=== PATIENT | male | born 1955 | race Caucasian/White ===

== ENCOUNTER 2018-10-18 22:33 | Emergency (ER) | payer MEDICAID, SELFPAY ==
[2018-10-18 22:35] VITALS: BP 136/82; PULSE 86; RESP 18; TEMP 36.3; O2SAT 99; BMI 22.1
--- NOTE | 2018-10-18 23:07 | ED.VISSUMM ---
- ER Visit Summary Date of Service: 10/18/18 Chief Complaint: Dental pain and gum swelling History of Present Illness: The patient is a 63 M no severe past medical history. Chronic dental decay. States for last 3 days he has had worsening pain in his mouth primarily his lower teeth and gums. No fever. No trouble breathing or swallowing. He has a dental appointment but is not till the . He states using Tylenol but is not controlling his pain. Physical Examination: Older male no acute distress. Vital signs are stable afebrile. Significant other at bedside. HEENT exam patient has very very poor dentition. Multiple missing teeth. Multiple eroded teeth or gums. Multiple teeth with severe cavities. Is got multiple areas of gingivitis. I do not see any abscesses or any need to be drained. He has no trismus. He has no trouble swallowing or breathing. There is no Dimas's angina. Neck nontender no lymphadenopathy. Lungs clear to auscultation bilaterally. Heart regular rhythm no murmur. Abdomen soft nontender. Patient moving all 4 extremities. Neurologically is awake alert. Test Results: None Emergency Department Course and Treatment: P.o. Pen-Vee K and Ro[place]. Treatment Plan: Follow-up with his dentist as soon as possible. Warm salt water gargling. Pen-Vee K 4 times a day for 10 days. Rolette for pain and limited Motrin. Disposition: Discharge Impression: Acute on chronic dental decay, gingivitis, dental caries and pain This note was generated with Estimote dictation software. It may contain incorrect words, spelling, and punctuation that were not noted in review of the chart prior to signing ED Disposition - Plan for ED Patient: Referrals: [facility] Sabrina Kern [Primary Care Provider] -
--- NOTE | 2018-10-18 23:11 | ED.DCSUM_ITS ---
- ER Visit Summary Date of Service: 10/18/18 Chief Complaint: Dental pain and gum swelling History of Present Illness: The patient is a 63 M no severe past medical history. Chronic dental decay. States for last 3 days he has had worsening pain in his mouth primarily his lower teeth and gums. No fever. No trouble breathing or swallowing. He has a dental appointment but is not till the . He states using Tylenol but is not controlling his pain. Physical Examination: Older male no acute distress. Vital signs are stable afebrile. Significant other at bedside. HEENT exam patient has very very poor dentition. Multiple missing teeth. Multiple eroded teeth or gums. Multiple teeth with severe cavities. Is got multiple areas of gingivitis. I do not see any abscesses or any need to be drained. He has no trismus. He has no trouble swallowing or breathing. There is no Dimas's angina. Neck nontender no lymphadenopathy. Lungs clear to auscultation bilaterally. Heart regular rhythm no murmur. Abdomen soft nontender. Patient moving all 4 extremities. Neurologically is awake alert. Test Results: None Emergency Department Course and Treatment: P.o. Pen-Vee K and [place]. Treatment Plan: Follow-up with his dentist as soon as possible. Warm salt water gargling. Pen-Vee K 4 times a day for 10 days. Norton for pain and limited Motrin. Disposition: Discharge Impression: Acute on chronic dental decay, gingivitis, dental caries and pain This note was generated with ChickRx dictation software. It may contain incorrect words, spelling, and punctuation that were not noted in review of the chart prior to signing ED Disposition - Plan for ED Patient: Referrals: [facility] Sabrina Kern [Primary Care Provider] -
--- NOTE | 2018-10-18 23:11 | ED.DEP ---
ED Disposition - Plan for ED Patient: Disposition: Home or Assisted Living Instructions: ED [facility] Prescriptions: Hydrocodone Bitart/Apap 5-325 [[place] 5MG-325MG] 1 tab PO Q6H PRN PRN 3 Days #10 tab PRN Reason: Pain Penicillin Vk [Pen-Vee K , V-Cillin K] 500 mg PO 4X/DAY 10 Days tab Referrals: [facility],Sabrina Dalton [Primary Care Provider] - As soon as possible Additional Instructions: See your dentist as soon as possible. Warm salt water gargling. Penicillin 4 times a day. Limited [place] for pain
--- NOTE | 2018-10-18 23:14 | DCINST.ED_ITS ---
ED Disposition - Plan for ED Patient: Disposition: Home or Assisted Living Instructions: ED [facility] Prescriptions: Hydrocodone Bitart/Apap 5-325 [[place] 5MG-325MG] 1 tab PO Q6H PRN PRN 3 Days #10 tab PRN Reason: Pain Penicillin Vk [Pen-Vee K , V-Cillin K] 500 mg PO 4X/DAY 10 Days tab Referrals: [facility],Sabrina Dalton [Primary Care Provider] - As soon as possible Additional Instructions: See your dentist as soon as possible. Warm salt water gargling. Penicillin 4 times a day. Limited [place] for pain
[2018-10-18 23:17] VITALS: BP 137/87; PULSE 78; RESP 16; O2SAT 98
[2018-10-18] MEDS: HYDROcodone Bitartrate/Apap 5/325 Tablet PO (23:18)
== END 2018-10-18 23:28 | disposition home or self-care (01) ==
LOC: ED 23:22
PROVIDERS: Emergency Provider Emergency Medicine; Referring Provider Nurse Practitioner Family
DX: K02.9 Dental caries, unspecified (principal); K05.10 Chronic gingivitis, plaque induced; Z72.0 Tobacco use
CPT/HCPCS: 99283

== ENCOUNTER 2021-05-18 08:46 | Inpatient (IN) | payer MEDICARE, MEDICAID, SELFPAY ==
[2021-05-18] VITALS (14 sets, daily range): BP systolic 91–118; BP diastolic 66–79; PULSE 86–109; RESP 16–30; TEMP 36–36.9; O2SAT 84–98; BMI 22.1; BMI 21.9
--- NOTE | 2021-05-18 09:25 | EKG12_ITS ---
Test Reason : CP Blood Pressure : / mmHG Vent. Rate : 092 BPM Atrial Rate : 092 BPM P-R Int : 130 ms QRS Dur : 102 ms QT Int : 360 ms P-R-T Axes : -01 059 037 degrees QTc Int : 445 ms Normal sinus rhythm Low voltage QRS (Limb Leads) Borderline ECG Confirmed by MELANIE MCDOWELL, JORDAN ([id number]), acquisitions editor CHANTELL CHAVEZ ([id number]) on 05/20/2021 10:23:35 AM Referred By: RIVER Confirmed By:JORDAN NAVARRO MD
--- NOTE | 2021-05-18 09:25 | RAD_ITS ---
STUDY: X-RAY CHEST REASON FOR EXAM: Male, 65 years old. Chest pain/sob. TECHNIQUE: Single AP portable view of the chest. COMPARISON: None. FINDINGS: EKG electrodes are seen. Bilateral perihilar airspace disease. This most likely represents pulmonary edema. Bilateral pneumonias cannot be excluded. There is no demonstrated pleural abnormality. Normal size heart. Normal mediastinum and rajani. Normal visualized pulmonary arteries. There is atherosclerotic calcification of the aortic arch with tortuosity. There are diffuse degenerative changes of the visualized thoracic spine. Normal visualized ribs, clavicles, and shoulders. There is no demonstrated abnormality of the visualized soft tissue structures of the upper abdomen. RAD/Chest 1 View (Portable) IMPRESSION: Bilateral perihilar airspace disease suggestive of pulmonary edema. An infectious process should also be ruled out. Electronically Signed: Corey Peñaloza MD at 10:48 EST , Service support ,
--- NOTE | 2021-05-18 09:27 | ED.VIS.CHEST ---
HPI History of Present Illness Chief Complaint: Chest Pain Informant: patient Onset/Context/Timing Onset: Days (3) Activity at onset: gradual Timing: Intermittent Quality: Positive for - (throbbing) Location: Substernal Current Severity: Moderate Maximum Severity: Moderate Worsened By: - (unknown) Relieved By: Nothing Associated Symptoms: Positive for Dyspnea and Cough; Negative for Nausea, Vomiting, Diaphoresis, Fever and Palpitations Narrative Narrative: Patient is a poor historian stating he has had chest discomfort for 3 days off and on, when asked how he describes his discomfort at first, he states he cannot breathe. On further questioning he states he is having some type of throbbing sensation in his chest when it bothers him, and he points to the sternal area. Does not seem to radiate. He has been short of breath with this obviously, and also describes a cough that is occasionally productive of yellow sputum. Denies any fevers or chills or swelling in his legs or specific orthopnea. He does not have any known medical problems, takes no medications, however this is because he never goes to any physician and has no PCP. He denies any specific exposures to COVID-19, and he is adamant he will not be getting the vaccine and he has not before. PFSH PFSH Medical History no medical history no medical history Home Medications NK 05/18/21 [History Last Taken Unknown] Allergy/AdvReac Type Severity Reaction Status Date / Time No Known Allergies Allergy Verified 05/18/21 08:51 Social History Smoking Status: Current every day smoker tobacco type: cigarettes ROS ROS ED Constitutional Constitutional ED: Reports malaise; Denies chills or fever(s) Eyes Eyes: Denies change in vision or diplopia ENT ENT ED: Denies rhinorrhea or sore throat Cardiovascular Cardiovascular: Reports as per HPI and chest pain; Denies palpitations or pedal edema Respiratory/Chest Respiratory/Chest: Reports as per HPI, cough, dyspnea and productive cough; Denies portable oxygen @ home Gastrointestinal Gastrointestinal: Denies abdominal pain, diarrhea, nausea or vomiting Genitourinary Genitourinary ED: Denies dysuria or hematuria Musculoskeletal Musculoskeletal: Denies back pain or neck pain Integumentary Denies abscess or rash Neurologic Neurologic: Denies headache(s), paresthesias or weakness Psychiatric Psychiatric: Denies anxiety or suicidal thoughts EXAM Physical Exam Const Vital Signs: 05/18/21 08:47 05/18/21 10:23 05/18/21 10:24 Temperature 96.8 F L Temperature Source Temporal Pulse Rate 91 88 Respiratory Rate 28 H 20 H Respiratory Effort Blood Pressure 114/74 100/66 Blood Pressure Mean 87 77 Pulse Ox 84 98 98 Oxygen Delivery Method Room Air Nasal Cannula Nasal Cannula Oxygen Flow Rate (L/min) 2 2 05/18/21 12:17 05/18/21 12:30 05/18/21 12:35 Temperature Temperature Source Pulse Rate 86 Respiratory Rate 16 Respiratory Effort Short of Breath Labored Blood Pressure 97/66 Blood Pressure Mean 76 Pulse Ox 91 95 Oxygen Delivery Method Room Air Nasal Cannula Oxygen Flow Rate (L/min) 4 05/18/21 13:36 Temperature Temperature Source Pulse Rate 86 Respiratory Rate 20 H Respiratory Effort Blood Pressure 91/67 Blood Pressure Mean 75 Pulse Ox 94 Oxygen Delivery Method Nasal Cannula Oxygen Flow Rate (L/min) 3 Positive well nourished, well developed and unkempt General Appearance ED: unkempt, well developed and NAD HEENT Reports moist mucous membranes normocephalic and atraumatic Eyes PERRL and EOMs intact bilaterally Neck full ROM and supple Resp normal respiratory effort, normal air movement, no retractions and no use of accessory muscles Resp Narrative: Possibly few high-pitched rhonchi left base otherwise clear and equal bilaterally Cardio regular rate, regular rhythm, no murmurs and no JVD GI non-tender and non-distended Auscultation: normoactive bowel sounds Palpation: soft Back/Spine no CVA tenderness General Back: other FROM Extremity normal to inspection and no calf tenderness General Extremety ED: Negative for edema, pulses abnormal or tenderness General Extremity: Negative for edema or pulses abnormal Neuro oriented x3, CN's II-XII intact bilaterally and no sensory deficits noted Sensorium / Orientation: awake and alert Motor Exam: strength 5/5 throughout Psych Appearance: unkempt Skin no rashes or lesions noted and no wounds MDM MDM MDM Narrative Medical decision making narrative: Basically, work-up is consistent with Covid pneumonia, renal insufficiency, and lack of a pulmonary embolus. He was hypoxic, he continues to be hypoxic despite 3 L nasal cannula, down to 84% so he is on a higher dose nasal cannula at this time and stable clinically and hemodynamically. Patient is having trouble keeping the nasal cannula in his nose. I do not think he is a good candidate for sending home on oxygen at this time. Started on Decadron. Lab Data Attestation: I reviewed the patient's lab results. Labs: Laboratory Results - last 24 hr 05/18/21 05/18/21 05/18/21 08:53 08:53 08:53 WBC 9.7 RBC 5.50 Hgb 16.8 H Hct 49.1 MCV 89.3 MCH 30.5 MCHC 34.2 RDW Std Deviation 42.9 RDW Coeff of Jan 13.1 Plt Count 219 MPV 10.9 Immature Gran % (Auto) 2.700 H Neut % (Auto) 80.7 H Lymph % (Auto) 12.8 L [place] % (Auto) 3.0 Eos % (Auto) 0.2 Baso % (Auto) 0.6 Absolute Neuts (auto) 7.9 H Absolute Lymphs (auto) 1.25 Nucleated RBC % 0 D-Dimer Quant (PE/DVT) 4.25 H* Sodium 137 Potassium 4.3 Chloride 104 Carbon Dioxide 23.0 Anion Gap 10 BUN 34 H Creatinine 2.21 H Estim Creat Clear Calc 32.96 Est GFR (MDRD) Af Amer 38 L Est GFR (MDRD) Non-Af 32 L BUN/Creatinine Ratio 15.4 Glucose 119 H Lactic Acid Calcium 8.7 Troponin I High Sens 14 05/18/21 08:53 WBC RBC Hgb Hct MCV MCH MCHC RDW Std Deviation RDW Coeff of Jan Plt Count MPV Immature Gran % (Auto) Neut % (Auto) Lymph % (Auto) [place] % (Auto) Eos % (Auto) Baso % (Auto) Absolute Neuts (auto) Absolute Lymphs (auto) Nucleated RBC % D-Dimer Quant (PE/DVT) Sodium Potassium Chloride Carbon Dioxide Anion Gap BUN Creatinine Estim Creat Clear Calc Est GFR (MDRD) Af Amer Est GFR (MDRD) Non-Af BUN/Creatinine Ratio Glucose Lactic Acid 4.6 H* Calcium Troponin I High Sens Radiography Diagnostic Testing: Clinical Impression(s) from Imaging Studies Chest X-Ray 05/18/21 09:25 IMPRESSION: Bilateral perihilar airspace disease suggestive of pulmonary edema. An infectious process should also be ruled out. Electronically Signed: Corey Peñaloza MD at 10:48 EST , Service support , Chest CTA 05/18/21 10:08 IMPRESSION: 1. No CT evidence of pulmonary embolism. 2. Severe bilateral pneumonia, pulmonary edema, or ARDS. 3. Suspect reactive mediastinal lymphadenopathy. Electronically Signed: Xavier Ortiz MD at 11:27 EST Tel , Service support , EKG Initial EKG: Attestation: I personally reviewed and interpreted this EKG as follows: Interpretation: Sinus Rhythm and No Acute Injury Pattern Comments: Late transition. Low voltage limb leads without tachycardia or electrical alternans. Prior EKG tracings: not available for review Prior: No Prior Discharge Plan Dx/Rx/DC Orders Clinical Impression: Hypoxemia, Pneumonia due to COVID-19 virus Disposition Disposition: Acute Care Hospital [facility]
[2021-05-18 09:46] LABS: Absolute Lymphocyte Count 1.25 X10^3/uL (0.83-4.51); Absolute Neutrophil Count 7.9 X10^3/uL (2.0-7.7); Basophil# 0.06 X10^3/uL; Basophil% 0.6 % (0-1); Eosinophil# 0.02 X10^3/uL; Eosinophils% 0.2 % (0-5); Hematocrit 49.1 % (40-54); Hemoglobin 16.8 g/dL (13.0-16.5); Lymphocyte # 1.25 X10^3/ul (0.83-4.51); Lymphocyte % 12.8 % (19-41); Mean Corp Hgb Conc 34.2 g/dL (32-36); Mean Corpuscular Hgb 30.5 pg (27.0-32.0); Mean Corpuscular Volume 89.3 fL (80-94); Mean Platelet Vol. 10.9 fl (6.2-12.0); Monocyte# 0.29 X10^3/uL; NRBC Flagged by Analyzer 0 % (0-5); Neutrophil # 7.85 X10^3/uL (2.7-7.7); Neutrophil % 80.7 % (47-70); POSITIVE MORPHOLOGY YES; Platelet Count 219 K/mm3 (150-450); RBC Distribution Width CV 13.1 % (11.6-14.6); RBC Distribution Width SD 42.9 fl (35.1-43.9); White Blood Count 9.7 K/mm3 (4.4-11.0)
[2021-05-18 09:48] LABS: Differential Indicated SCAN CRITERIA MET
[2021-05-18 10:02] LABS: Anion Gap 10 (5-15); BUN 34 mg/dL (7-18); BUN/Creat Ratio 15.4 RATIO (10-20); Calcium,Total 8.7 mg/dL (8.5-10.1); Chloride 104 mmol/L (98-107); Creatinine, Serum 2.21 mg/dL (0.70-1.30); EST Glomerular Filtration Rate 32 mL/min (>60); Est Glom Filt Rate - Afr Amer 38 mL/min (>60); Estimated Creatinine Clearance 32.96 ml/min; Glucose 119 mg/dL (74-106); Potassium 4.3 mmol/L (3.5-5.1); Sodium Level 137 mmol/L (136-145); Troponin-I HS 14 pg/mL (3.0-78.0)
[2021-05-18 10:03] LABS: D-Dimer Quantitative (DVT/PE) 4.25 FEU/ug/m (0.27-0.49)
--- NOTE | 2021-05-18 10:08 | CT_ITS ---
STUDY: CTA CHEST REASON FOR EXAM: Male, 65 years old. cp, sob, elevated d-dimer RADIATION DOSAGE (If Supplied By Facility): CTDIvol = ( 11.54 ) mGy, DLP = ( 403.77 ) mGycm TECHNIQUE: The examination was performed with the intravenous administration of IV 100mL Isovue-370. Post-processing of the angiographic images was performed, with multiplanar reformation and 3D reconstruction. Individualized dose optimization techniques were used for this CT. COMPARISON: Chest x-ray earlier today FINDINGS: Normal enhancement of the main pulmonary artery and right and left pulmonary arteries. Normal enhancement of the bilateral peripheral pulmonary arteries. There is no demonstrated pulmonary embolism. Normal thoracic aorta and visualized great vessels. There is no demonstrated aortic dissection. Normal heart and pericardium. Several mildly enlarged mediastinal lymph nodes which are likely reactive. The largest discrete lymph node is a subcarinal lymph node measuring 1.5 x 2.0 cm. Normal hilar regions. Normal visualized trachea and bronchi. The lungs are well expanded. Bilateral diffuse groundglass and alveolar opacities consistent with pneumonia, pulmonary edema, or ARDS. Mild emphysematous changes. Normal pleura. Normal chest wall structures. Normal osseous structures. Normal visualized upper abdomen. CT/CTA Chest W/WO Contrast IMPRESSION: 1. No CT evidence of pulmonary embolism. 2. Severe bilateral pneumonia, pulmonary edema, or ARDS. 3. Suspect reactive mediastinal lymphadenopathy. Electronically Signed: Xavier Ortiz MD at 11:27 EST Tel , Service support ,
[2021-05-18 10:13] LABS: Lactic Acid 4.6 mmol/L (0.4-1.9)
[2021-05-18] MEDS: Aspirin 81 MG TAB.CHEW 324 MG PO (10:28)
[2021-05-18] MEDS: 0.9% Normal Saline 1,000 ML 999 ML IV (10:28)
[2021-05-18 13:42] LABS: Reflex Lactate? Y
[2021-05-18] MEDS: dexAMETHasone 10 MG/ML Vial 6 MG IV (14:30)
[2021-05-18 15:01] LABS: Lactic Acid 1.5 mmol/L (0.4-1.9)
--- NOTE | 2021-05-18 15:38 | HP.PCM.HOS_ITS ---
HPI - General HPI Narrative KAI MORALES, is a 65 M who presents to the hospital with shortness of breath and mild chest pain. Symptoms have been going on for about 3 days now. He did have an episode when this first started that showed some dark stools but he has not had any further episodes of dark stool since then. Hemoglobin on admission is 16.8. He is unvaccinated and was found to have Covid pneumonia here in the hospital. He has been hypoxic down into the 80s here as well. Hemoglobin is 16.8 as stated previously, his creatinine is 2.21 however he does not see a doctor therefore we do not know what his baseline renal function is. Because of his chest pain troponin was obtained which was unremarkable and EKG was nonischemic. [facility] Medical History no medical history Home Medications NK 05/18/21 [History Last Taken Unknown] Allergy/AdvReac Type Severity Reaction Status Date / Time No Known Allergies Allergy Verified 05/18/21 08:51 Family History (Updated 05/18/21 @ 15:[address] Tommy Sousa MD) Other Cancer Surgical History no surgical history no surgical history Social History Smoking Status: Current every day smoker tobacco type: cigarettes ROS Constitutional Constitutional: Denies chills, fatigue, fever(s) or malaise Eyes Eyes: Denies blurry vision ENT HEENT: Denies headache(s) or nasal discharge Cardiovascular Cardiovascular: Denies chest pain, dyspnea on exertion or syncope Respiratory/Chest Respiratory/Chest: Reports cough and shortness of breath at rest; Denies shortness of breath with exertion Gastrointestinal Gastrointestinal: Denies constipation, diarrhea, nausea or vomiting Genitourinary Genitourinary: Denies dysuria Neurologic Neurologic: Denies focal weakness, numbness or tremor(s) Psychiatric Psychiatric: Denies anxiety or depression Vital Signs Vital Signs Vital Signs: 05/18/21 08:47 05/18/21 10:23 05/18/21 10:24 Temperature 96.8 F L Temperature Source Temporal Pulse Rate 91 88 Respiratory Rate 28 H 20 H Respiratory Effort Blood Pressure 114/74 100/66 Blood Pressure Mean 87 77 Pulse Ox 84 98 98 Oxygen Delivery Method Room Air Nasal Cannula Nasal Cannula Oxygen Flow Rate (L/min) 2 2 05/18/21 12:17 05/18/21 12:30 05/18/21 12:35 Temperature Temperature Source Pulse Rate 86 Respiratory Rate 16 Respiratory Effort Short of Breath Labored Blood Pressure 97/66 Blood Pressure Mean 76 Pulse Ox 91 95 Oxygen Delivery Method Room Air Nasal Cannula Oxygen Flow Rate (L/min) 4 05/18/21 13:36 05/18/21 14:28 05/18/21 15:23 Temperature 97.8 F Temperature Source Temporal Pulse Rate 86 91 98 Respiratory Rate 20 H 18 20 H Respiratory Effort Blood Pressure 91/67 118/67 108/79 Blood Pressure Mean 75 84 88 Pulse Ox 94 93 90 Oxygen Delivery Method Nasal Cannula Nasal Cannula Nasal Cannula Oxygen Flow Rate (L/min) 3 4 4 Weight Weight: 158 lb 6.4 oz Body Mass Index (BMI) 22.1 Physical Exam Const alert, oriented x3 and no apparent distress General Appearance: cooperative HEENT normocephalic and moist oral mucous membranes Eyes PERRL, EOMs intact bilaterally and conjunctivae normal Neck supple and no JVD Resp normal respiratory effort, no retractions and no use of accessory muscles Auscultation: crackles; Negative for rales, rhonchi or wheezes Cardio regular rate, regular rhythm, S1 normal heart sound, S2 normal heart sound and no murmurs GI soft to palpation, non-tender and non-distended; Negative for hepatosplenomegaly Extremity no clubbing, cyanosis or edema Skin no rashes or lesions noted Neuro no focal motor deficits and no sensory deficits noted Psych affect normal Appearance: appropriate Results Lab / Micro Data Result Diagrams: 05/18/21 08:53 05/18/21 08:53 Labs: Laboratory Results - last 24 hr 05/18/21 08:53: WBC 9.7, RBC 5.50, Hgb 16.8 H, Hct 49.1, MCV 89.3, MCH 30.5, MCHC 34.2, RDW Std Deviation 42.9, RDW Coeff of Jan 13.1, Plt Count 219, MPV 10.9, Immature Gran % (Auto) 2.700 H, Neut % (Auto) 80.7 H, Lymph % (Auto) 12.8 L, [place] % (Auto) 3.0, Eos % (Auto) 0.2, Baso % (Auto) 0.6, Absolute Neuts (auto) 7.9 H, Absolute Lymphs (auto) 1.25, Nucleated RBC % 0 05/18/21 08:53: Sodium 137, Potassium 4.3, Chloride 104, Carbon Dioxide 23.0, Anion Gap 10, BUN 34 H, Creatinine 2.21 H, Estim Creat Clear Calc 32.96, Est GFR (MDRD) Af Amer 38 L, Est GFR (MDRD) Non-Af 32 L, BUN/Creatinine Ratio 15.4, Glucose 119 H, Calcium 8.7, Troponin I High Sens 14 05/18/21 08:53: D-Dimer Quant (PE/DVT) 4.25 H* 05/18/21 08:53: Lactic Acid 4.6 H* 05/18/21 14:13: Lactic Acid 1.5 Micro: Microbiology 05/18/21 08:53 Interface Orders SARS-CoV-2 Antigen (Rapid) - Final SARS-CoV-2 (COVID 19) Radiology Impression Chest X-Ray 05/18/21 09:25 IMPRESSION: Bilateral perihilar airspace disease suggestive of pulmonary edema. An infectious process should also be ruled out. Electronically Signed: Corey Peñaloza MD at 10:48 EST , Service support , Chest CTA 05/18/21 10:08 IMPRESSION: 1. No CT evidence of pulmonary embolism. 2. Severe bilateral pneumonia, pulmonary edema, or ARDS. 3. Suspect reactive mediastinal lymphadenopathy. Electronically Signed: Xavier Ortiz MD at 11:27 EST Tel , Service support , Assessment & Plan Assessment/Plan (1) Acute respiratory failure with hypoxia: (2) Pneumonia due to COVID-19 virus: PLAN: 1. Acute hypoxic respiratory failure secondary to COVID-19 pneumonia ?Kidney function is 2.21, this may be consistent with an LIBIA but we do not have any baseline therefore this precludes remdesivir use ?Continue with Decadron for 10 days ?Covid symptoms started about 3 days ago so he will come out of quarantine on 06/03/2021 ?She is unvaccinated ?Given his renal function will give him some IV fluids and if he does improve significantly than that would indicate that this renal function is an LIBIA ?Unlikely that he has active GI bleed, his hemoglobin is 16.8, will monitor and if drops would recommend further work-up ?CT of the chest was negative for PE but is D-dimer was elevated to 4.25, therefore we will continue with twice daily dosing of Lovenox DVT: Lovenox Charges/Coding Visit Charges Inpatient E&M: 07405 Init Hosp L2
[2021-05-18] MEDS: Albuterol Sulfate 8 gm Inhaler (60 puffs) 3 PUFF INHALATION (15:41)
[2021-05-18] MEDS: 0.9% Normal Saline 1,000 ML 100 ML IV (20:47)
[2021-05-18] MEDS: Enoxaparin 30 MG/0.3 ML Syringe SC (20:47)
[2021-05-19] VITALS (11 sets, daily range): BP systolic 112–143; BP diastolic 67–80; PULSE 86–125; RESP 16–20; TEMP 36.6–37.2; O2SAT 93–95
[2021-05-19 07:57] LABS: Absolute Lymphocyte Count 0.62 X10^3/uL (0.83-4.51); Absolute Neutrophil Count 7.7 X10^3/uL (2.0-7.7); Basophil# 0.01 X10^3/uL; Basophil% 0.1 % (0-1); Hematocrit 40.3 % (40-54); Hemoglobin 13.4 g/dL (13.0-16.5); Lymphocyte # 0.62 X10^3/ul (0.83-4.51); Mean Corp Hgb Conc 33.3 g/dL (32-36); Mean Corpuscular Hgb 29.5 pg (27.0-32.0); Mean Corpuscular Volume 88.8 fL (80-94); Mean Platelet Vol. 11.3 fl (6.2-12.0); Monocyte# 0.33 X10^3/uL; Monocyte% 3.7 % (0-10); NRBC Flagged by Analyzer 0 % (0-5); Neutrophil # 7.67 X10^3/uL (2.7-7.7); Neutrophil % 86.8 % (47-70); POSITIVE MORPHOLOGY YES; Platelet Count 231 K/mm3 (150-450); RBC Distribution Width CV 13.2 % (11.6-14.6); RBC Distribution Width SD 43.3 fl (35.1-43.9); Red Blood Count 4.54 M/mm3 (4.6-6.2); White Blood Count 8.8 K/mm3 (4.4-11.0)
[2021-05-19 08:12] LABS: Differential Indicated SCAN CRITERIA MET
[2021-05-19 08:52] LABS: Anion Gap 9 (5-15); BUN 28 mg/dL (7-18); BUN/Creat Ratio 22.2 RATIO (10-20); Calcium,Total 7.2 mg/dL (8.5-10.1); Chloride 110 mmol/L (98-107); Creatinine, Serum 1.26 mg/dL (0.70-1.30); EST Glomerular Filtration Rate 61 mL/min (>60); Est Glom Filt Rate - Afr Amer 73 mL/min (>60); Estimated Creatinine Clearance 56.65 ml/min; Glucose 115 mg/dL (74-106); Potassium 4.6 mmol/L (3.5-5.1); Sodium Level 139 mmol/L (136-145)
[2021-05-19] MEDS: Enoxaparin 30 MG/0.3 ML Syringe SC ×2 (09:12→21:14)
[2021-05-19] MEDS: dexAMETHasone 4 MG Tablet 6 MG PO (09:12)
[2021-05-19] MEDS: Acetaminophen 325 MG Tablet 650 MG PO (14:00)
--- NOTE | 2021-05-19 14:48 | CHAPLAIN ---
Type of Pastoral Visit ___ Initial Visit ___ Follow-up Visit ___ On-call Visit ___ General Patient Visit ___ Spiritual Assessment ___ Family Conference ___ Bereavement ___ Rapid Response ___ Code Blue _x__ Other (describe below) Pastoral Care Referral From _x__ Patient ___ Family ___ Nurse ___ Physician ___ Associate Professor Of Counseling ___ Magnetizer ___ Other (describe below) Sacrament/Intervention ___ Active listening ___ Anointing ___ Spiritism ___ Bereavement ___ Communion ___ Ina exploration ___ ___ Life review ___ Prayer ___ Reconciliation ___ Sacrament of Sick ___ Supportive presence ___ Wedding _x__ Other (describe below) Pastoral Comments phone call into isolation room; the patient is able to answer the phone and talk briefly; pt reports that he is doing well and has no needs at this time; pt states he has been talking to family members on the phone
--- NOTE | 2021-05-19 15:00 | CASEMGMT ---
NAIMA GUTIERREZ Assessment: Face to Face with pt for initial transition planning/care coordination assessment. NAIMA GUTIERREZ introduced self and role at [facility], pt voices understanding and consents to assessment. Pt is A/O x4 and answers all questions appropriately at this time. Pt sitting up in bed with O2 on in no distress. Care providers, pharmacy, and demographics verified/updated. Admitting Dx: COVID PCP:[facility] Specialists: Pt denies. Preferred Pharmacy: [facility] Insurance: [facility], [facility] Prescription Benefit: yes LW/HPOA: Pt denies having a LW/DPOA and denies need for info regarding AD. LNOK: Talita Desouza, Living Arrangements: Pt lives with and son in a two story house with no steps to enter. Pt reports he is I in ADL's and denies concerns at home. Transportation: Pt states his transports him to medical appts as he does not drive. DME/HHC/SNF: Pt denies having any DME in the home, hx of HHC or SNF stays. Pt states his and son do not have COVID. He states he was tested at [facility]. Pt states he is able to quarantine from them using separate bedrooms and bathrooms. Pt has family who can provide him with groceries and supplies. Discussed local in network DME companies should pt need to go home with O2, pt has no preference. Pt states no concerns with going home at time of dc. Pt states no further concerns/needs. CM to follow. Advised pt to ask CM if any further question/concerns/needs arise, voices understanding. Pt Goal: Home Plan: Home
--- NOTE | 2021-05-19 15:26 | PN.HOSP_ITS ---
Subjective Subjective Patient states his breathing feels better today. He has required up titration of his oxygen now on 11 L of high flow. Oxygenation has been stable on this thus far. He does have a history of tobacco abuse for a long period of time and was smoking up until approximately 5 days prior to admission. He admits to [facility] [place] close to a pack a day. Objective Data Objective Data Vital Signs: Vital Signs Temp Pulse Resp BP Pulse Ox 98.6 F 108 H 18 118/67 94 05/19/21 12:21 05/19/21 12:21 05/19/21 12:21 05/19/21 12:05/19/21 12: Oxygen Flow Rate (L/min) 11 Oxygen Delivery Method High Flow Weight: 70.4 kg Body Mass Index (BMI) 21.9 Intake & Output: Intake and Output for Last 24 Hours 05/17/21 05/18/21 05/19/21 23:59 23:59 23:59 Intake Total 1000 / 1000 2049 Balance 1000 / 1000 2049 Lab / Micro Data Result Diagrams: 05/19/21 07:00 05/19/21 07:00 Labs: Laboratory Results - last 24 hr 05/19/21 07:00: WBC 8.8, RBC 4.54 L, Hgb 13.4, Hct 40.3, MCV 88.8, MCH 29.5, MCHC 33.3, RDW Std Deviation 43.3, RDW Coeff of Jan 13.2, Plt Count 231, MPV 11.3, Immature Gran % (Auto) 2.400 H, Neut % (Auto) 86.8 H, Lymph % (Auto) 7.0 L , Desha % (Auto) 3.7, Eos % (Auto) 0.0, Baso % (Auto) 0.1, Absolute Neuts (auto) 7.7, Absolute Lymphs (auto) 0.62 L, Nucleated RBC % 0 05/19/21 07:00: Sodium 139, Potassium 4.6, Chloride 110 H, Carbon Dioxide 20.0 L , Anion Gap 9, BUN 28 H, Creatinine 1.26, Estim Creat Clear Calc 56.65, Est GFR (MDRD) Af Amer 73, Est GFR (MDRD) Non-Af 61, BUN/Creatinine Ratio 22.2 H, Glucose 115 H, Calcium 7.2 L Micro: Microbiology 05/18/21 08:53 Interface Orders SARS-CoV-2 Antigen (Rapid) - Final SARS-CoV-2 (COVID 19) Physical Exam Const alert, oriented x3, no apparent distress and average body habitus Constitutional Narrative: Older somewhat disheveled white male sitting up in bed, appears comfortable, nontoxic, mild tachypnea and dyspnea with conversation Exam Limitations: no limitations HEENT head/scalp atraumatic and moist oral mucous membranes HEENT Narrative: Poor dentition, Mallampati 2, no thrush Head and Scalp: normocephalic Resp no retractions and no use of accessory muscles Resp Narrative: Mild tachypnea and conversational dyspnea, diffusely diminished Auscultation: Negative for crackles, rales, rhonchi or wheezes Cardio regular rhythm, S1 normal heart sound, S2 normal heart sound, no murmurs, no rub, no gallops, no clicks and no JVD Cardio Narrative: Mild tachycardia GI normal to inspection, nondistended, normoactive bowel sounds, soft to palpation, non-tender and non-distended Extremity no clubbing, cyanosis or edema Peripheral Pulses: Yes pulses 2+ throughout Neuro oriented x3, moves all extremities and no focal motor deficits Sensorium / Orientation: awake and alert Speech: speech normal Assessment & Plan Assessment/Plan (1) Acute respiratory failure with hypoxia: (2) Pneumonia due to COVID-19 virus: (3) LIBIA (acute kidney injury): (4) Metabolic acidosis: (5) Hyperchloremia: PLAN: Acute hypoxic respiratory failure secondary to COVID-19 pneumonia -Symptoms started 05/15/2021 will need isolation until 06/04/2021 -Vaccination recommended although patient is adamant that he will not be receiving one -Continue Decadron day 2 of 10 -Start remdesivir with normalization of serum creatinine day 1 of 5 -Patient currently on heated high flow nasal cannula at 11 L with oxygen saturations 93 to 95% -Continue incentive spirometer and Acapella -Encourage mobility and prone lying as able -Check sputum culture if patient is able to produce -DuoNebs -We will consult for baricitinib if patient ends up on air Vo LIBIA -Resolved with IV hydration -Serum creatinine is now 1.26 from 2.21 on admission -Patient received 1 L IV hydration -Monitor -Avoid nephrotoxins as able Lactic acidosis -Suspect from hypoxia -Resolved Metabolic acidosis secondary to hyperchloremia -Patient has completed IV fluids -Repeat a.m. lab Tobacco abuse -Given tobacco abuse history I suspect patient may have COPD at baseline that is undiagnosed -Nicotine patch ordered -Recommend cessation -Would benefit from outpatient PFTs after discharge DVT prophylaxis Enoxaparin 30 mg twice daily CODE STATUS -Full code Charges/Coding Visit Charges Inpatient E&M: 40181 Subs Hosp L2
[2021-05-19] MEDS: Ipratropium/Albuterol Sulfate 3 ML AMPUL.NEB INHALATION (19:48)
[2021-05-19] MEDS: guaiFENesin 1,200 MG Tablet 1200 MG PO (21:15)
[2021-05-20] VITALS (16 sets, daily range): BP systolic 103–117; BP diastolic 59–81; PULSE 85–109; RESP 18–24; TEMP 36.6; O2SAT 88–96
[2021-05-20 06:50] LABS: Hematocrit 37.9 % (40-54); Hemoglobin 12.9 g/dL (13.0-16.5); Mean Corpuscular Hgb 30.2 pg (27.0-32.0); Mean Corpuscular Volume 88.8 fL (80-94); Mean Platelet Vol. 11.1 fl (6.2-12.0); Platelet Count 258 K/mm3 (150-450); RBC Distribution Width CV 13.7 % (11.6-14.6); RBC Distribution Width SD 44.6 fl (35.1-43.9); Red Blood Count 4.27 M/mm3 (4.6-6.2); White Blood Count 11.1 K/mm3 (4.4-11.0)
[2021-05-20] MEDS: Ipratropium/Albuterol Sulfate 3 ML AMPUL.NEB INHALATION ×4 (06:55→20:41)
[2021-05-20 07:12] LABS: ALB/GLOB Ratio 0.5 RATIO (0.9-2.4); AST(SGOT) 81 U/L (15-37); Alanine Aminotransfer ALT/SGPT 26 U/L (16-61); Albumin, Serum 2.1 g/dL (3.2-5.0); Alkaline Phosphatase 111 U/L (45-117); Anion Gap 7 (5-15); BUN 31 mg/dL (7-18); BUN/Creat Ratio 29.5 RATIO (10-20); Calcium,Total 8.2 mg/dL (8.5-10.1); Chloride 112 mmol/L (98-107); Creatinine, Serum 1.05 mg/dL (0.70-1.30); EST Glomerular Filtration Rate 75 mL/min (>60); Est Glom Filt Rate - Afr Amer 90 mL/min (>60); Estimated Creatinine Clearance 67.98 ml/min; Globulin 4.4 g/dL (2.2-4.2); Glucose 139 mg/dL (74-106); Potassium 4.5 mmol/L (3.5-5.1); Protein, Total 6.5 g/dL (6.4-8.2); Sodium Level 143 mmol/L (136-145)
--- NOTE | 2021-05-20 08:52 | PCS.PANDOC ---
PANDEMIC DOCUMENTATION INITIATED: Date: 01/26/2021 Time: 190
[2021-05-20] MEDS: guaiFENesin 1,200 MG Tablet 1200 MG PO ×2 (08:56→20:56)
[2021-05-20] MEDS: dexAMETHasone 4 MG Tablet 6 MG PO (08:56)
[2021-05-20] MEDS: Enoxaparin 30 MG/0.3 ML Syringe SC ×2 (08:56→20:56)
[2021-05-20] MEDS: 0.9% Saline Lock 10 ML Syringe IV (10:33)
--- NOTE | 2021-05-20 14:04 | PCM.PN.HOSP ---
Subjective Subjective Patient states his breathing is feeling better today. He has been able to be weaned from 11 to 7 L nasal cannula. He states that he is coughing up sputum and quite a bit of it. Sputum culture is pending. No other issues noted and patient has no other needs at this time. Objective Data Objective Data Vital Signs: Vital Signs Temp Pulse Resp BP Pulse Ox 97.9 F 95 20 H 106/70 92 05/20/21 08:49 05/20/21 12:27 05/20/21 10:58 05/20/21 08:49 05/20/21 12:27 Oxygen Flow Rate (L/min) 7 Oxygen Delivery Method High Flow Weight: 70.4 kg Body Mass Index (BMI) 21.9 Intake & Output: Intake and Output for Last 24 Hours 05/18/21 05/19/21 05/20/21 23:59 23:59 23:59 Intake Total 1000 / 1000 2750 / 2750 550 / 550 Output Total 500 / 500 Balance 1000 / 1000 2750 / 2750 50 / 50 Lab / Micro Data Result Diagrams: 05/20/21 06:30 05/20/21 06:30 Labs: Laboratory Results - last 24 hr 05/20/21 06:30: WBC 11.1 H, RBC 4.27 L, Hgb 12.9 L, Hct 37.9 L, MCV 88.8, MCH 30.2, MCHC 34.0, RDW Std Deviation 44.6 H, RDW Coeff of Jan 13.7, Plt Count 258, MPV 11.1 05/20/21 06:30: Sodium 143, Potassium 4.5, Chloride 112 H, Carbon Dioxide 24.0, Anion Gap 7, BUN 31 H, Creatinine 1.05, Estim Creat Clear Calc 67.98, Est GFR (MDRD) Af Amer 90, Est GFR (MDRD) Non-Af 75, BUN/Creatinine Ratio 29.5 H, Glucose 139 H, Calcium 8.2 L, Total Bilirubin 0.70, AST 81 H, ALT 26, Alkaline Phosphatase 111, Total Protein 6.5, Albumin 2.1 L, Globulin 4.4 H, Albumin/Globulin Ratio 0.5 L Micro: Microbiology 05/20/21 07:08 Sputum, Expectorated/Coughed Gram Stain - Final 05/18/21 09:42 Blood Culture (Wb) - Anticubital Left Blood Culture - Preliminary No growth in 48 hours. 05/18/21 08:53 Blood Culture (Wb) - Anticubital Right Blood Culture - Preliminary No growth in 48 hours. 05/18/21 08:53 Interface Orders SARS-CoV-2 Antigen (Rapid) - Final SARS-CoV-2 (COVID 19) Physical Exam Const alert, oriented x3, no apparent distress and average body habitus Constitutional Narrative: Older white male sitting up in a chair at the bedside watching television, appears comfortable, nontoxic, nursing at bedside General Appearance: cooperative Exam Limitations: no limitations HEENT normocephalic, head/scalp atraumatic and moist oral mucous membranes HEENT Narrative: Edentulous, Mallampati 2, no thrush Head and Scalp: normocephalic Resp normal respiratory effort, no retractions and no use of accessory muscles Resp Narrative: Tachypnea has resolved, no conversational dyspnea, mildly diminished diffusely Auscultation: Negative for crackles, rales, rhonchi or wheezes Cardio regular rate, regular rhythm, S1 normal heart sound, S2 normal heart sound, no murmurs, no rub, no gallops, no clicks and no JVD GI normal to inspection, nondistended, normoactive bowel sounds, soft to palpation, non-tender and non-distended; Negative for hepatosplenomegaly Extremity no clubbing, cyanosis or edema Peripheral Pulses: Yes pulses 2+ throughout Neuro oriented x3, moves all extremities and no focal motor deficits Sensorium / Orientation: awake and alert Speech: speech normal Psych Appearance: appropriate Assessment & Plan Assessment/Plan (1) Acute respiratory failure with hypoxia: (2) Pneumonia due to COVID-19 virus: (3) Bacterial pneumonia: PLAN: Acute hypoxic respiratory failure secondary to COVID-19 pneumonia -Symptoms started 05/15/2021 will need isolation until 06/04/2021 -Vaccination recommended although patient is adamant that he will not be receiving one -Continue Decadron day 3 of -Start remdesivir with normalization of serum creatinine day 2 of 5 -Patient currently on heated high flow nasal cannula at 7 L with oxygen saturations 92 to 95% -Continue incentive spirometer and Acapella -Encourage mobility and prone lying as able -Capri -We will consult for baricitinib if patient ends up on air Vo Bacterial pneumonia -Sputum culture shows Gram stain positive for gram-positive cocci in chains and clusters as well as gram-negative cocci bacillus -Start Vanco and Zosyn -Await culture results with identification and sensitivities LIBIA -Resolved Metabolic acidosis secondary to hyperchloremia -Resolved Tobacco abuse -Given tobacco abuse history I suspect patient may have COPD at baseline that is undiagnosed -Nicotine patch ordered -Recommend cessation -Would benefit from outpatient PFTs after discharge DVT prophylaxis Enoxaparin 30 mg twice daily CODE STATUS -Full code Charges/Coding Visit Charges Inpatient E&M: 51690 Subs Hosp L2
--- NOTE | 2021-05-20 15:34 | NURSING ---
spoke with shyanne in phamacy about 1400 vanc to be started and not here -she wayne she will check on that
[2021-05-20] MEDS: Vancomycin IV 1,000 MG/200 ML BAG 200 MG IV (15:55)
--- NOTE | 2021-05-20 15:59 | NURSING ---
vancomycin just arrived
--- NOTE | 2021-05-20 17:02 | PCM.RX.CS ---
Consult Pharmacy has been consulted to manage selected antiobiotic: Vancomycin Type of Consult: New start Suspected Infection: Pneumonia Labs: Sodium 143 mmol/L (136-145) 05/20/21 06:30 Potassium 4.5 mmol/L (3.5-5.1) 05/20/21 06:30 Chloride 112 mmol/L (98-107) H 05/20/21 06:30 Carbon Dioxide 24.0 mmol/L (21.0-32.0) 05/20/21 06:30 Anion Gap 7 (5-15) 05/20/21 06:30 BUN 31 mg/dL (7-18) H 05/20/21 06:30 Creatinine 1.05 mg/dL (0.70-1.30) 05/20/21 06:30 Est GFR (MDRD) Af Amer 90 mL/min (>60) 05/20/21 06:30 Est GFR (MDRD) Non-Af 75 mL/min (>60) 05/20/21 06:30 BUN/Creatinine Ratio 29.5 RATIO (10-20) H 05/20/21 06:30 Glucose 139 mg/dL (74-106) H 05/20/21 06:30 Microbiology: Microbiology 05/20/21 07:08 Sputum, Expectorated/Coughed Gram Stain - Final 05/18/21 09:42 Blood Culture (Wb) - Anticubital Left Blood Culture - Preliminary No growth in 48 hours. 05/18/21 08:53 Blood Culture (Wb) - Anticubital Right Blood Culture - Preliminary No growth in 48 hours. 05/18/21 08:53 Interface Orders SARS-CoV-2 Antigen (Rapid) - Final SARS-CoV-2 (COVID 19) Goal Trough: 15-20 mcg/mL Pharmacy Plan for Drug Dosing: NEW START IV VANCOMYCIN Consulting Physician: Dr. Correa Indication: Pneumonia Goal Trough: 15-20 SrCr: 1.05 CrCl: 68 mL/min Comments: Initial 1g IV x1 ordered and administered 05/20/21 @1555 Vancomcyin Dose: 750mg IV Q12h to start 05/21/21 @0400 Pending Level: 05/22/21 @0330, prior to 4th total dose of vancomycin per protocol Pharmacy Service will continue to monitor and adjust dosing as required.
[2021-05-21] VITALS (12 sets, daily range): BP systolic 103–123; BP diastolic 59–67; PULSE 66–88; RESP 18–22; TEMP 36.3–36.6; O2SAT 73–97
[2021-05-21] MEDS: Ipratropium/Albuterol Sulfate 3 ML AMPUL.NEB INHALATION ×4 (07:49→19:54)
[2021-05-21 07:56] LABS: Hematocrit 37.8 % (40-54); Hemoglobin 12.4 g/dL (13.0-16.5); Mean Corp Hgb Conc 32.8 g/dL (32-36); Mean Corpuscular Hgb 29.2 pg (27.0-32.0); Mean Corpuscular Volume 89.2 fL (80-94); Mean Platelet Vol. 11.3 fl (6.2-12.0); Platelet Count 309 K/mm3 (150-450); RBC Distribution Width CV 13.9 % (11.6-14.6); RBC Distribution Width SD 45.2 fl (35.1-43.9); Red Blood Count 4.24 M/mm3 (4.6-6.2); White Blood Count 11.5 K/mm3 (4.4-11.0)
[2021-05-21] MEDS: dexAMETHasone 4 MG Tablet 6 MG PO (08:31)
[2021-05-21] MEDS: guaiFENesin 1,200 MG Tablet 1200 MG PO ×2 (08:32→20:17)
[2021-05-21] MEDS: Furosemide 40 MG/4 ML Vial IV (08:32)
[2021-05-21] MEDS: 0.9% Saline Lock 10 ML Syringe IV (08:32)
[2021-05-21] MEDS: Enoxaparin 30 MG/0.3 ML Syringe SC ×2 (08:32→20:17)
--- NOTE | 2021-05-21 11:18 | PCM.PN.HOSP ---
Subjective Subjective Patient reports he is doing about the same. He is still coughing up sputum. We discussed the fact that it appears that he has aspiration pneumonia on top of his Covid viral pneumonia. He has no acute complaints. He remains on supplemental oxygen between 6 and 7 L with oxygen saturations 91 to 95%. Objective Data Objective Data Vital Signs: Vital Signs Temp Pulse Resp BP Pulse Ox 97.9 F 75 22 H 123/67 H 91 05/21/21 08:27 05/21/21 11:05 05/21/21 11:05 05/21/21 08:27 05/21/21 11:05 Oxygen Flow Rate (L/min) 7 Oxygen Delivery Method Nasal Cannula Weight: 69.3 kg Body Mass Index (BMI) 21.9 Intake & Output: Intake and Output for Last 24 Hours 05/19/21 05/20/21 05/21/21 23:59 23:59 23:59 Intake Total 2750 / 2750 1100 / 1100 865 / 865 Output Total 500 / 500 Balance 2750 / 2750 600 / 600 865 / 865 Lab / Micro Data Result Diagrams: 05/21/21 07:00 05/20/21 06:30 Labs: Laboratory Results - last 24 hr 05/21/21 07:00: WBC 11.5 H, RBC 4.24 L, Hgb 12.4 L, Hct 37.8 L, MCV 89.2, MCH 29.2, MCHC 32.8, RDW Std Deviation 45.2 H, RDW Coeff of Jan 13.9, Plt Count 309, MPV 11.3 Micro: Microbiology 05/20/21 07:08 Sputum, Expectorated/Coughed Gram Stain - Final 05/20/21 07:08 Sputum, Expectorated/Coughed Respiratory Culture - Preliminary Appears to be normal respiratory randall. Further studies to follow. 05/18/21 09:42 Blood Culture (Wb) - Anticubital Left Blood Culture - Preliminary No growth in 48 hours. 05/18/21 08:53 Blood Culture (Wb) - Anticubital Right Blood Culture - Preliminary No growth in 48 hours. 05/18/21 08:53 Interface Orders SARS-CoV-2 Antigen (Rapid) - Final SARS-CoV-2 (COVID 19) Physical Exam Const alert, oriented x3, no apparent distress and average body habitus Constitutional Narrative: Older white male sitting up in a chair at the bedside watching television, appears comfortable, nontoxic General Appearance: cooperative Exam Limitations: no limitations HEENT normocephalic, head/scalp atraumatic and moist oral mucous membranes HEENT Narrative: No thrush Head and Scalp: normocephalic Resp normal respiratory effort, no retractions and no use of accessory muscles Resp Narrative: Few scattered rhonchi Auscultation: Negative for crackles, rales, rhonchi or wheezes Cardio regular rate, regular rhythm, S1 normal heart sound, S2 normal heart sound, no murmurs, no rub, no gallops, no clicks and no JVD Cardio Narrative: Mild tachycardia but improving slowly GI normal to inspection, nondistended, normoactive bowel sounds, soft to palpation, non-tender and non-distended; Negative for hepatosplenomegaly Extremity no clubbing, cyanosis or edema Peripheral Pulses: Yes pulses 2+ throughout Neuro oriented x3, moves all extremities and no focal motor deficits Sensorium / Orientation: awake and alert Speech: speech normal Psych Appearance: appropriate Assessment & Plan Assessment/Plan (1) Acute respiratory failure with hypoxia: (2) Pneumonia due to COVID-19 virus: (3) Aspiration pneumonia: PLAN: Acute hypoxic respiratory failure secondary to COVID-19 pneumonia -Symptoms started 05/15/2021 will need isolation until 06/04/2021 -Vaccination recommended although patient is adamant that he will not be receiving one -Continue Decadron day 4 of 10 -Continue remdesivir day 3 of 5 -Was not initiated on admission secondary to marked LIBIA which has since resolved -Patient currently on heated high flow nasal cannula at 6-7 L with oxygen saturations 91 to 95% -Continue incentive spirometer and Acapella -Encourage mobility and prone lying as able -Capri -We will consult for baricitinib if patient ends up on air Vo Aspiration pneumonia -Likely result of increased work of breathing -We will narrow antibiotics to Unasyn and complete treatment for 6 more days -Day 2 of 7 for antibiotics -Sputum culture shows normal respiratory randall Tobacco abuse -Given tobacco abuse history I suspect patient may have COPD at baseline that is undiagnosed -Nicotine patch ordered -Recommend cessation -Would benefit from outpatient PFTs after discharge DVT prophylaxis Enoxaparin 30 mg twice daily CODE STATUS -Full code Charges/Coding Visit Charges Inpatient E&M: 84175 Subs Hosp L2
--- NOTE | 2021-05-21 12:16 | NURSING ---
hypoxic with activity going from chair back to bed. recovered back to 91% in less than 5 minutes.
--- NOTE | 2021-05-21 14:01 | CHAPLAIN ---
Type of Pastoral Visit ___ Initial Visit ___ Follow-up Visit ___ On-call Visit ___ General Patient Visit ___ Spiritual Assessment ___ Family Conference ___ Bereavement ___ Rapid Response ___ Code Blue _x__ Other (describe below) Pastoral Care Referral From _x__ Patient ___ Family ___ Nurse ___ Physician ___ Ball Worker ___ Media Senior Recruiter ___ Other (describe below) Sacrament/Intervention ___ Active listening ___ Anointing ___ Mandaeism ___ Bereavement ___ Communion ___ Ina exploration ___ ___ Life review ___ Prayer ___ Reconciliation ___ Sacrament of Sick ___ Supportive presence ___ Wedding _x__ Other (describe below) Pastoral Comments phone calls into this isolation room went unanswered; unable to make contact with patient
--- NOTE | 2021-05-21 14:08 | NURSING ---
Addendum entered by Evelin Silva 05/21/21 14:11: pt took his oxygen off once he was up to bsc- unsure why he did this. spo2 84% at that time within a few minutes of resting. oxygen reapplied 15L high flow to assist with recovery. pt 96% on 15L high flow for less than 5 minutes. oxygen turned back down to 7L while sitting on bsc and spo2 92%. Original Note: when up to bsc hypoxic, oxygen turned up to 15L to assist with recovery.
[2021-05-22] VITALS (11 sets, daily range): BP systolic 111–124; BP diastolic 64–75; PULSE 60–88; RESP 18–22; TEMP 36.2–36.6; O2SAT 93–98
[2021-05-22] MEDS: BENZOCAINE/MENTHOL 1 LOZENGE MUCOUS MEM ×2 (02:40→10:33)
[2021-05-22 04:03] LABS: Hemoglobin 11.6 g/dL (13.0-16.5); Mean Corp Hgb Conc 33.1 g/dL (32-36); Mean Corpuscular Hgb 29.4 pg (27.0-32.0); Mean Corpuscular Volume 88.8 fL (80-94); Mean Platelet Vol. 10.8 fl (6.2-12.0); Platelet Count 338 K/mm3 (150-450); RBC Distribution Width CV 13.8 % (11.6-14.6); Red Blood Count 3.94 M/mm3 (4.6-6.2); White Blood Count 12.6 K/mm3 (4.4-11.0)
[2021-05-22 04:26] LABS: ALB/GLOB Ratio 0.4 RATIO (0.9-2.4); AST(SGOT) 63 U/L (15-37); Alanine Aminotransfer ALT/SGPT 36 U/L (16-61); Albumin, Serum 1.8 g/dL (3.2-5.0); Alkaline Phosphatase 117 U/L (45-117); Anion Gap 6 (5-15); BUN 26 mg/dL (7-18); BUN/Creat Ratio 32.7 RATIO (10-20); Calcium,Total 7.7 mg/dL (8.5-10.1); Chloride 112 mmol/L (98-107); Creatinine, Serum 0.79 mg/dL (0.70-1.30); EST Glomerular Filtration Rate 103 mL/min (>60); Est Glom Filt Rate - Afr Amer 125 mL/min (>60); Estimated Creatinine Clearance 70.26 ml/min; Globulin 4.2 g/dL (2.2-4.2); Glucose 127 mg/dL (74-106); Potassium 3.9 mmol/L (3.5-5.1); Sodium Level 143 mmol/L (136-145)
[2021-05-22 04:35] LABS: Vancomycin, Trough Level 4.3 ug/mL (5.0-15.0)
[2021-05-22] MEDS: Ipratropium/Albuterol Sulfate 3 ML AMPUL.NEB INHALATION ×2 (07:30→11:05)
[2021-05-22] MEDS: dexAMETHasone 4 MG Tablet 6 MG PO (08:54)
[2021-05-22] MEDS: Furosemide 40 MG/4 ML Vial IV (08:54)
[2021-05-22] MEDS: 0.9% Saline Lock 10 ML Syringe IV (08:54)
[2021-05-22] MEDS: Enoxaparin 30 MG/0.3 ML Syringe SC ×2 (08:55→22:56)
[2021-05-22] MEDS: guaiFENesin 1,200 MG Tablet 1200 MG PO ×2 (08:55→22:56)
--- NOTE | 2021-05-22 14:02 | PN.HOSP_ITS ---
Subjective Subjective Patient reports his breathing is about the same but overall much better than it was on admission. He states he is still coughing up sputum. He is currently on 7 L nasal cannula with a sat of 94 to 97%. He was assessed yesterday afternoon for oxygen needs and was found to be 84% on room air. Upon ambulation was 7 L his oxygen saturation drops to 74%. Objective Data Objective Data Vital Signs: Vital Signs Temp Pulse Resp BP Pulse Ox 97.8 F 76 18 117/68 93 05/22/21 13:06 05/22/21 13:06 05/22/21 13:06 05/22/21 13:06 05/22/21 13:08 Oxygen Flow Rate (L/min) [At 15 REST with Oxygen] Oxygen Flow Rate (L/min) [ 7 AMBULATING with Oxygen #1] Oxygen Flow Rate (L/min) 6 Oxygen Delivery Method High Flow Weight: 71 kg Body Mass Index (BMI) 21.9 Intake & Output: Intake and Output for Last 24 Hours 05/20/21 05/21/21 05/22/21 23:59 23:59 23:59 Intake Total 1100 / 1100 1451.25 / 1451.25 1412 / 1412 Output Total 500 / 500 Balance 600 / 600 1451.25 / 1451.25 1412 / 1412 Lab / Micro Data Result Diagrams: 05/22/21 03:50 05/22/21 03:50 Labs: Laboratory Results - last 24 hr 05/22/21 03:50: WBC 12.6 H, RBC 3.94 L, Hgb 11.6 L, Hct 35.0 L, MCV 88.8, MCH 29.4, MCHC 33.1, RDW Std Deviation 45.0 H, RDW Coeff of Jan 13.8, Plt Count 338, MPV 10.8 05/22/21 03:50: Vancomycin Trough 4.3 L 05/22/21 03:50: Sodium 143, Potassium 3.9, Chloride 112 H, Carbon Dioxide 25.0, Anion Gap 6, BUN 26 H, Creatinine 0.79, Estim Creat Clear Calc 70.26, Est GFR (MDRD) Af Amer 125, Est GFR (MDRD) Non-Af 103, BUN/Creatinine Ratio 32.7 H, Glucose 127 H, Calcium 7.7 L, Total Bilirubin 1.00, AST 63 H, ALT 36, Alkaline Phosphatase 117, Total Protein 6.0 L, Albumin 1.8 L, Globulin 4.2, Albumin/Globulin Ratio 0.4 L Micro: Microbiology 05/20/21 07:08 Sputum, Expectorated/Coughed Gram Stain - Final 05/20/21 07:08 Sputum, Expectorated/Coughed Respiratory Culture - Final 05/18/21 09:42 Blood Culture (Wb) - Anticubital Left Blood Culture - Preliminary No growth in 48 hours. 05/18/21 08:53 Blood Culture (Wb) - Anticubital Right Blood Culture - Pr eliminary No growth in 48 hours. 05/18/21 08:53 Interface Orders SARS-CoV-2 Antigen (Rapid) - Final SARS-CoV-2 (COVID 19) Physical Exam Const alert, oriented x3, no apparent distress and average body habitus General Appearance: cooperative Exam Limitations: no limitations HEENT normocephalic, head/scalp atraumatic and moist oral mucous membranes HEENT Narrative: No thrush, dentition is fair, Mallampati is 2 Head and Scalp: normocephalic Resp normal respiratory effort, no retractions, no use of accessory muscles and clear to auscultation bilaterally Resp Narrative: Diminished but clear Auscultation: Negative for crackles, rales, rhonchi or wheezes Cardio regular rate, regular rhythm, S1 normal heart sound, S2 normal heart sound, no murmurs, no rub, no gallops, no clicks and no JVD GI normal to inspection, nondistended, normoactive bowel sounds, soft to palpation, non-tender and non-distended; Negative for hepatosplenomegaly Extremity no clubbing, cyanosis or edema Peripheral Pulses: Yes pulses 2+ throughout Neuro oriented x3, moves all extremities and no focal motor deficits Sensorium / Orientation: awake and alert Psych Appearance: appropriate Assessment & Plan Assessment/Plan (1) Acute respiratory failure with hypoxia: (2) Pneumonia due to COVID-19 virus: (3) Aspiration pneumonia: PLAN: Acute hypoxic respiratory failure secondary to COVID-19 pneumonia -Symptoms started 05/15/2021 will need isolation until 06/04/2021 -Vaccination recommended although patient is adamant that he will not be receiving one -Continue Decadron day 5 of 10 -Continue remdesivir day 4 of 5 -Was not initiated on admission secondary to marked LIBIA which has since resolved -Patient currently on heated high flow nasal cannula at 7 L with oxygen saturations 94 to 97% -Wean oxygen as able -Continue incentive spirometer and Acapella -Encourage mobility and prone lying as able -DuoNebs -Lasix 40 mg IV push again today -Consult for baricitinib if oxygen demands dramatically worsen Aspiration pneumonia -Likely result of increased work of breathing -Continue antibiotics but convert to Augmentin -Day 3 of 7 for antibiotics -Sputum culture shows normal respiratory randall Tobacco abuse -Given tobacco abuse history I suspect patient may have COPD at baseline that is undiagnosed -Nicotine patch ordered -Recommend cessation -Would benefit from outpatient PFTs after discharge DVT prophylaxis Enoxaparin 30 mg twice daily CODE STATUS -Full code Charges/Coding Visit Charges Inpatient E&M: 86077 Subs Hosp L2
[2021-05-22] MEDS: Amox/Clavulanate 875 MG Tablet PO (15:59)
[2021-05-23] VITALS (13 sets, daily range): BP systolic 109–115; BP diastolic 62–74; PULSE 66–90; RESP 18–28; TEMP 36.1–36.9; O2SAT 91–97
[2021-05-23] MEDS: BENZOCAINE/MENTHOL 1 LOZENGE MUCOUS MEM ×2 (04:40→16:52)
[2021-05-23 07:31] LABS: Hematocrit 34.6 % (40-54); Hemoglobin 11.4 g/dL (13.0-16.5); Mean Corp Hgb Conc 32.9 g/dL (32-36); Mean Corpuscular Hgb 29.8 pg (27.0-32.0); Mean Corpuscular Volume 90.6 fL (80-94); Mean Platelet Vol. 10.9 fl (6.2-12.0); Platelet Count 347 K/mm3 (150-450); RBC Distribution Width CV 13.8 % (11.6-14.6); RBC Distribution Width SD 45.3 fl (35.1-43.9); Red Blood Count 3.82 M/mm3 (4.6-6.2); White Blood Count 10.6 K/mm3 (4.4-11.0)
[2021-05-23] MEDS: Ipratropium/Albuterol Sulfate 3 ML AMPUL.NEB INHALATION ×4 (07:46→19:56)
[2021-05-23 08:02] LABS: ALB/GLOB Ratio 0.4 RATIO (0.9-2.4); AST(SGOT) 122 U/L (15-37); Alanine Aminotransfer ALT/SGPT 78 U/L (16-61); Albumin, Serum 1.7 g/dL (3.2-5.0); Alkaline Phosphatase 152 U/L (45-117); Anion Gap 4 (5-15); BUN 29 mg/dL (7-18); BUN/Creat Ratio 32.9 RATIO (10-20); Calcium,Total 7.8 mg/dL (8.5-10.1); Chloride 111 mmol/L (98-107); Creatinine, Serum 0.88 mg/dL (0.70-1.30); EST Glomerular Filtration Rate 91 mL/min (>60); Est Glom Filt Rate - Afr Amer 111 mL/min (>60); Estimated Creatinine Clearance 78.69 ml/min; Globulin 4.1 g/dL (2.2-4.2); Glucose 89 mg/dL (74-106); Potassium 4.3 mmol/L (3.5-5.1); Protein, Total 5.8 g/dL (6.4-8.2); Sodium Level 143 mmol/L (136-145)
[2021-05-23] MEDS: Amox/Clavulanate 875 MG Tablet PO ×2 (08:29→16:51)
[2021-05-23] MEDS: Enoxaparin 30 MG/0.3 ML Syringe SC ×2 (10:18→20:18)
[2021-05-23] MEDS: dexAMETHasone 4 MG Tablet 6 MG PO (10:18)
[2021-05-23] MEDS: guaiFENesin 1,200 MG Tablet 1200 MG PO ×2 (10:19→20:18)
[2021-05-23] MEDS: 0.9% Saline Lock 10 ML Syringe IV (16:51)
--- NOTE | 2021-05-23 17:27 | PCM.PN.HOSP ---
Subjective Subjective Patient was seen and examined today, he is currently on 3 L via nasal cannula, he appears comfortable. Patient completed remdesivir today. He remains on Augmentin for suspected aspiration pneumonia. Patient's white blood cell count today was normal at 10.6. Objective Data Objective Data Vital Signs: Vital Signs Temp Pulse Resp BP Pulse Ox 98.1 F 83 18 112/62 95 05/23/21 16:38 05/23/21 16:38 05/23/21 16:38 05/23/21 16:38 05/23/21 16:38 Oxygen Flow Rate (L/min) [At 15 REST with Oxygen] Oxygen Flow Rate (L/min) [ 7 AMBULATING with Oxygen #1] Oxygen Flow Rate (L/min) 3 Oxygen Delivery Method Nasal Cannula Weight: 68.3 kg Body Mass Index (BMI) 21.9 Intake & Output: Intake and Output for Last 24 Hours 05/21/21 05/22/21 05/23/21 23:59 23:59 23:59 Intake Total 1451.25 / 1451.25 2623.75 / 2923.75 1800 / 1800 Output Total 500 / 500 400 / 400 Balance 1451.25 / 1451.25 2123.75 / 2423.75 1400 / 1400 Lab / Micro Data Result Diagrams: 05/23/21 06:05 05/23/21 06:05 Labs: Laboratory Results - last 24 hr 05/23/21 06:05: WBC 10.6, RBC 3.82 L, Hgb 11.4 L, Hct 34.6 L, MCV 90.6, MCH 29.8, MCHC 32.9, RDW Std Deviation 45.3 H, RDW Coeff of Jan 13.8, Plt Count 347, MPV 10.9 05/23/21 06:05: Sodium 143, Potassium 4.3, Chloride 111 H, Carbon Dioxide 28.0, Anion Gap 4 L, BUN 29 H, Creatinine 0.88, Estim Creat Clear Calc 78.69, Est GFR (MDRD) Af Amer 111, Est GFR (MDRD) Non-Af 91, BUN/Creatinine Ratio 32.9 H, Glucose 89, Calcium 7.8 L, Total Bilirubin 0.80, AST 122 H, ALT 78 H, Alkaline Phosphatase 152 H, Total Protein 5.8 L, Albumin 1.7 L, Globulin 4.1, Albumin/Globulin Ratio 0.4 L Micro: Microbiology 05/18/21 09:42 Blood Culture (Wb) - Anticubital Left Blood Culture - Final No growth in 5 days. 05/18/21 08:53 Blood Culture (Wb) - Anticubital Right Blood Culture - Final No growth in 5 days. 05/20/21 07:08 Sputum, Expectorated/Coughed Gram Stain - Final 05/20/21 07:08 Sputum, Expectorated/Coughed Respiratory Culture - Final 05/18/21 08:53 Interface Orders SARS-CoV-2 Antigen (Rapid) - Final SARS-CoV-2 (COVID 19) Physical Exam Const alert, oriented x3, no apparent distress and average body habitus Constitutional Narrative: Patient appears older than his stated age General Appearance: cooperative, well kempt and well developed Orientation / Consciousness: awake, oriented to person, oriented to place and oriented to time HEENT normocephalic, head/scalp atraumatic and moist oral mucous membranes Head and Scalp: normocephalic Eyes PERRL, EOMs intact bilaterally and conjunctivae normal Neck nuchal rigidity, supple, no JVD, thyroid normal and no carotid bruits General: trachea midline Resp normal respiratory effort and clear to auscultation bilaterally Auscultation: Negative for rales, rhonchi or wheezes Cardio regular rate, regular rhythm, no murmurs, no rub and no gallops GI normal to inspection, nondistended, normoactive bowel sounds, soft to palpation, non-tender and non-distended Extremity no clubbing, cyanosis or edema Skin no rashes or lesions noted General Skin Exam: no breakdown Neuro oriented x3, CN's II-XII intact bilaterally, no focal motor deficits and no sensory deficits noted Sensorium / Orientation: awake and alert Speech: speech normal Psych thought process normal and affect normal Assessment & Plan Assessment/Plan (1) Pneumonia due to COVID-19 virus: PLAN: 1. COVID-19 pneumonia-patient will remain on dexamethasone, he finished remdesivir #2 acute hypoxic respiratory failure secondary to COVID-19 pneumonia and possible aspiration pneumonia-oxygen will be weaned if possible #3 possible bacterial pneumonia-patient's sputum culture showed mixed normal respiratory randall, no Haemophilus, and Streptococcus, or staph was isolated. I have elected to continue the patient's antibiotics for a total of 7 days-he currently is on Augmentin. #4 acute kidney injury-resolved at this time I do not believe the patient had aspiration pneumonia. Charges/Coding Visit Charges Inpatient E&M: 15606 Subs Hosp L2
[2021-05-24] VITALS (14 sets, daily range): BP systolic 94–132; BP diastolic 53–79; PULSE 71–89; RESP 18–20; TEMP 36.3–36.6; O2SAT 89–96
[2021-05-24] MEDS: BENZOCAINE/MENTHOL 1 LOZENGE MUCOUS MEM ×3 (02:02→23:33)
[2021-05-24] MEDS: Ipratropium/Albuterol Sulfate 3 ML AMPUL.NEB INHALATION (07:24)
[2021-05-24 07:36] LABS: Hematocrit 36.9 % (40-54); Hemoglobin 12.4 g/dL (13.0-16.5); Mean Corp Hgb Conc 33.6 g/dL (32-36); Mean Corpuscular Volume 89.1 fL (80-94); Mean Platelet Vol. 10.8 fl (6.2-12.0); Platelet Count 393 K/mm3 (150-450); RBC Distribution Width CV 13.5 % (11.6-14.6); RBC Distribution Width SD 44.2 fl (35.1-43.9); Red Blood Count 4.14 M/mm3 (4.6-6.2); White Blood Count 10.6 K/mm3 (4.4-11.0)
[2021-05-24 08:17] LABS: ALB/GLOB Ratio 0.5 RATIO (0.9-2.4); AST(SGOT) 66 U/L (15-37); Alanine Aminotransfer ALT/SGPT 72 U/L (16-61); Alkaline Phosphatase 115 U/L (45-117); Anion Gap 6 (5-15); BUN 22 mg/dL (7-18); BUN/Creat Ratio 27.8 RATIO (10-20); Calcium,Total 7.9 mg/dL (8.5-10.1); Chloride 110 mmol/L (98-107); Creatinine, Serum 0.79 mg/dL (0.70-1.30); EST Glomerular Filtration Rate 104 mL/min (>60); Est Glom Filt Rate - Afr Amer 126 mL/min (>60); Estimated Creatinine Clearance 68.74 ml/min; Globulin 4.4 g/dL (2.2-4.2); Glucose 74 mg/dL (74-106); Potassium 4.4 mmol/L (3.5-5.1); Protein, Total 6.4 g/dL (6.4-8.2); Sodium Level 141 mmol/L (136-145)
[2021-05-24] MEDS: dexAMETHasone 4 MG Tablet 6 MG PO (08:46)
[2021-05-24] MEDS: Amox/Clavulanate 875 MG Tablet PO ×2 (08:46→17:07)
[2021-05-24] MEDS: guaiFENesin 1,200 MG Tablet 1200 MG PO ×2 (08:46→21:24)
[2021-05-24] MEDS: Enoxaparin 30 MG/0.3 ML Syringe SC ×2 (08:46→21:24)
--- NOTE | 2021-05-24 17:46 | PCM.PN.HOSP ---
Subjective Subjective Patient was seen and examined today, he is not short of breath at rest, patient complains of no fevers or chills. Objective Data Objective Data Vital Signs: Vital Signs Temp Pulse Resp BP Pulse Ox 97.5 F L 78 18 94/53 L 93 05/24/21 15:24 05/24/21 15:24 05/24/21 15:24 05/24/21 15:24 05/24/21 15:27 Oxygen Flow Rate (L/min) [At 15 REST with Oxygen] Oxygen Flow Rate (L/min) [ 7 AMBULATING with Oxygen #1] Oxygen Flow Rate (L/min) 5 Oxygen Delivery Method Nasal Cannula Weight: 67.8 kg Body Mass Index (BMI) 21.9 Intake & Output: Intake and Output for Last 24 Hours 05/22/21 05/23/21 05/24/21 23:59 23:59 23:59 Intake Total 2623.75 / 2923.75 2300 / 2800 1650 / 1650 Output Total 500 / 500 400 / 400 Balance 2123.75 / 2423.75 1900 / 2400 1650 / 1650 Lab / Micro Data Result Diagrams: 05/24/21 06:45 05/24/21 06:45 Labs: Laboratory Results - last 24 hr 05/24/21 06:45: WBC 10.6, RBC 4.14 L, Hgb 12.4 L, Hct 36.9 L, MCV 89.1, MCH 30.0, MCHC 33.6, RDW Std Deviation 44.2 H, RDW Coeff of Jan 13.5, Plt Count 393, MPV 10.8 05/24/21 06:45: Sodium 141, Potassium 4.4, Chloride 110 H, Carbon Dioxide 25.0, Anion Gap 6, BUN 22 H, Creatinine 0.79, Estim Creat Clear Calc 68.74, Est GFR (MDRD) Af Amer 126, Est GFR (MDRD) Non-Af 104, BUN/Creatinine Ratio 27.8 H, Glucose 74, Calcium 7.9 L, Total Bilirubin 0.90, AST 66 H, ALT 72 H, Alkaline Phosphatase 115, Total Protein 6.4, Albumin 2.0 L, Globulin 4.4 H, Albumin/Globulin Ratio 0.5 L Micro: Microbiology 05/18/21 09:42 Blood Culture (Wb) - Anticubital Left Blood Culture - Final No growth in 5 days. 05/18/21 08:53 Blood Culture (Wb) - Anticubital Right Blood Culture - Final No growth in 5 days. 05/20/21 07:08 Sputum, Expectorated/Coughed Gram Stain - Final 05/20/21 07:08 Sputum, Expectorated/Coughed Respiratory Culture - Final 05/18/21 08:53 Interface Orders SARS-CoV-2 Antigen (Rapid) - Final SARS-CoV-2 (COVID 19) Physical Exam Narrative alert, oriented x3, no apparent distress and average body habitus Constitutional Narrative: Patient appears older than his stated age General Appearance: cooperative, well kempt and well developed Orientation / Consciousness: awake, oriented to person, oriented to place and oriented to time HEENT normocephalic, head/scalp atraumatic and moist oral mucous membranes Head and Scalp: normocephalic Eyes PERRL, EOMs intact bilaterally and conjunctivae normal Neck nuchal rigidity, supple, no JVD, thyroid normal and no carotid bruits General: trachea midline Resp normal respiratory effort and clear to auscultation bilaterally Auscultation: Negative for rales, rhonchi or wheezes Cardio regular rate, regular rhythm, no murmurs, no rub and no gallops GI normal to inspection, nondistended, normoactive bowel sounds, soft to palpation, non-tender and non-distended Extremity no clubbing, cyanosis or edema Skin no rashes or lesions noted General Skin Exam: no breakdown Neuro oriented x3, CN's II-XII intact bilaterally, no focal motor deficits and no sensory deficits noted Sensorium / Orientation: awake and alert Speech: speech normal Psych thought process normal and affect normal Assessment & Plan Assessment/Plan (1) Pneumonia due to COVID-19 virus: PLAN: 1. COVID-19 pneumonia-patient will remain on dexamethasone, he finished remdesivir #2 acute hypoxic respiratory failure secondary to COVID-19 pneumonia and possible pneumonia-oxygen will be weaned if possible #3 possible bacterial pneumonia-patient's sputum culture showed mixed normal respiratory randall, no Haemophilus, and Streptococcus, or staph was isolated. I have recommended the patient receive a total of 7 days of antibiotics, patient is currently on Augmentin, this will need to continue through 05/26/2021. #4 acute kidney injury-resolved at this time I do not believe the patient had aspiration pneumonia. Charges/Coding Visit Charges Inpatient E&M: 57801 Subs Hosp L2
[2021-05-25] VITALS (8 sets, daily range): BP systolic 98–115; BP diastolic 55–68; PULSE 73–91; RESP 18–20; TEMP 35.9–36.2; O2SAT 91–96
[2021-05-25] MEDS: Amox/Clavulanate 875 MG Tablet PO ×2 (08:32→16:39)
[2021-05-25] MEDS: Enoxaparin 30 MG/0.3 ML Syringe SC ×2 (08:33→21:19)
[2021-05-25] MEDS: dexAMETHasone 4 MG Tablet 6 MG PO (08:33)
[2021-05-25] MEDS: guaiFENesin 1,200 MG Tablet 1200 MG PO ×2 (08:33→21:19)
--- NOTE | 2021-05-25 13:51 | PN.HOSP_ITS ---
Subjective Subjective Patient seen and examined. He is on 6 L of oxygen and has no complaints. He feels his breathing is the same and review of systems otherwise negative. Patient insisted on being discharged home. I explained to him that he was in too much oxygen to be discharged home as he does not even wear oxygen at home and so he is not yet ready to be discharged. Patient insisted on being discharged and I explained to him that the only option would be for him to sign out AGAINST MEDICAL ADVICE because I could not discharge him he was not clinically ready. Objective Data Objective Data Vital Signs: Vital Signs Temp Pulse Resp BP Pulse Ox 97.2 F L 84 18 105/55 L 94 05/25/21 11:51 05/25/21 11:51 05/25/21 11:51 05/25/21 11:51 05/25/21 11:52 Oxygen Flow Rate (L/min) [At 15 REST with Oxygen] Oxygen Flow Rate (L/min) [ 7 AMBULATING with Oxygen #1] Oxygen Flow Rate (L/min) 5 Oxygen Delivery Method High Flow Weight: 146 lb 9.718 oz Body Mass Index (BMI) 21.9 Intake & Output: Intake and Output for Last 24 Hours 05/23/21 05/24/21 05/25/21 23:59 23:59 23:59 Intake Total 2300 / 2800 1890 / 1890 Output Total 400 / 400 300 / 300 Balance 1900 / 2400 1590 / 1590 Medical Nutrition Assessment Dietitian: Malnutrition Criteria Met Start: 05/25/21 10:17 Freq: Status: Active Protocol: Document 05/25/21 10:17 (Rec: 05/25/21 10:17 [id number]) Nutrition Malnutrition Evidence of Malnutrition Exists Yes Malnutrition (severe): Acute Illness/Injury Evidenced By Suboptimal Energy Intake ( Severe),Weight Loss (Severe) Intake Problem Inadequate Oral Intake Etiology related to fluctuating appetite w/ acute illness Signs/Symptoms as evidenced by estimated PO intake meeting <50% of estimated energy needs Status Active Problem Clinical Problem Acute Disease or Injury Related Malnutrition Etiology severe, acute malnutrition r/t inadequate energy intake w/ acute illness Signs/Symptoms as evidenced by unintentional wt loss of 3.9kg/5.5% x6 days, estimated PO intake meeting < 50% of estimated energy needs x 1 week Status Active Problem Recommendation Dietitian Recommendations/Changes Continue regular diet as ordered. Will add 120mL ensure compact w/ meals for additional calories/protein if consumed. Lab / Micro Data Result Diagrams: 05/24/21 06:45 05/24/21 06:45 Micro: Microbiology 05/18/21 09:42 Blood Culture (Wb) - Anticubital Left Blood Culture - Final No growth in 5 days. 05/18/21 08:53 Blood Culture (Wb) - Anticubital Right Blood Culture - Final No growth in 5 days. 05/20/21 07:08 Sputum, Expectorated/Coughed Gram Stain - Final 05/20/21 07:08 Sputum, Expectorated/Coughed Respiratory Culture - Final 05/18/21 08:53 Interface Orders SARS-CoV-2 Antigen (Rapid) - Final SARS-CoV-2 (COVID 19) Physical Exam Const alert, oriented x3 and no apparent distress Exam Limitations: no limitations HEENT head/scalp atraumatic, moist oral mucous membranes and oropharynx normal Head and Scalp: normocephalic Eyes PERRL, EOMs intact bilaterally and conjunctivae normal Neck no lymphadenopathy Resp Resp Narrative: diminished breath sounds bibasally, no wheezes, no crackles. on 6L of oxygen at time of review. Cardio regular rate, S1 normal heart sound, S2 normal heart sound and no murmurs GI normal to inspection, nondistended, normoactive bowel sounds, soft to palpation, non-tender and non-distended Extremity normal to inspection, full ROM and no clubbing, cyanosis or edema Peripheral Pulses: Yes pulses 2+ throughout Skin no rashes or lesions noted Neuro oriented x3, CN's II-XII intact bilaterally and moves all extremities Sensorium / Orientation: awake Psych Mood & Affect: anxious Assessment & Plan Assessment/Plan (1) Acute respiratory failure with hypoxia: (2) Pneumonia due to COVID-19 virus: PLAN: #Acute hypoxic respiratory failure due to covid 19 pneumona * on dexamethasone. Has finished a course of remdesivir * titrate oxygen to maintain sats >90% * now on 6L of oxygen * currently on augmentin due to concerns for pneumonia. to stop oral antibiotic tomorrow * diurese as needed to maintain euvolemic status * #Momo: resolved. DVT prophylaxis: lovenox Charges/Coding Visit Charges Inpatient E&M: 10941 Subs Hosp L2
[2021-05-26] VITALS (10 sets, daily range): BP systolic 92–121; BP diastolic 58–72; PULSE 60–98; RESP 16–20; TEMP 36.2–36.4; O2SAT 93–96
[2021-05-26 07:15] LABS: Absolute Neutrophil Count 10.9 X10^3/uL (2.0-7.7); Basophil# 0.03 X10^3/uL; Basophil% 0.2 % (0-1); Eosinophil# 0.13 X10^3/uL; Hematocrit 38.8 % (40-54); Lymphocyte % 11.8 % (19-41); Mean Corp Hgb Conc 33.5 g/dL (32-36); Mean Corpuscular Hgb 30.2 pg (27.0-32.0); Mean Corpuscular Volume 90.2 fL (80-94); Mean Platelet Vol. 10.8 fl (6.2-12.0); Monocyte# 0.64 X10^3/uL; Monocyte% 4.7 % (0-10); NRBC Flagged by Analyzer 0 % (0-5); Neutrophil # 10.92 X10^3/uL (2.7-7.7); Neutrophil % 80.3 % (47-70); Platelet Count 393 K/mm3 (150-450); RBC Distribution Width CV 13.2 % (11.6-14.6); RBC Distribution Width SD 43.7 fl (35.1-43.9); White Blood Count 13.6 K/mm3 (4.4-11.0)
[2021-05-26 07:51] LABS: ALB/GLOB Ratio 0.5 RATIO (0.9-2.4); AST(SGOT) 41 U/L (15-37); Alanine Aminotransfer ALT/SGPT 64 U/L (16-61); Alkaline Phosphatase 92 U/L (45-117); Anion Gap 5 (5-15); BUN 25 mg/dL (7-18); Calcium,Total 8.6 mg/dL (8.5-10.1); Chloride 112 mmol/L (98-107); Creatinine, Serum 0.72 mg/dL (0.70-1.30); EST Glomerular Filtration Rate 116 mL/min (>60); Est Glom Filt Rate - Afr Amer 141 mL/min (>60); Estimated Creatinine Clearance 66.51 ml/min; Globulin 4.3 g/dL (2.2-4.2); Glucose 86 mg/dL (74-106); Potassium 4.1 mmol/L (3.5-5.1); Protein, Total 6.3 g/dL (6.4-8.2); Sodium Level 140 mmol/L (136-145)
[2021-05-26] MEDS: dexAMETHasone 4 MG Tablet 6 MG PO (08:47)
[2021-05-26] MEDS: Enoxaparin 30 MG/0.3 ML Syringe SC ×2 (08:48→22:43)
[2021-05-26] MEDS: guaiFENesin 1,200 MG Tablet 1200 MG PO ×2 (08:48→22:43)
[2021-05-26] MEDS: Amox/Clavulanate 875 MG Tablet PO ×2 (08:48→16:16)
--- NOTE | 2021-05-26 11:20 | PN.HOSP_ITS ---
Subjective Subjective Patient seen and examined. He had no active complaints today. He was on 5 L of oxygen. He was saturating between 88 and 89% on the 5 L of oxygen. Review systems otherwise negative. Objective Data Objective Data Vital Signs: Vital Signs Temp Pulse Resp BP Pulse Ox 97.5 F L 90 16 104/63 93 05/26/21 08:49 05/26/21 08:49 05/26/21 08:49 05/26/21 08:49 05/26/21 08:49 Oxygen Flow Rate (L/min) [At 15 REST with Oxygen] Oxygen Flow Rate (L/min) [ 7 AMBULATING with Oxygen #1] Oxygen Flow Rate (L/min) 5 Oxygen Delivery Method High Flow Weight: 144 lb 9.972 oz Body Mass Index (BMI) 21.9 Intake & Output: Intake and Output for Last 24 Hours 05/24/21 05/25/21 05/26/21 23:59 23:59 23:59 Intake Total 1890 / 1890 150 / 550 650 / 650 Output Total 300 / 300 Balance 1590 / 1590 150 / 550 650 / 650 Medical Nutrition Assessment Dietitian: Malnutrition Criteria Met Start: 05/25/21 10:17 Freq: Status: Active Protocol: Document 05/25/21 10:17 (Rec: 05/25/21 10:17 [id number]) Nutrition Malnutrition Evidence of Malnutrition Exists Yes Malnutrition (severe): Acute Illness/Injury Evidenced By Suboptimal Energy Intake ( Severe),Weight Loss (Severe) Intake Problem Inadequate Oral Intake Etiology related to fluctuating appetite w/ acute illness Signs/Symptoms as evidenced by estimated PO intake meeting <50% of estimated energy needs Status Active Problem Clinical Problem Acute Disease or Injury Related Malnutrition Etiology severe, acute malnutrition r/t inadequate energy intake w/ acute illness Signs/Symptoms as evidenced by unintentional wt loss of 3.9kg/5.5% x6 days, estimated PO intake meeting < 50% of estimated energy needs x 1 week Status Active Problem Recommendation Dietitian Recommendations/Changes Continue regular diet as ordered. Will add 120mL ensure compact w/ meals for additional calories/protein if consumed. Lab / Micro Data Result Diagrams: 05/26/21 06:34 05/26/21 06:34 Labs: Laboratory Results - last 24 hr 05/26/21 06:34: WBC 13.6 H, RBC 4.30 L, Hgb 13.0, Hct 38.8 L, MCV 90.2, MCH 30.2, MCHC 33.5, RDW Std Deviation 43.7, RDW Coeff of Jan 13.2, Plt Count 393, MPV 10.8, Immature Gran % (Auto) 2.000 H, Neut % (Auto) 80.3 H, Lymph % (Auto) 11.8 L, [place] % (Auto) 4.7, Eos % (Auto) 1.0, Baso % (Auto) 0.2, Absolute Neuts (auto) 10.9 H, Absolute Lymphs (auto) 1.60, Nucleated RBC % 0 05/26/21 06:34: Sodium 140, Potassium 4.1, Chloride 112 H, Carbon Dioxide 23.0, Anion Gap 5, BUN 25 H, Creatinine 0.72, Estim Creat Clear Calc 66.51, Est GFR (MDRD) Af Amer 141, Est GFR (MDRD) Non-Af 116, BUN/Creatinine Ratio 35.0 H, Glucose 86, Calcium 8.6, Total Bilirubin 0.90, AST 41 H, ALT 64 H, Alkaline Phosphatase 92, Total Protein 6.3 L, Albumin 2.0 L, Globulin 4.3 H, Albumin/Globulin Ratio 0.5 L Micro: Microbiology 05/18/21 09:42 Blood Culture (Wb) - Anticubital Left Blood Culture - Final No growth in 5 days. 05/18/21 08:53 Blood Culture (Wb) - Anticubital Right Blood Culture - Final No growth in 5 days. 05/20/21 07:08 Sputum, Expectorated/Coughed Gram Stain - Final 05/20/21 07:08 Sputum, Expectorated/Coughed Respiratory Culture - Final 05/18/21 08:53 Interface Orders SARS-CoV-2 Antigen (Rapid) - Final SARS-CoV-2 (COVID 19) Physical Exam Const alert, oriented x3 and no apparent distress General Appearance: cooperative and well developed Orientation / Consciousness: awake, oriented to person, oriented to place and oriented to time Exam Limitations: no limitations HEENT normocephalic, head/scalp atraumatic, moist oral mucous membranes and oropharynx normal Head and Scalp: normocephalic Eyes PERRL, EOMs intact bilaterally and conjunctivae normal Neck no lymphadenopathy and no JVD Resp normal respiratory effort and no retractions Resp Narrative: diminished breath sounds bibasally, no wheezes, no crackles. on 5L of oxygen at time of review. Cardio regular rate, regular rhythm, S1 normal heart sound, S2 normal heart sound and no murmurs GI normal to inspection, nondistended, normoactive bowel sounds, soft to palpation, non-tender and non-distended; Negative for hepatosplenomegaly Extremity normal to inspection, full ROM and no clubbing, cyanosis or edema Peripheral Pulses: Yes pulses 2+ throughout Skin no rashes or lesions noted General Skin Exam: no breakdown Neuro oriented x3, CN's II-XII intact bilaterally, moves all extremities and no focal motor deficits Sensorium / Orientation: awake and alert Speech: speech normal Psych thought process normal and affect normal Appearance: appropriate Assessment & Plan Assessment/Plan (1) Acute respiratory failure with hypoxia: (2) Pneumonia due to COVID-19 virus: PLAN: #Acute hypoxic respiratory failure due to covid 19 pneumona * on dexamethasone. Has finished a course of remdesivir * titrate oxygen to maintain sats >90% * now on 5L of oxygen * finish course of augmentin today. * diurese as needed to maintain euvolemic status DVT prophylaxis: lovenox Charges/Coding Visit Charges Inpatient E&M: 46354 Subs Hosp L2
[2021-05-26] MEDS: 0.9% Saline Lock 10 ML Syringe IV (22:45)
[2021-05-27] VITALS (17 sets, daily range): BP systolic 102–120; BP diastolic 64–71; PULSE 61–98; RESP 16–20; TEMP 35.6–36.6; O2SAT 84–99
[2021-05-27 07:20] LABS: Absolute Lymphocyte Count 1.77 X10^3/uL (0.83-4.51); Absolute Neutrophil Count 10.4 X10^3/uL (2.0-7.7); Basophil# 0.03 X10^3/uL; Basophil% 0.2 % (0-1); Eosinophil# 0.14 X10^3/uL; Eosinophils% 1.1 % (0-5); Hematocrit 38.7 % (40-54); Lymphocyte # 1.77 X10^3/ul (0.83-4.51); Lymphocyte % 13.3 % (19-41); Mean Corp Hgb Conc 33.6 g/dL (32-36); Mean Corpuscular Hgb 30.2 pg (27.0-32.0); Mean Platelet Vol. 10.7 fl (6.2-12.0); Monocyte# 0.61 X10^3/uL; Monocyte% 4.6 % (0-10); NRBC Flagged by Analyzer 0 % (0-5); Neutrophil # 10.42 X10^3/uL (2.7-7.7); Neutrophil % 78.5 % (47-70); Platelet Count 384 K/mm3 (150-450); RBC Distribution Width CV 13.1 % (11.6-14.6); RBC Distribution Width SD 42.7 fl (35.1-43.9); White Blood Count 13.3 K/mm3 (4.4-11.0)
[2021-05-27 07:50] LABS: ALB/GLOB Ratio 0.5 RATIO (0.9-2.4); AST(SGOT) 31 U/L (15-37); Alanine Aminotransfer ALT/SGPT 61 U/L (16-61); Alkaline Phosphatase 82 U/L (45-117); Anion Gap 7 (5-15); BUN 25 mg/dL (7-18); BUN/Creat Ratio 35.4 RATIO (10-20); Calcium,Total 8.5 mg/dL (8.5-10.1); Chloride 109 mmol/L (98-107); Creatinine, Serum 0.71 mg/dL (0.70-1.30); EST Glomerular Filtration Rate 118 mL/min (>60); Est Glom Filt Rate - Afr Amer 143 mL/min (>60); Estimated Creatinine Clearance 66.71 ml/min; Globulin 4.4 g/dL (2.2-4.2); Glucose 78 mg/dL (74-106); Potassium 3.9 mmol/L (3.5-5.1); Protein, Total 6.4 g/dL (6.4-8.2); Sodium Level 139 mmol/L (136-145)
[2021-05-27] MEDS: dexAMETHasone 4 MG Tablet 6 MG PO (09:18)
[2021-05-27] MEDS: guaiFENesin 1,200 MG Tablet 1200 MG PO ×2 (09:19→23:03)
[2021-05-27] MEDS: Enoxaparin 30 MG/0.3 ML Syringe SC ×2 (09:19→23:03)
--- NOTE | 2021-05-27 15:00 | PN.HOSP_ITS ---
Subjective Subjective Patient seen and examined. He has no complaints and says he is feeling better. Review of systems otherwise negative. I was hopeful about discharging patient today but with his walking pulse ox, he required up to 6 L of oxygen. I therefore think it is prudent to keep patient 1 more day to optimize him a bit more. He has otherwise remained hemodynamically stable. Objective Data Objective Data Vital Signs: Vital Signs Temp Pulse Resp BP Pulse Ox 97.1 F L 96 20 H 102/65 92 05/27/21 12:22 05/27/21 12:22 05/27/21 12:22 05/27/21 12:05/27/21 12:22 Oxygen Flow Rate (L/min) [ 6 AMBULATING with Oxygen #3] Oxygen Flow Rate (L/min) [ 5 AMBULATING with Oxygen #2] Oxygen Flow Rate (L/min) [At 4 REST with Oxygen] Oxygen Flow Rate (L/min) [ 4 AMBULATING with Oxygen #1] Oxygen Flow Rate (L/min) 5 Oxygen Delivery Method Nasal Cannula Weight: 145 lb 1.027 oz Body Mass Index (BMI) 21.9 Intake & Output: Intake and Output for Last 24 Hours 05/25/21 05/26/21 05/27/21 23:59 23:59 23:59 Intake Total 150 / 550 1200 / 1200 120 / 120 Output Total 200 / 200 Balance 150 / 550 1200 / 1000 -80 / -80 Medical Nutrition Assessment Dietitian: Malnutrition Criteria Met Start: 05/25/21 10:17 Freq: Status: Active Protocol: Document 05/25/21 10:17 (Rec: 05/25/21 10:17 [id number]) Nutrition Malnutrition Evidence of Malnutrition Exists Yes Malnutrition (severe): Acute Illness/Injury Evidenced By Suboptimal Energy Intake ( Severe),Weight Loss (Severe) Intake Problem Inadequate Oral Intake Etiology related to fluctuating appetite w/ acute illness Signs/Symptoms as evidenced by estimated PO intake meeting <50% of estimated energy needs Status Active Problem Clinical Problem Acute Disease or Injury Related Malnutrition Etiology severe, acute malnutrition r/t inadequate energy intake w/ acute illness Signs/Symptoms as evidenced by unintentional wt loss of 3.9kg/5.5% x6 days, estimated PO intake meeting < 50% of estimated energy needs x 1 week Status Active Problem Recommendation Dietitian Recommendations/Changes Continue regular diet as ordered. Will add 120mL ensure compact w/ meals for additional calories/protein if consumed. Lab / Micro Data Result Diagrams: 05/27/21 06:35 05/27/21 06:35 Labs: Laboratory Results - last 24 hr 05/27/21 06:35: WBC 13.3 H, RBC 4.30 L, Hgb 13.0, Hct 38.7 L, MCV 90.0, MCH 30.2, MCHC 33.6, RDW Std Deviation 42.7, RDW Coeff of Jan 13.1, Plt Count 384, MPV 10.7, Immature Gran % (Auto) 2.300 H, Neut % (Auto) 78.5 H, Lymph % (Auto) 13.3 L, [place] % (Auto) 4.6, Eos % (Auto) 1.1, Baso % (Auto) 0.2, Absolute Neuts (auto) 10.4 H, Absolute Lymphs (auto) 1.77, Nucleated RBC % 0 05/27/21 06:35: Sodium 139, Potassium 3.9, Chloride 109 H, Carbon Dioxide 23.0, Anion Gap 7, BUN 25 H, Creatinine 0.71, Estim Creat Clear Calc 66.71, Est GFR (MDRD) Af Amer 143, Est GFR (MDRD) Non-Af 118, BUN/Creatinine Ratio 35.4 H, Glucose 78, Calcium 8.5, Total Bilirubin 0.90, AST 31, ALT 61, Alkaline Phosphatase 82, Total Protein 6.4, Albumin 2.0 L, Globulin 4.4 H, Albumin/Globulin Ratio 0.5 L Micro: Microbiology 05/18/21 09:42 Blood Culture (Wb) - Anticubital Left Blood Culture - Final No growth in 5 days. 05/18/21 08:53 Blood Culture (Wb) - Anticubital Right Blood Culture - Final No growth in 5 days. 05/20/21 07:08 Sputum, Expectorated/Coughed Gram Stain - Final 05/20/21 07:08 Sputum, Expectorated/Coughed Respiratory Culture - Final 05/18/21 08:53 Interface Orders SARS-CoV-2 Antigen (Rapid) - Final SARS-CoV-2 (COVID 19) Physical Exam Const alert, oriented x3, no apparent distress and average body habitus General Appearance: cooperative, well kempt and well developed Orientation / Consciousness: awake, oriented to person, oriented to place and oriented to time Exam Limitations: no limitations HEENT normocephalic, head/scalp atraumatic, moist oral mucous membranes and oropharynx normal Head and Scalp: normocephalic Eyes PERRL, EOMs intact bilaterally and conjunctivae normal Neck nuchal rigidity, no lymphadenopathy, supple, no JVD, thyroid normal and no carotid bruits General: trachea midline Resp Resp Narrative: diminished breath sounds bibasally, no wheezes, no crackles. on 5L of oxygen at time of review. Cardio regular rate, regular rhythm, S1 normal heart sound, S2 normal heart sound, no murmurs, no rub, no gallops, no clicks and no JVD GI normal to inspection, nondistended, normoactive bowel sounds, soft to palpation, non-tender and non-distended; Negative for hepatosplenomegaly Extremity normal to inspection, full ROM and no clubbing, cyanosis or edema Peripheral Pulses: Yes pulses 2+ throughout Skin no rashes or lesions noted General Skin Exam: no breakdown Neuro oriented x3, CN's II-XII intact bilaterally, moves all extremities, no focal motor deficits and no sensory deficits noted Sensorium / Orientation: awake and alert Speech: speech normal Psych thought process normal and affect normal Appearance: appropriate Assessment & Plan Assessment/Plan (1) Acute respiratory failure with hypoxia: (2) Pneumonia due to COVID-19 virus: PLAN: #Acute hypoxic respiratory failure due to covid 19 pneumonia * on dexamethasone. Has finished a course of remdesivir * titrate oxygen to maintain sats >90% * still on 5L of oxygen * diurese as needed to maintain euvolemic status DVT prophylaxis: lovenox Disposition: anticipate discharge home tomorrow. Charges/Coding Visit Charges Inpatient E&M: 29718 Subs Hosp L2
[2021-05-27] MEDS: BENZOCAINE/MENTHOL 1 LOZENGE MUCOUS MEM (15:34)
[2021-05-28] VITALS (10 sets, daily range): BP systolic 108–113; BP diastolic 66–68; PULSE 63–85; RESP 20; TEMP 35.7–36.7; O2SAT 85–98
[2021-05-28 06:10] LABS: Absolute Neutrophil Count 10.1 X10^3/uL (2.0-7.7); Basophil# 0.02 X10^3/uL; Basophil% 0.2 % (0-1); Eosinophils% 0.8 % (0-5); Hematocrit 38.6 % (40-54); Hemoglobin 12.8 g/dL (13.0-16.5); Lymphocyte % 12.5 % (19-41); Mean Corp Hgb Conc 33.2 g/dL (32-36); Mean Corpuscular Volume 90.6 fL (80-94); Mean Platelet Vol. 10.6 fl (6.2-12.0); Monocyte# 0.78 X10^3/uL; Monocyte% 6.1 % (0-10); NRBC Flagged by Analyzer 0 % (0-5); Neutrophil # 10.07 X10^3/uL (2.7-7.7); Neutrophil % 78.6 % (47-70); Platelet Count 371 K/mm3 (150-450); RBC Distribution Width CV 13.1 % (11.6-14.6); RBC Distribution Width SD 42.5 fl (35.1-43.9); Red Blood Count 4.26 M/mm3 (4.6-6.2); White Blood Count 12.8 K/mm3 (4.4-11.0)
[2021-05-28 06:40] LABS: ALB/GLOB Ratio 0.5 RATIO (0.9-2.4); AST(SGOT) 28 U/L (15-37); Alanine Aminotransfer ALT/SGPT 67 U/L (16-61); Albumin, Serum 2.1 g/dL (3.2-5.0); Alkaline Phosphatase 95 U/L (45-117); Anion Gap 3 (5-15); BUN 22 mg/dL (7-18); BUN/Creat Ratio 30.5 RATIO (10-20); Calcium,Total 8.2 mg/dL (8.5-10.1); Chloride 108 mmol/L (98-107); Creatinine, Serum 0.72 mg/dL (0.70-1.30); EST Glomerular Filtration Rate 115 mL/min (>60); Est Glom Filt Rate - Afr Amer 139 mL/min (>60); Estimated Creatinine Clearance 67.22 ml/min; Globulin 4.3 g/dL (2.2-4.2); Glucose 79 mg/dL (74-106); Potassium 4.1 mmol/L (3.5-5.1); Protein, Total 6.4 g/dL (6.4-8.2); Sodium Level 139 mmol/L (136-145)
[2021-05-28] MEDS: Enoxaparin 30 MG/0.3 ML Syringe SC ×2 (10:17→20:49)
[2021-05-28] MEDS: dexAMETHasone 4 MG Tablet 6 MG PO (10:17)
[2021-05-28] MEDS: guaiFENesin 1,200 MG Tablet 1200 MG PO ×2 (10:18→20:50)
--- NOTE | 2021-05-28 12:17 | PN.HOSP_ITS ---
Subjective Subjective Seen and examined. He felt better today and had no complaints. Review of systems otherwise negative. He was down to 2 L of oxygen at time I reviewed him. Plan was to discharge patient home today but he had walking pulse ox which showed he required 9 L of oxygen. Discharge therefore put on hold for today. Objective Data Objective Data Vital Signs: Vital Signs Temp Pulse Resp BP Pulse Ox 96.9 F L 85 20 H 110/67 88 05/28/21 10:30 05/28/21 10:30 05/28/21 10:30 05/28/21 10:30 05/28/21 11:44 Oxygen Flow Rate (L/min) [ 9 AMBULATING with Oxygen #3] Oxygen Flow Rate (L/min) [ 4 AMBULATING with Oxygen #2] Oxygen Flow Rate (L/min) [At 2 REST with Oxygen] Oxygen Flow Rate (L/min) [ 2 AMBULATING with Oxygen #1] Oxygen Flow Rate (L/min) 5 Oxygen Delivery Method Nasal Cannula Weight: 146 lb 2.664 oz Body Mass Index (BMI) 21.9 Intake & Output: Intake and Output for Last 24 Hours 05/26/21 05/27/21 05/28/21 23:59 23:59 23:59 Intake Total 1200 / 1200 1160 / 1160 0 / 0 Output Total 200 / 200 0 / 0 Balance 1200 / 1000 960 / 960 0 / 0 Medical Nutrition Assessment Dietitian: Malnutrition Criteria Met Start: 05/25/21 10:17 Freq: Status: Active Protocol: Document 05/25/21 10:17 (Rec: 05/25/21 10:17 [id number]) Nutrition Malnutrition Evidence of Malnutrition Exists Yes Malnutrition (severe): Acute Illness/Injury Evidenced By Suboptimal Energy Intake ( Severe),Weight Loss (Severe) Intake Problem Inadequate Oral Intake Etiology related to fluctuating appetite w/ acute illness Signs/Symptoms as evidenced by estimated PO intake meeting <50% of estimated energy needs Status Active Problem Clinical Problem Acute Disease or Injury Related Malnutrition Etiology severe, acute malnutrition r/t inadequate energy intake w/ acute illness Signs/Symptoms as evidenced by unintentional wt loss of 3.9kg/5.5% x6 days, estimated PO intake meeting < 50% of estimated energy needs x 1 week Status Active Problem Recommendation Dietitian Recommendations/Changes Continue regular diet as ordered. Will add 120mL ensure compact w/ meals for additional calories/protein if consumed. Lab / Micro Data Result Diagrams: 05/28/21 05:44 05/28/21 05:44 Labs: Laboratory Results - last 24 hr 05/28/21 05:44: WBC 12.8 H, RBC 4.26 L, Hgb 12.8 L, Hct 38.6 L, MCV 90.6, MCH 30.0, MCHC 33.2, RDW Std Deviation 42.5, RDW Coeff of Jan 13.1, Plt Count 371, MPV 10.6, Immature Gran % (Auto) 1.800 H, Neut % (Auto) 78.6 H, Lymph % (Auto) 12.5 L, [place] % (Auto) 6.1, Eos % (Auto) 0.8, Baso % (Auto) 0.2, Absolute Neuts (auto) 10.1 H, Absolute Lymphs (auto) 1.60, Nucleated RBC % 0 05/28/21 05:44: Sodium 139, Potassium 4.1, Chloride 108 H, Carbon Dioxide 28.0, Anion Gap 3 L, BUN 22 H, Creatinine 0.72, Estim Creat Clear Calc 67.22, Est GFR (MDRD) Af Amer 139, Est GFR (MDRD) Non-Af 115, BUN/Creatinine Ratio 30.5 H, Glucose 79, Calcium 8.2 L, Total Bilirubin 0.70, AST 28, ALT 67 H, Alkaline Phos phatase 95, Total Protein 6.4, Albumin 2.1 L, Globulin 4.3 H, Albumin/Globulin Ratio 0.5 L Micro: Microbiology 05/18/21 09:42 Blood Culture (Wb) - Anticubital Left Blood Culture - Final No growth in 5 days. 05/18/21 08:53 Blood Culture (Wb) - Anticubital Right Blood Culture - Final No growth in 5 days. 05/20/21 07:08 Sputum, Expectorated/Coughed Gram Stain - Final 05/20/21 07:08 Sputum, Expectorated/Coughed Respiratory Culture - Final 05/18/21 08:53 Interface Orders SARS-CoV-2 Antigen (Rapid) - Final SARS-CoV-2 (COVID 19) Physical Exam Const alert, oriented x3, no apparent distress and average body habitus General Appearance: cooperative, well kempt and well developed Orientation / Consciousness: awake, oriented to person, oriented to place and oriented to time Exam Limitations: no limitations HEENT normocephalic, head/scalp atraumatic, moist oral mucous membranes and oropharynx normal Head and Scalp: normocephalic Eyes PERRL, EOMs intact bilaterally and conjunctivae normal Neck nuchal rigidity, no lymphadenopathy, supple, no JVD, thyroid normal and no carotid bruits General: trachea midline Resp normal respiratory effort, no retractions, no use of accessory muscles and clear to auscultation bilaterally Resp Narrative: diminished breath sounds bibasally, no wheezes, no crackles. on 3L of oxygen at time of review. Auscultation: Negative for crackles, rales, rhonchi or wheezes Cardio regular rate, regular rhythm, S1 normal heart sound, S2 normal heart sound, no murmurs, no rub, no gallops, no clicks and no JVD GI normal to inspection, nondistended, normoactive bowel sounds, soft to palpation, non-tender and non-distended; Negative for hepatosplenomegaly Extremity normal to inspection, full ROM and no clubbing, cyanosis or edema Skin no rashes or lesions noted General Skin Exam: no breakdown Neuro oriented x3, CN's II-XII intact bilaterally, moves all extremities, no focal motor deficits and no sensory deficits noted Sensorium / Orientation: awake and alert Speech: speech normal Psych thought process normal and affect normal Appearance: appropriate Assessment & Plan Assessment/Plan (1) Acute respiratory failure with hypoxia: (2) Pneumonia due to COVID-19 virus: PLAN: #Acute hypoxic respiratory failure due to covid 19 pneumonia * on dexamethasone. Has finished a course of remdesivir * titrate oxygen to maintain sats >90% * On 3L of oxygen today; * diurese as needed to maintain euvolemic status * Had a walking pulse ox today which showed that he required up to 9 L of oxygen. We will therefore keep patient to optimize him further. DVT prophylaxis: lovenox Disposition: anticipate discharge home tomorrow. Charges/Coding Visit Charges Inpatient E&M: 13127 Subs Hosp L2
[2021-05-29] VITALS (11 sets, daily range): BP systolic 104–118; BP diastolic 67–72; PULSE 72–106; RESP 18–20; TEMP 36.4–36.6; O2SAT 76–99
[2021-05-29 07:08] LABS: Absolute Lymphocyte Count 2.79 X10^3/uL (0.83-4.51); Absolute Neutrophil Count 11.4 X10^3/uL (2.0-7.7); Basophil# 0.02 X10^3/uL; Basophil% 0.1 % (0-1); Eosinophil# 0.15 X10^3/uL; Hemoglobin 14.6 g/dL (13.0-16.5); Lymphocyte # 2.79 X10^3/ul (0.83-4.51); Mean Corp Hgb Conc 33.2 g/dL (32-36); Mean Corpuscular Hgb 30.3 pg (27.0-32.0); Mean Corpuscular Volume 91.3 fL (80-94); Mean Platelet Vol. 10.7 fl (6.2-12.0); Monocyte# 0.96 X10^3/uL; Monocyte% 6.2 % (0-10); NRBC Flagged by Analyzer 0 % (0-5); Neutrophil # 11.38 X10^3/uL (2.7-7.7); Neutrophil % 73.2 % (47-70); Platelet Count 403 K/mm3 (150-450); RBC Distribution Width CV 13.2 % (11.6-14.6); RBC Distribution Width SD 43.5 fl (35.1-43.9); Red Blood Count 4.82 M/mm3 (4.6-6.2); White Blood Count 15.5 K/mm3 (4.4-11.0)
[2021-05-29 07:36] LABS: ALB/GLOB Ratio 0.5 RATIO (0.9-2.4); AST(SGOT) 38 U/L (15-37); Alanine Aminotransfer ALT/SGPT 83 U/L (16-61); Albumin, Serum 2.3 g/dL (3.2-5.0); Alkaline Phosphatase 91 U/L (45-117); Anion Gap 6 (5-15); BUN 26 mg/dL (7-18); BUN/Creat Ratio 26.2 RATIO (10-20); Calcium,Total 8.7 mg/dL (8.5-10.1); Chloride 108 mmol/L (98-107); Creatinine, Serum 0.99 mg/dL (0.70-1.30); EST Glomerular Filtration Rate 80 mL/min (>60); Est Glom Filt Rate - Afr Amer 97 mL/min (>60); Estimated Creatinine Clearance 67.39 ml/min; Globulin 4.8 g/dL (2.2-4.2); Glucose 94 mg/dL (74-106); Potassium 3.9 mmol/L (3.5-5.1); Protein, Total 7.1 g/dL (6.4-8.2); Sodium Level 140 mmol/L (136-145)
[2021-05-29] MEDS: guaiFENesin 1,200 MG Tablet 1200 MG PO ×2 (10:13→22:53)
[2021-05-29] MEDS: dexAMETHasone 4 MG Tablet 6 MG PO (10:13)
[2021-05-29] MEDS: Enoxaparin 30 MG/0.3 ML Syringe SC ×2 (10:14→22:54)
--- NOTE | 2021-05-29 16:06 | PN.HOSP_ITS ---
Subjective Subjective Patient seen and examined. He has no active complaints and feels his shortness of breath is getting better. Review of systems is otherwise negative. Objective Data Objective Data Vital Signs: Vital Signs Temp Pulse Resp BP Pulse Ox 97.8 F 106 H 18 117/67 99 05/29/21 15:15 05/29/21 15:15 05/29/21 15:15 05/29/21 15:15 05/29/21 15:15 Oxygen Flow Rate (L/min) [ 13 AMBULATING with Oxygen #3] Oxygen Flow Rate (L/min) [ 6 AMBULATING with Oxygen #2] Oxygen Flow Rate (L/min) [At 3 REST with Oxygen] Oxygen Flow Rate (L/min) [ 3 AMBULATING with Oxygen #1] Oxygen Flow Rate (L/min) 3 Oxygen Delivery Method Nasal Cannula Weight: 145 lb 1.027 oz Body Mass Index (BMI) 21.9 Intake & Output: Intake and Output for Last 24 Hours 05/27/21 05/28/21 05/29/21 23:59 23:59 23:59 Intake Total 1160 / 1160 0 / 250 250 / 250 Output Total 200 / 200 0 / 0 400 / 400 Balance 960 / 960 0 / 250 -150 / -150 Medical Nutrition Assessment Dietitian: Malnutrition Criteria Met Start: 05/25/21 10:17 Freq: Status: Active Protocol: Document 05/25/21 10:17 (Rec: 05/25/21 10:17 [id number]) Nutrition Malnutrition Evidence of Malnutrition Exists Yes Malnutrition (severe): Acute Illness/Injury Evidenced By Suboptimal Energy Intake ( Severe),Weight Loss (Severe) Intake Problem Inadequate Oral Intake Etiology related to fluctuating appetite w/ acute illness Signs/Symptoms as evidenced by estimated PO intake meeting <50% of estimated energy needs Status Active Problem Clinical Problem Acute Disease or Injury Related Malnutrition Etiology severe, acute malnutrition r/t inadequate energy intake w/ acute illness Signs/Symptoms as evidenced by unintentional wt loss of 3.9kg/5.5% x6 days, estimated PO intake meeting < 50% of estimated energy needs x 1 week Status Active Problem Recommendation Dietitian Recommendations/Changes Continue regular diet as ordered. Will add 120mL ensure compact w/ meals for additional calories/protein if consumed. Lab / Micro Data Result Diagrams: 05/29/21 06:49 05/29/21 06:49 Labs: Laboratory Results - last 24 hr 05/29/21 06:49: WBC 15.5 H, RBC 4.82, Hgb 14.6, Hct 44.0, MCV 91.3, MCH 30.3, MCHC 33.2, RDW Std Deviation 43.5, RDW Coeff of Jan 13.2, Plt Count 403, MPV 10.7, Immature Gran % (Auto) 1.500 H, Neut % (Auto) 73.2 H, Lymph % (Auto) 18.0 L, [place] % (Auto) 6.2, Eos % (Auto) 1.0, Baso % (Auto) 0.1, Absolute Neuts (auto) 11.4 H, Absolute Lymphs (auto) 2.79, Nucleated RBC % 0 05/29/21 06:49: Sodium 140, Potassium 3.9, Chloride 108 H, Carbon Dioxide 26.0, Anion Gap 6, BUN 26 H, Creatinine 0.99, Estim Creat Clear Calc 67.39, Est GFR (MDRD) Af Amer 97, Est GFR (MDRD) Non-Af 80, BUN/Creatinine Ratio 26.2 H, Glucose 94, Calcium 8.7, Total Bilirubin 0.70, AST 38 H, ALT 83 H, Alkaline Phosphatase 91, Total Protein 7.1, Albumin 2.3 L, Globulin 4.8 H, Albumin/Globulin Ratio 0.5 L Micro: Microbiology 05/18/21 09:42 Blood Culture (Wb) - Anticubital Left Blood Culture - Final No growth in 5 days. 05/18/21 08:53 Blood Culture (Wb) - Anticubital Right Blood Culture - Final No growth in 5 days. 05/20/21 07:08 Sputum, Expectorated/Coughed Gram Stain - Final 05/20/21 07:08 Sputum, Expectorated/Coughed Respiratory Culture - Final 05/18/21 08:53 Interface Orders SARS-CoV-2 Antigen (Rapid) - Final SARS-CoV-2 (COVID 19) Physical Exam Const alert, oriented x3, no apparent distress and average body habitus General Appearance: cooperative, well kempt and well developed Orientation / Consciousness: awake, oriented to person, oriented to place and oriented to time Exam Limitations: no limitations HEENT normocephalic, head/scalp atraumatic, moist oral mucous membranes and oropharynx normal Head and Scalp: normocephalic Eyes PERRL, EOMs intact bilaterally and conjunctivae normal Neck nuchal rigidity, no lymphadenopathy, supple, no JVD, thyroid normal and no abrams tid bruits General: trachea midline Resp normal respiratory effort, no retractions, no use of accessory muscles and clear to auscultation bilaterally Resp Narrative: diminished breath sounds bibasally, no wheezes, no crackles. on 3L of oxygen at time of review. Auscultation: Negative for crackles, rales, rhonchi or wheezes Cardio regular rate, regular rhythm, S1 normal heart sound, S2 normal heart sound, no murmurs, no rub, no gallops, no clicks and no JVD GI normal to inspection, nondistended, normoactive bowel sounds, soft to palpation, non-tender and non-distended; Negative for hepatosplenomegaly Extremity normal to inspection, full ROM and no clubbing, cyanosis or edema Skin no rashes or lesions noted General Skin Exam: no breakdown Neuro oriented x3, CN's II-XII intact bilaterally, moves all extremities, no focal motor deficits and no sensory deficits noted Sensorium / Orientation: awake and alert Speech: speech normal Psych thought process normal and affect normal Appearance: appropriate Assessment & Plan Assessment/Plan (1) Acute respiratory failure with hypoxia: (2) Pneumonia due to COVID-19 virus: PLAN: #Acute hypoxic respiratory failure due to covid 19 pneumonia * on dexamethasone. Has finished a course of remdesivir. To complete a 10 day course of dexamethasone. * titrate oxygen to maintain sats >90% * On 3L of oxygen today; however, with walking pulse ox, he required 13L of oxygen. * diurese as needed to maintain euvolemic status * will therefore hold off on discharge to DVT prophylaxis: lovenox Disposition: anticipate discharge over the next 48-72 hours. Charges/Coding Visit Charges Inpatient E&M: 88366 Subs Hosp L2
[2021-05-29] MEDS: 0.9% Saline Lock 10 ML Syringe IV (22:54)
[2021-05-30] VITALS (13 sets, daily range): BP systolic 97–118; BP diastolic 57–89; PULSE 86–140; RESP 16–20; TEMP 36.2–37.1; O2SAT 83–97
[2021-05-30 06:14] LABS: Absolute Lymphocyte Count 1.86 X10^3/uL (0.83-4.51); Absolute Neutrophil Count 10.3 X10^3/uL (2.0-7.7); Basophil# 0.02 X10^3/uL; Basophil% 0.1 % (0-1); Eosinophil# 0.08 X10^3/uL; Eosinophils% 0.6 % (0-5); Hematocrit 34.9 % (40-54); Hemoglobin 11.9 g/dL (13.0-16.5); Lymphocyte # 1.86 X10^3/ul (0.83-4.51); Lymphocyte % 13.7 % (19-41); Mean Corp Hgb Conc 34.1 g/dL (32-36); Mean Corpuscular Hgb 30.4 pg (27.0-32.0); Mean Platelet Vol. 10.5 fl (6.2-12.0); Monocyte# 1.17 X10^3/uL; Monocyte% 8.6 % (0-10); NRBC Flagged by Analyzer 0 % (0-5); Neutrophil # 10.27 X10^3/uL (2.7-7.7); Neutrophil % 75.9 % (47-70); Platelet Count 308 K/mm3 (150-450); RBC Distribution Width CV 13.2 % (11.6-14.6); RBC Distribution Width SD 42.5 fl (35.1-43.9); Red Blood Count 3.92 M/mm3 (4.6-6.2); White Blood Count 13.6 K/mm3 (4.4-11.0)
[2021-05-30 06:48] LABS: ALB/GLOB Ratio 0.5 RATIO (0.9-2.4); AST(SGOT) 35 U/L (15-37); Alanine Aminotransfer ALT/SGPT 79 U/L (16-61); Albumin, Serum 1.9 g/dL (3.2-5.0); Alkaline Phosphatase 71 U/L (45-117); Anion Gap 6 (5-15); BUN 25 mg/dL (7-18); BUN/Creat Ratio 35.9 RATIO (10-20); Chloride 108 mmol/L (98-107); EST Glomerular Filtration Rate 120 mL/min (>60); Est Glom Filt Rate - Afr Amer 145 mL/min (>60); Estimated Creatinine Clearance 66.41 ml/min; Glucose 84 mg/dL (74-106); Protein, Total 5.9 g/dL (6.4-8.2); Sodium Level 140 mmol/L (136-145)
[2021-05-30] MEDS: dexAMETHasone 4 MG Tablet 6 MG PO (09:35)
[2021-05-30] MEDS: Enoxaparin 30 MG/0.3 ML Syringe SC ×2 (09:35→22:20)
[2021-05-30] MEDS: guaiFENesin 1,200 MG Tablet 1200 MG PO ×2 (09:35→22:21)
--- NOTE | 2021-05-30 09:38 | NURSING ---
pt at rest
--- NOTE | 2021-05-30 09:48 | NURSING ---
PT BECAME VERY DYSPNEIC & TACHY WITH AMBULATION, WAS UNABLE TO CONTINUE OXYGEN QUALIFICATION ANY FURTHUR
[2021-05-30] MEDS: BENZOCAINE/MENTHOL 1 LOZENGE MUCOUS MEM (09:57)
--- NOTE | 2021-05-30 15:21 | NURSING ---
SPOKE TO PTS , ROSA M WITH UPDATE
--- NOTE | 2021-05-30 15:54 | PN.HOSP_ITS ---
Subjective Subjective Patient seen and examined. He felt much better today and had no complaints. He felt he was ready to go home. However, patient again failed his walking pulse ox again today, precluding discharge. Objective Data Objective Data Vital Signs: Vital Signs Temp Pulse Resp BP Pulse Ox 97.9 F 106 H 18 118/68 97 05/30/21 09:29 05/30/21 09:49 05/30/21 09:29 05/30/21 09:29 05/30/21 14:55 Oxygen Flow Rate (L/min) [ 9 AMBULATING with Oxygen #3] Oxygen Flow Rate (L/min) [ 5 AMBULATING with Oxygen #2] Oxygen Flow Rate (L/min) [At 3 REST with Oxygen] Oxygen Flow Rate (L/min) [ 2 AMBULATING with Oxygen #1] Oxygen Flow Rate (L/min) 2 Oxygen Delivery Method Nasal Cannula Weight: 144 lb 6.444 oz Body Mass Index (BMI) 21.9 Intake & Output: Intake and Output for Last 24 Hours 05/28/21 05/29/21 05/30/21 23:59 23:59 23:59 Intake Total 0 / 250 250 / 650 880 / 880 Output Total 0 / 0 800 / 900 350 / 350 Balance 0 / 250 -550 / -250 530 / 530 Medical Nutrition Assessment Dietitian: Malnutrition Criteria Met Start: 05/25/21 10:17 Freq: Status: Active Protocol: Document 05/25/21 10:17 (Rec: 05/25/21 10:17 [id number]) Nutrition Malnutrition Evidence of Malnutrition Exists Yes Malnutrition (severe): Acute Illness/Injury Evidenced By Suboptimal Energy Intake ( Severe),Weight Loss (Severe) Intake Problem Inadequate Oral Intake Etiology related to fluctuating appetite w/ acute illness Signs/Symptoms as evidenced by estimated PO intake meeting <50% of estimated energy needs Status Active Problem Clinical Problem Acute Disease or Injury Related Malnutrition Etiology severe, acute malnutrition r/t inadequate energy intake w/ acute illness Signs/Symptoms as evidenced by unintentional wt loss of 3.9kg/5.5% x6 days, estimated PO intake meeting < 50% of estimated energy needs x 1 week Status Active Problem Recommendation Dietitian Recommendations/Changes Continue regular diet as ordered. Will add 120mL ensure compact w/ meals for additional calories/protein if consumed. Lab / Micro Data Result Diagrams: 05/30/21 06:00 05/30/21 06:00 Labs: Laboratory Results - last 24 hr 05/30/21 06:00: WBC 13.6 H, RBC 3.92 L, Hgb 11.9 L, Hct 34.9 L, MCV 89.0, MCH 30.4, MCHC 34.1, RDW Std Deviation 42.5, RDW Coeff of Jan 13.2, Plt Count 308, MPV 10.5, Immature Gran % (Auto) 1.100 H, Neut % (Auto) 75.9 H, Lymph % (Auto) 13.7 L, [place] % (Auto) 8.6, Eos % (Auto) 0.6, Baso % (Auto) 0.1, Absolute Neuts (auto) 10.3 H, Absolute Lymphs (auto) 1.86, Nucleated RBC % 0 05/30/21 06:00: Sodium 140, Potassium 4.0, Chloride 108 H, Carbon Dioxide 26.0, Anion Gap 6, BUN 25 H, Creatinine 0.70, Estim Creat Clear Calc 66.41, Est GFR (MDRD) Af Amer 145, Est GFR (MDRD) Non-Af 120, BUN/Creatinine Ratio 35.9 H, Glucose 84, Calcium 8.0 L, Total Bilirubin 0.70, AST 35, ALT 79 H, Alkaline Phosphatase 71, Total Protein 5.9 L, Albumin 1.9 L, Globulin 4.0, Albumi n/Globulin Ratio 0.5 L Micro: Microbiology 05/18/21 09:42 Blood Culture (Wb) - Anticubital Left Blood Culture - Final No growth in 5 days. 05/18/21 08:53 Blood Culture (Wb) - Anticubital Right Blood Culture - Final No growth in 5 days. 05/20/21 07:08 Sputum, Expectorated/Coughed Gram Stain - Final 05/20/21 07:08 Sputum, Expectorated/Coughed Respiratory Culture - Final 05/18/21 08:53 Interface Orders SARS-CoV-2 Antigen (Rapid) - Final SARS-CoV-2 (COVID 19) Physical Exam Const alert, oriented x3, no apparent distress and average body habitus General Appearance: cooperative, well kempt and well developed Orientation / Consciousness: awake, oriented to person, oriented to place and oriented to time Exam Limitations: no limitations HEENT normocephalic, head/scalp atraumatic, moist oral mucous membranes and oropharynx normal Head and Scalp: normocephalic Eyes PERRL, EOMs intact bilaterally and conjunctivae normal Neck nuchal rigidity, no lymphadenopathy, supple, no JVD, thyroid normal and no carotid bruits General: trachea midline Resp Resp Narrative: diminished breath sounds bibasally, no wheezes, no crackles. on 2L of oxygen at time of review. Auscultation: Negative for crackles, rales, rhonchi or wheezes Cardio regular rate, regular rhythm, S1 normal heart sound, S2 normal heart sound, no murmurs, no rub, no gallops, no clicks and no JVD GI normal to inspection, nondistended, normoactive bowel sounds, soft to palpation, non-tender and non-distended; Negative for hepatosplenomegaly Extremity normal to inspection, full ROM and no clubbing, cyanosis or edema Peripheral Pulses: Yes pulses 2+ throughout Skin no rashes or lesions noted General Skin Exam: no breakdown Neuro oriented x3, CN's II-XII intact bilaterally, moves all extremities, no focal motor deficits and no sensory deficits noted Sensorium / Orientation: awake and alert Speech: speech normal Psych thought process normal and affect normal Appearance: appropriate Assessment & Plan Assessment/Plan (1) Acute respiratory failure with hypoxia: (2) Pneumonia due to COVID-19 virus: PLAN: #Acute hypoxic respiratory failure due to covid 19 pneumonia * on dexamethasone. Has finished a course of remdesivir. To complete a 10 day course of dexamethasone. * titrate oxygen to maintain sats >90% * On 2L of oxygen today; however, with walking pulse ox,he got very tachycardic and hypoxic. * diurese as needed to maintain euvolemic status * will therefore hold off on discharge to DVT prophylaxis: lovenox Disposition: awaiting discharge. may need to consider placement for rehab due to persistent marked hypoxia with ambulation. Charges/Coding Visit Charges Inpatient E&M: 71229 Subs Hosp L2
[2021-05-31] VITALS (7 sets, daily range): BP systolic 94–122; BP diastolic 60–71; PULSE 89–113; RESP 16–24; TEMP 35.7–36.6; O2SAT 91–96
[2021-05-31] MEDS: Enoxaparin 30 MG/0.3 ML Syringe SC ×2 (08:39→21:40)
[2021-05-31] MEDS: dexAMETHasone 4 MG Tablet 6 MG PO (08:39)
[2021-05-31] MEDS: guaiFENesin 1,200 MG Tablet 1200 MG PO ×2 (08:40→21:40)
--- NOTE | 2021-05-31 08:53 | NURSING ---
DR BLAKE MAKING ROUNDS, MADE HER AWARE OF PT'S RED/DRY AREAS ABD/CHEST/BACK. PT DENIES PAIN/ITCHING @ SITES. STATES PT WILL NEED TO F/U WITH DERMATOLOGY OUTPT. NO FURTHER NEW ORDERS @ THIS TIME.
--- NOTE | 2021-05-31 15:40 | PN.HOSP_ITS ---
Subjective Subjective Patient seen and examined. He has no complaints today. Patient at rest is on 2 L of oxygen but with ambulation still drops to the the 80s and 70s even on 6 L of oxygen. Patient is now agreeable to go to a rehab facility for further optimization. He has otherwise remained hemodynamically stable. Objective Data Objective Data Vital Signs: Vital Signs Temp Pulse Resp BP Pulse Ox 97.2 F L 89 20 H 94/60 95 05/31/21 11:30 05/31/21 11:30 05/31/21 11:30 05/31/21 11:30 05/31/21 11:30 Oxygen Flow Rate (L/min) [ 9 AMBULATING with Oxygen #3] Oxygen Flow Rate (L/min) [ 5 AMBULATING with Oxygen #2] Oxygen Flow Rate (L/min) [At 3 REST with Oxygen] Oxygen Flow Rate (L/min) [ 2 AMBULATING with Oxygen #1] Oxygen Flow Rate (L/min) 2 Oxygen Delivery Method Nasal Cannula Weight: 146 lb 4 oz Body Mass Index (BMI) 21.9 Intake & Output: Intake and Output for Last 24 Hours 05/29/21 05/30/21 05/31/21 23:59 23:59 23:59 Intake Total 250 / 650 1280 / 1280 460 / 460 Output Total 800 / 900 350 / 350 250 / 250 Balance -550 / -250 930 / 930 210 / 210 Medical Nutrition Assessment Dietitian: Malnutrition Criteria Met Start: 05/25/21 10:17 Freq: Status: Active Protocol: Document 05/25/21 10:17 (Rec: 05/25/21 10:17 [id number]) Nutrition Malnutrition Evidence of Malnutrition Exists Yes Malnutrition (severe): Acute Illness/Injury Evidenced By Suboptimal Energy Intake ( Severe),Weight Loss (Severe) Intake Problem Inadequate Oral Intake Etiology related to fluctuating appetite w/ acute illness Signs/Symptoms as evidenced by estimated PO intake meeting <50% of estimated energy needs Status Active Problem Clinical Problem Acute Disease or Injury Related Malnutrition Etiology severe, acute malnutrition r/t inadequate energy intake w/ acute illness Signs/Symptoms as evidenced by unintentional wt loss of 3.9kg/5.5% x6 days, estimated PO intake meeting < 50% of estimated energy needs x 1 week Status Active Problem Recommendation Dietitian Recommendations/Changes Continue regular diet as ordered. Will add 120mL ensure compact w/ meals for additional calories/protein if consumed. Lab / Micro Data Result Diagrams: 05/30/21 06:00 05/30/21 06:00 Micro: Microbiology 05/18/21 09:42 Blood Culture (Wb) - Anticubital Left Blood Culture - Final No growth in 5 days. 05/18/21 08:53 Blood Culture (Wb) - Anticubital Right Blood Culture - Final No growth in 5 days. 05/20/21 07:08 Sputum, Expectorated/Coughed Gram Stain - Final 05/20/21 07:08 Sputum, Expectorated/Coughed Respiratory Culture - Final 05/18/21 08:53 Interface Orders SARS-CoV-2 Antigen (Rapid) - Final SARS-CoV-2 (COVID 19) Physical Exam Const alert, oriented x3, no apparent distress and average body habitus Constitutional Narrative: Patient appears older than his stated age General Appearance: cooperative, well kempt and well developed Orientation / Consciousness: awake, oriented to person, oriented to place and oriented to time Exam Limitations: no limitations HEENT normocephalic, head/scalp atraumatic, moist oral mucous membranes and oropharynx normal Head and Scalp: normocephalic Eyes PERRL, EOMs intact bilaterally and conjunctivae normal Neck nuchal rigidity, no lymphadenopathy, supple, no JVD, thyroid normal and no carotid bruits General: trachea midline Resp normal respiratory effort, no retractions, no use of accessory muscles and clear to auscultation bilaterally Resp Narrative: diminished breath sounds bibasally, no wheezes, no crackles. on 2L of oxygen at time of review. Auscultation: Negative for crackles, rales, rhonchi or wheezes Cardio regular rate, regular rhythm, S1 normal heart sound, S2 normal heart sound, no murmurs, no rub, no gallops, no clicks and no JVD GI normal to inspection, nondistended, normoactive bowel sounds, soft to palpation, non-tender and non-distended; Negative for hepatosplenomegaly Extremity normal to inspection, full ROM and no clubbing, cyanosis or edema Skin no rashes or lesions noted General Skin Exam: no breakdown Neuro oriented x3, CN's II-XII intact bilaterally, moves all extremities, no focal motor deficits and no sensory deficits noted Sensorium / Orientation: awake and alert Speech: speech normal Psych thought process normal and affect normal Appearance: appropriate Assessment & Plan Assessment/Plan (1) Acute respiratory failure with hypoxia: (2) Pneumonia due to COVID-19 virus: PLAN: #Acute hypoxic respiratory failure due to covid 19 pneumonia * on dexamethasone. Has finished a course of remdesivir. To complete a 10 day course of dexamethasone. * titrate oxygen to maintain sats >90% * On 2L of oxygen today; however, with walking pulse ox,he still gets very tachypneic and tachycardic and desaturates down to the 80s, even on 6L of oxygen, and has required up to 9L. Patient now agreeable to placement. * diurese as needed to maintain euvolemic status * DVT prophylaxis: lovenox Disposition: awaiting placement. Unable to discharge home due to profound hypoxia with ambulation Charges/Coding Visit Charges Inpatient E&M: 58167 Subs Hosp L2
[2021-06-01] VITALS (9 sets, daily range): BP systolic 107–135; BP diastolic 1–77; PULSE 86–106; RESP 16–20; TEMP 36.2–36.9; O2SAT 78–98
--- NOTE | 2021-06-01 10:11 | NURSING ---
attempted home 02 oxygen trial. patient was resting in bed and 02 was at 2L and his saturations were 88-89% while talking. 02 was increased to 4L and sats got up to 90-91% at rest. Patient was assisted oob and saturations dropped almost instantly to 85%. 02 increased to 6L and patient's saturations continued to drop into the 70's. patient was assisted to chair to rest. 02 remains at 6L and sats are 90%.
[2021-06-01] MEDS: dexAMETHasone 4 MG Tablet 6 MG PO (10:14)
[2021-06-01] MEDS: guaiFENesin 1,200 MG Tablet 1200 MG PO ×2 (10:15→21:18)
[2021-06-01] MEDS: Enoxaparin 30 MG/0.3 ML Syringe SC ×2 (10:15→21:18)
--- NOTE | 2021-06-01 11:59 | CASEMGMT ---
Social Work Note SW in to speak with pt. Pt's son present in room. Pt gave this worker permission to speak to him in front of his guest. SW introduced self and role at [facility]. SW spoke with pt about recommendation of SNF placement. Pt states that his [facility] is working on placement for him. SW informed pt that this worker will call his [facility] then to discuss SNF placement and pt agreeable to this worker calling his [employer]. SW placed a call to pt's [employer] and left message requesting call back regarding discharge plans. SW to continue to follow. Plan: SN[facility] [employer], [employer]
[2021-06-01 13:37] LABS: D-Dimer Quantitative (DVT/PE) 0.58 FEU/ug/m (0.27-0.49)
--- NOTE | 2021-06-01 15:18 | CASEMGMT ---
Addendum entered by Yin Villa 06/01/21 16:04: SW received call from pt's Talita stating first choice for SNF is [facility] and second choice is [facility]. SW explained referral process to Talita. Talita states understanding. SW placed a call to Blas at [facility] and left message regarding referral. SW faxed referral to [facility]. Plan: [facility] pending acceptance Original Note: Social Work Note SW placed another call to pt's Talita and left message regarding SNF placement. SW waiting for call back. Yin Villa MEETING PLANNER, CLOUD OPERATIONS ENGINEER
--- NOTE | 2021-06-01 16:24 | PN.HOSP_ITS ---
Subjective Subjective Follow-up on acute hypoxic respiratory failure/acute COVID-19 pneumonia: Patient was seen and examined. He remains on Objective Data Objective Data Vital Signs: Vital Signs Temp Pulse Resp BP Pulse Ox 98.2 F 106 H 20 H 120/73 93 06/01/21 14:35 06/01/21 14:35 06/01/21 14:35 06/01/21 14:35 06/01/21 14:47 Oxygen Flow Rate (L/min) [ 6 AMBULATING with Oxygen #3] Oxygen Flow Rate (L/min) [ 4 AMBULATING with Oxygen #2] Oxygen Flow Rate (L/min) [At 4 REST with Oxygen] Oxygen Flow Rate (L/min) [ 2 AMBULATING with Oxygen #1] Oxygen Flow Rate (L/min) 6 Oxygen Delivery Method High Flow Weight: 66.338 kg Body Mass Index (BMI) 21.9 Intake & Output: Intake and Output for Last 24 Hours 05/30/21 05/31/21 06/01/21 23:59 23:59 23:59 Intake Total 1280 / 1280 860 / 860 450 / 450 Output Total 350 / 350 250 / 250 150 / 150 Balance 930 / 930 610 / 610 300 / 300 Medical Nutrition Assessment Dietitian: Malnutrition Criteria Met Start: 05/25/21 10:17 Freq: Status: Active Protocol: Document 05/25/21 10:17 (Rec: 05/25/21 10:17 [id number]) Nutrition Malnutrition Evidence of Malnutrition Exists Yes Malnutrition (severe): Acute Illness/Injury Evidenced By Suboptimal Energy Intake ( Severe),Weight Loss (Severe) Intake Problem Inadequate Oral Intake Etiology related to fluctuating appetite w/ acute illness Signs/Symptoms as evidenced by estimated PO intake meeting <50% of estimated energy needs Status Active Problem Clinical Problem Acute Disease or Injury Related Malnutrition Etiology severe, acute malnutrition r/t inadequate energy intake w/ acute illness Signs/Symptoms as evidenced by unintentional wt loss of 3.9kg/5.5% x6 days, estimated PO intake meeting < 50% of estimated energy needs x 1 week Status Active Problem Recommendation Dietitian Recommendations/Changes Continue regular diet as ordered. Will add 120mL ensure compact w/ meals for additional calories/protein if consumed. Lab / Micro Data Result Diagrams: 05/30/21 06:00 05/30/21 06:00 Labs: Laboratory Results - last 24 hr 06/01/21 13:03: D-Dimer Quant (PE/DVT) 0.58 H* Micro: Microbiology 05/18/21 09:42 Blood Culture (Wb) - Anticubital Left Blood Culture - Final No growth in 5 days. 05/18/21 08:53 Blood Culture (Wb) - Anticubital Right Blood Culture - Final No growth in 5 days. 05/20/21 07:08 Sputum, Expectorated/Coughed Gram Stain - Final 05/20/21 07:08 Sputum, Expectorated/Coughed Respiratory Culture - Final 05/18/21 08:53 Interface Orders SARS-CoV-2 Antigen (Rapid) - Final SARS-CoV-2 (COVID 19) Assessment & Plan Assessment/Plan (1) Acute respiratory failure with hypoxia: (2) Pneumonia due to COVID-19 virus: (3) Severe malnutrition: PLAN: 1. Acute hypoxic respiratory failure secondary to acute COVID-19 pneumonia, slightly worsening Patient is on 6 L of oxygen D-dimer is 0.58 Admitting chest x-ray showed bilateral perihilar airspace disease CT of the chest was negative for acute PE, showed severe bilateral pneumonia Obtain chest x-ray, trial of Lasix 40 mg IV x1 2. Acute kidney injury, likely prerenal from #1, resolved 3. Severe protein calorie malnutrition secondary to #1, assembler wire mesh gate consulted, continue supplements 4. DVT PPx- Lovenox BID Charges/Coding Visit Charges Inpatient E&M: 65550 Subs Hosp L2
--- NOTE | 2021-06-01 16:30 | RAD_ITS ---
STUDY: X-RAY CHEST REASON FOR EXAM: Male, 65 years old. Hypoxia TECHNIQUE: AP portable COMPARISON: 05/18/2021 FINDINGS: There is interstitial thickening in both lower lobes and right upper lobe with patchy areas of increased density most pronounced in the right upper and left lower lobes which may be consistent with atypical viral pneumonia. There is no demonstrated pleural abnormality. Heart is enlarged. Normal mediastinum and rajani. Normal visualized pulmonary arteries. Normal visualized aortic arch and descending thoracic aorta. Dorsal spine demonstrates degenerative change. Normal visualized ribs, clavicles, and shoulders. There is no demonstrated abnormality of the visualized soft tissue structures of the upper abdomen. There is improved aeration in the left upper lobe since prior exam. There is slight progression of airspace disease in the right lower lobe. RAD/Chest 1 View (Portable) IMPRESSION: Findings suspicious for Covid 19 pneumonia more severe in the right lung with improved aeration of the left upper lobe but slightly increased airspace disease in the right lower lobe since previous exam Electronically Signed: Eder Baker MD at 18:07 EST , Service support ,
[2021-06-01] MEDS: 0.9% Saline Lock 10 ML Syringe IV (17:34)
[2021-06-01] MEDS: Furosemide 40 MG/4 ML Vial IV (17:34)
[2021-06-02 02:55] VITALS: BP 118/62; PULSE 114; RESP 18; TEMP 36.2; O2SAT 96
[2021-06-02 03:02] VITALS: PULSE 114
[2021-06-02 06:49] LABS: Absolute Lymphocyte Count 2.27 X10^3/uL (0.83-4.51); Absolute Neutrophil Count 8.7 X10^3/uL (2.0-7.7); Basophil# 0.04 X10^3/uL; Basophil% 0.3 % (0-1); Eosinophil# 0.11 X10^3/uL; Eosinophils% 0.9 % (0-5); Hematocrit 35.3 % (40-54); Hemoglobin 11.7 g/dL (13.0-16.5); Lymphocyte # 2.27 X10^3/ul (0.83-4.51); Lymphocyte % 17.9 % (19-41); Mean Corp Hgb Conc 33.1 g/dL (32-36); Mean Corpuscular Hgb 29.9 pg (27.0-32.0); Mean Corpuscular Volume 90.3 fL (80-94); Mean Platelet Vol. 10.6 fl (6.2-12.0); Monocyte# 1.33 X10^3/uL; Monocyte% 10.5 % (0-10); NRBC Flagged by Analyzer 0 % (0-5); Neutrophil # 8.71 X10^3/uL (2.7-7.7); Neutrophil % 68.6 % (47-70); Platelet Count 350 K/mm3 (150-450); RBC Distribution Width CV 13.6 % (11.6-14.6); Red Blood Count 3.91 M/mm3 (4.6-6.2); White Blood Count 12.7 K/mm3 (4.4-11.0)
[2021-06-02 07:19] LABS: ALB/GLOB Ratio 0.5 RATIO (0.9-2.4); AST(SGOT) 30 U/L (15-37); Alanine Aminotransfer ALT/SGPT 99 U/L (16-61); Albumin, Serum 2.3 g/dL (3.2-5.0); Alkaline Phosphatase 77 U/L (45-117); Anion Gap 6 (5-15); BUN 30 mg/dL (7-18); BUN/Creat Ratio 35.2 RATIO (10-20); Calcium,Total 8.8 mg/dL (8.5-10.1); Chloride 107 mmol/L (98-107); Creatinine, Serum 0.85 mg/dL (0.70-1.30); EST Glomerular Filtration Rate 95 mL/min (>60); Est Glom Filt Rate - Afr Amer 115 mL/min (>60); Estimated Creatinine Clearance 78.37 ml/min; Globulin 4.2 g/dL (2.2-4.2); Glucose 85 mg/dL (74-106); Potassium 3.7 mmol/L (3.5-5.1); Protein, Total 6.5 g/dL (6.4-8.2); Sodium Level 142 mmol/L (136-145)
--- NOTE | 2021-06-02 08:44 | NURSING ---
Left message with patient's requesting call back on what the dc plan is for patient. This RN was under the impression that she wanted the patient to go to [facility] but the patient states he is going home with his .
[2021-06-02 09:36] VITALS: BP 128/82; PULSE 94; RESP 18; TEMP 36.3; O2SAT 98
[2021-06-02] MEDS: Enoxaparin 30 MG/0.3 ML Syringe SC ×2 (09:37→21:27)
[2021-06-02] MEDS: dexAMETHasone 4 MG Tablet 6 MG PO (09:37)
[2021-06-02] MEDS: guaiFENesin 1,200 MG Tablet 1200 MG PO ×2 (09:37→21:27)
--- NOTE | 2021-06-02 09:41 | CASEMGMT ---
Addendum entered by Yin Villa 06/02/21 09:56: SENA received call from Blas at [facility] stating they can accept pt with pt's current oxygen needs. Blas states they can accept pt tomorrow as pt will be out of isolation tomorrow. SENA placed a call to pt's Talita and updated her that [facility] can accept pt tomorrow if pt is medically cleared. Talita states understanding. Plan: [facility] tomorrow skilled Addendum entered by Yin Villa 06/02/21 09:52: SENA updated by RN that pt walked 6-7ft and was around 90% on 10 Liters of oxygen. SENA received call from Blas at [facility] stating they can accept pt. SENA asked Blas about pt's current oxygen requirements and if [facility] can accept still with pt's current oxygen needs. Blas states she will need to check and then call this worker back. Original Note: Social Work Note SENA placed a call to Blas at [facility] and left message regarding referral. Plan: [facility] pending acceptance Yin Villa INTERMODAL OWNER OPERATOR TRUCK DRIVER, BAND TIER
--- NOTE | 2021-06-02 11:18 | CASEMGMT ---
Social Work Note SW received call from Blas at [facility] stating they can accept pt today if pt is medically cleared. SENA spoke with physician. Pt is not medically ready for discharge today. SENA placed a call to Blas at [facility] and left message that pt is not ready for discharge today. Plan: [facility] under convalescent stay when pt is medically cleared Yin Villa POST ACUTE CARE NURSE, SPOT CLEANER
--- NOTE | 2021-06-02 13:13 | PCM.PN.HOSP ---
Subjective Subjective Follow-up on acute hypoxic respiratory failure/acute COVID-19 pneumonia: Patient was seen and examined. He remains on high flow oxygen, 10 L. Patient states that he has been compliant confused. He has been calling his . is concerned about confusion. He is currently on 10 L of oxygen Objective Data Objective Data Vital Signs: Vital Signs Temp Pulse Resp BP Pulse Ox 97.4 F L 94 18 128/82 H 98 06/02/21 09:36 06/02/21 09:36 06/02/21 09:36 06/02/21 09:36 06/02/21 09:36 Oxygen Flow Rate (L/min) [ 6 AMBULATING with Oxygen #3] Oxygen Flow Rate (L/min) [ 4 AMBULATING with Oxygen #2] Oxygen Flow Rate (L/min) [At 4 REST with Oxygen] Oxygen Flow Rate (L/min) [ 2 AMBULATING with Oxygen #1] Oxygen Flow Rate (L/min) 6 Oxygen Delivery Method Nasal Cannula Weight: 65.7 kg Body Mass Index (BMI) 21.9 Intake & Output: Intake and Output for Last 24 Hours 05/31/21 06/01/21 06/02/21 23:59 23:59 23:59 Intake Total 860 / 860 750 / 750 300 / 300 Output Total 250 / 250 150 / 150 Balance 610 / 610 600 / 600 300 / 300 Medical Nutrition Assessment Dietitian: Malnutrition Criteria Met Start: 05/25/21 10:17 Freq: Status: Active Protocol: Document 05/25/21 10:17 AG (Rec: 05/25/21 10:17 [id number]) Nutrition Malnutrition Evidence of Malnutrition Exists Yes Malnutrition (severe): Acute Illness/Injury Evidenced By Suboptimal Energy Intake ( Severe),Weight Loss (Severe) Intake Problem Inadequate Oral Intake Etiology related to fluctuating appetite w/ acute illness Signs/Symptoms as evidenced by estimated PO intake meeting <50% of estimated energy needs Status Active Problem Clinical Problem Acute Disease or Injury Related Malnutrition Etiology severe, acute malnutrition r/t inadequate energy intake w/ acute illness Signs/Symptoms as evidenced by unintentional wt loss of 3.9kg/5.5% x6 days, estimated PO intake meeting < 50% of estimated energy needs x 1 week Status Active Problem Recommendation Dietitian Recommendations/Changes Continue regular diet as ordered. Will add 120mL ensure compact w/ meals for additional calories/protein if consumed. Lab / Micro Data Result Diagrams: 06/02/21 05:59 06/02/21 05:59 Labs: Laboratory Results - last 24 hr 06/01/21 13:03: D-Dimer Quant (PE/DVT) 0.58 H* 06/02/21 05:59: WBC 12.7 H, RBC 3.91 L, Hgb 11.7 L, Hct 35.3 L, MCV 90.3, MCH 29.9, MCHC 33.1, RDW Std Deviation 44.0 H, RDW Coeff of Jan 13.6, Plt Count 350, MPV 10.6, Immature Gran % (Auto) 1.800 H, Neut % (Auto) 68.6, Lymph % (Auto) 17.9 L, [place] % (Auto) 10.5 H, Eos % (Auto) 0.9, Baso % (Auto) 0.3, Absolute Neuts (auto) 8.7 H, Absolute Lymphs (auto) 2.27, Nucleated RBC % 0 06/02/21 05:59: Sodium 142, Potassium 3.7, Chloride 107, Carbon Dioxide 29.0, Anion Gap 6, BUN 30 H, Creatinine 0.85, Estim Creat Clear Calc 78.37, Est GFR (MDRD) Af Amer 115, Est GFR (MDRD) Non-Af 95, BUN/Creatinine Ratio 35.2 H, Glucose 85, Calcium 8.8, Total Bilirubin 0.50, AST 30, ALT 99 H, Alkaline Phosphatase 77, Total Protein 6.5, Albumin 2.3 L, Globulin 4.2, Albumin/Globulin Ratio 0.5 L Micro: Microbiology 05/18/21 09:42 Blood Culture (Wb) - Anticubital Left Blood Culture - Final No growth in 5 days. 05/18/21 08:53 Blood Culture (Wb) - Anticubital Right Blood Culture - Final No growth in 5 days. 05/20/21 07:08 Sputum, Expectorated/Coughed Gram Stain - Final 05/20/21 07:08 Sputum, Expectorated/Coughed Respiratory Culture - Final 05/18/21 08:53 Interface Orders SARS-CoV-2 Antigen (Rapid) - Final SARS-CoV-2 (COVID 19) Radiography Diagnostic Testing: Radiology Impression Chest X-Ray 06/01/21 16:30 IMPRESSION: Findings suspicious for Covid 19 pneumonia more severe in the right lung with improved aeration of the left upper lobe but slightly increased airspace disease in the right lower lobe since previous exam Electronically Signed: Eder Baker MD at 18:07 EST , Service support , Physical Exam Narrative Physical exam: General: Alert, Oriented x3, Cooperative, in mild respiratory distress, on 10 L of oxygen HEENT: Atraumatic Oral: Moist Mucosa Neck: Supple Lungs: Diminished to auscultation Cardiovascular: HS I+II, regular, no murmurs Abdomen: Bowel Sounds Present, Soft, Non Tender Extremities: No edema Assessment & Plan Assessment/Plan (1) Acute respiratory failure with hypoxia: (2) Pneumonia due to COVID-19 virus: (3) Severe malnutrition: PLAN: 1. Acute hypoxic respiratory failure secondary to acute COVID-19 pneumonia, slightly worsening Patient is now on 10 L of oxygen D-dimer is 0.58. Admitting chest x-ray showed bilateral perihilar airspace disease CTA of the chest was negative for acute PE, showed severe bilateral pneumonia Chest x-ray shows progressive COVID Completed Decadron 2. Acute metabolic encephalopathy secondary to #1, will continue to monitor 3. Acute kidney injury, likely prerenal from #1, resolved 4. Severe protein calorie malnutrition secondary to #1, criminal justice instructor consulted, continue supplements 5. DVT PPx- Lovenox BID Charges/Coding Visit Charges Inpatient E&M: 85276 Subs Hosp L2
[2021-06-02 15:02] VITALS: BP 102/66; PULSE 92; RESP 18; TEMP 36.9; O2SAT 95
[2021-06-02 21:18] VITALS: BP 113/65; PULSE 93; RESP 20; TEMP 36.4; O2SAT 94
[2021-06-03 03:15] VITALS: BP 119/70; PULSE 81; RESP 18; TEMP 36.1; O2SAT 98
[2021-06-03 07:03] LABS: Absolute Lymphocyte Count 2.75 X10^3/uL (0.83-4.51); Absolute Neutrophil Count 6.8 X10^3/uL (2.0-7.7); Basophil# 0.03 X10^3/uL; Basophil% 0.3 % (0-1); Eosinophil# 0.26 X10^3/uL; Eosinophils% 2.4 % (0-5); Hematocrit 32.6 % (40-54); Hemoglobin 10.9 g/dL (13.0-16.5); Lymphocyte # 2.75 X10^3/ul (0.83-4.51); Lymphocyte % 25.1 % (19-41); Mean Corp Hgb Conc 33.4 g/dL (32-36); Mean Corpuscular Hgb 30.1 pg (27.0-32.0); Mean Corpuscular Volume 90.1 fL (80-94); Mean Platelet Vol. 10.2 fl (6.2-12.0); Monocyte# 0.93 X10^3/uL; Monocyte% 8.5 % (0-10); NRBC Flagged by Analyzer 0 % (0-5); Neutrophil # 6.77 X10^3/uL (2.7-7.7); Neutrophil % 61.9 % (47-70); Platelet Count 299 K/mm3 (150-450); RBC Distribution Width CV 13.7 % (11.6-14.6); RBC Distribution Width SD 44.2 fl (35.1-43.9); Red Blood Count 3.62 M/mm3 (4.6-6.2); White Blood Count 10.9 K/mm3 (4.4-11.0)
[2021-06-03 07:22] VITALS: O2SAT 97
[2021-06-03 07:33] LABS: ALB/GLOB Ratio 0.7 RATIO (0.9-2.4); AST(SGOT) 30 U/L (15-37); Alanine Aminotransfer ALT/SGPT 107 U/L (16-61); Albumin, Serum 2.3 g/dL (3.2-5.0); Alkaline Phosphatase 71 U/L (45-117); Anion Gap 7 (5-15); BUN 27 mg/dL (7-18); BUN/Creat Ratio 35.4 RATIO (10-20); Calcium,Total 8.5 mg/dL (8.5-10.1); Chloride 106 mmol/L (98-107); Creatinine, Serum 0.76 mg/dL (0.70-1.30); EST Glomerular Filtration Rate 108 mL/min (>60); Est Glom Filt Rate - Afr Amer 131 mL/min (>60); Estimated Creatinine Clearance 66.51 ml/min; Globulin 3.5 g/dL (2.2-4.2); Glucose 83 mg/dL (74-106); Potassium 3.9 mmol/L (3.5-5.1); Protein, Total 5.8 g/dL (6.4-8.2); Sodium Level 138 mmol/L (136-145)
[2021-06-03 09:15] VITALS: BP 102/63; PULSE 100; RESP 18; TEMP 36.4; O2SAT 93
[2021-06-03] MEDS: Enoxaparin 30 MG/0.3 ML Syringe SC ×2 (10:25→20:30)
[2021-06-03] MEDS: guaiFENesin 1,200 MG Tablet 1200 MG PO ×2 (10:25→20:30)
--- NOTE | 2021-06-03 11:20 | CASEMGMT ---
Addendum entered by Yin Villa 06/03/21 12:07: SENA received call from pt's Talita stating she was told pt would go to [facility] today, wanted an update. SENA informed Talita that pt needs tested again for oxygen while walking and that will determine if pt can discharge to [facility] today or not. SENA informed Talita that this worker will keep Talita updated on when pt is discharged. Talita states understanding. Original Note: Social Work Note SENA received call from Blas at [facility] asking for update on pt. SENA informed pt that currently pt is on 5-6 liters of Oxygen, pt will need another walking pulse ox test to determine pt's oxygen needs ambulating. SENA informed Blas that this worker will update her when pt's walking pulse ox test is completed. Blas states understanding. Plan: [facility] skilled when medically cleared Yin Villa ATTENDANT CHILDREN'S INSTITUTION, GRAVEDIGGER
--- NOTE | 2021-06-03 13:08 | PN.HOSP_ITS ---
Subjective Subjective Follow-up on acute hypoxic respiratory failure/acute COVID-19 pneumonia: Patient was seen and examined. Patient is on 6L oxygen. He states he is not confused today. He feels improved. Objective Data Objective Data Vital Signs: Vital Signs Temp Pulse Resp BP Pulse Ox 97.5 F L 100 18 102/63 93 06/03/21 09:15 06/03/21 09:15 06/03/21 09:15 06/03/21 09:15 06/03/21 09:15 Oxygen Flow Rate (L/min) [ 6 AMBULATING with Oxygen #3] Oxygen Flow Rate (L/min) [ 4 AMBULATING with Oxygen #2] Oxygen Flow Rate (L/min) [At 4 REST with Oxygen] Oxygen Flow Rate (L/min) [ 2 AMBULATING with Oxygen #1] Oxygen Flow Rate (L/min) 6 Oxygen Delivery Method Nasal Cannula Weight: 65.6 kg Body Mass Index (BMI) 21.9 Intake & Output: Intake and Output for Last 24 Hours 06/01/21 06/02/21 06/03/21 23:59 23:59 23:59 Intake Total 750 / 750 700 / 700 600 / 600 Output Total 150 / 150 Balance 600 / 600 700 / 700 600 / 600 Medical Nutrition Assessment Dietitian: Malnutrition Criteria Met Start: 05/25/21 10:17 Freq: Status: Active Protocol: Document 05/25/21 10:17 (Rec: 05/25/21 10:17 [id number]) Nutrition Malnutrition Evidence of Malnutrition Exists Yes Malnutrition (severe): Acute Illness/Injury Evidenced By Suboptimal Energy Intake ( Severe),Weight Loss (Severe) Intake Problem Inadequate Oral Intake Etiology related to fluctuating appetite w/ acute illness Signs/Symptoms as evidenced by estimated PO intake meeting <50% of estimated energy needs Status Active Problem Clinical Problem Acute Disease or Injury Related Malnutrition Etiology severe, acute malnutrition r/t inadequate energy intake w/ acute illness Signs/Symptoms as evidenced by unintentional wt loss of 3.9kg/5.5% x6 days, estimated PO intake meeting < 50% of estimated energy needs x 1 week Status Active Problem Recommendation Dietitian Recommendations/Changes Continue regular diet as ordered. Will add 120mL ensure compact w/ meals for additional calories/protein if consumed. Lab / Micro Data Result Diagrams: 06/03/21 06:30 06/03/21 06:30 Labs: Laboratory Results - last 24 hr 06/03/21 06:30: WBC 10.9, RBC 3.62 L, Hgb 10.9 L, Hct 32.6 L, MCV 90.1, MCH 30.1, MCHC 33.4, RDW Std Deviation 44.2 H, RDW Coeff of Jan 13.7, Plt Count 299, MPV 10.2, Immature Gran % (Auto) 1.800 H, Neut % (Auto) 61.9, Lymph % (Auto) 25.1, [place] % (Auto) 8.5, Eos % (Auto) 2.4, Baso % (Auto) 0.3, Absolute Neuts (auto) 6.8, Absolute Lymphs (auto) 2.75, Nucleated RBC % 0 06/03/21 06:30: Sodium 138, Potassium 3.9, Chloride 106, Carbon Dioxide 25.0, Anion Gap 7, BUN 27 H, Creatinine 0.76, Estim Creat Clear Calc 66.51, Est GFR (MDRD) Af Amer 131, Est GFR (MDRD) Non-Af 108, BUN/Creatinine Ratio 35.4 H, Glucose 83, Calcium 8.5, Total Bilirubin 0.40, AST 30, ALT 107 H, Alkaline Phosphatase 71, Total Protein 5.8 L, Albumin 2.3 L, Globulin 3.5, Albumin/Globulin Ratio 0.7 L Micro: Microbiology 05/18/21 09:42 Blood Culture (Wb) - Anticubital Left Blood Culture - Final No growth in 5 days. 05/18/21 08:53 Blood Culture (Wb) - Anticubital Right Blood Culture - Final No growth in 5 days. 05/20/21 07:08 Sputum, Expectorated/Coughed Gram Stain - Final 05/20/21 07:08 Sputum, Expectorated/Coughed Respiratory Culture - Final 05/18/21 08:53 Interface Orders SARS-CoV-2 Antigen (Rapid) - Final SARS-CoV-2 (COVID 19) Physical Exam Narrative Physical exam: General: Alert, Oriented x3, Cooperative, in mild respiratory distress, on 6 L of oxygen HEENT: Atraumatic Oral: Moist Mucosa Neck: Supple Lungs: Diminished to auscultation Cardiovascular: HS I+II, regular, no murmurs Abdomen: Bowel Sounds Present, Soft, Non Tender Extremities: No edema Assessment & Plan Assessment/Plan (1) Acute respiratory failure with hypoxia: (2) Pneumonia due to COVID-19 virus: (3) Severe malnutrition: PLAN: 1. Acute hypoxic respiratory failure secondary to acute COVID-19 pneumonia, slightly worsening Patient is on 6 L of oxygen D-dimer is 0.58. Admitting chest x-ray showed bilateral perihilar airspace disease CTA of the chest was negative for acute PE, showed severe bilateral pneumonia Chest x-ray shows progressive COVID Completed Decadron 2. Acute metabolic encephalopathy secondary to #1, will continue to monitor 3. Acute kidney injury, likely prerenal from #1, resolved 4. Severe protein calorie malnutrition secondary to #1, customer service driver consulted, continue supplements 5. DVT PPx- Lovenox BID Charges/Coding Visit Charges Inpatient E&M: 15641 Subs Hosp L2
[2021-06-03 13:37] VITALS: O2SAT 87; O2SAT 88; O2SAT 89; O2SAT 92
[2021-06-03 13:57] VITALS: BP 111/73; PULSE 118; RESP 20; TEMP 36.4; O2SAT 93
--- NOTE | 2021-06-03 15:13 | CHAPLAIN ---
Type of Pastoral Visit ___ Initial Visit ___ Follow-up Visit ___ On-call Visit ___ General Patient Visit ___ Spiritual Assessment ___ Family Conference ___ Bereavement ___ Rapid Response ___ Code Blue ___ Other (describe below) Pastoral Care Referral From ___ Patient ___ Family ___ Nurse ___ Physician ___ Physician'S Aide ___ Director Of Scientific Research ___ Other (describe below) Sacrament/Intervention ___ Active listening ___ Anointing ___ Temple ___ Bereavement ___ Communion ___ Ina exploration ___ ___ Life review ___ Prayer ___ Reconciliation ___ Sacrament of Sick ___ Supportive presence ___ Wedding ___ Other (describe below) Pastoral Comments phone call made into isolation room and there was no answer and no ability to leave a message
--- NOTE | 2021-06-03 15:32 | CASEMGMT ---
Addendum entered by Yin Villa 06/03/21 16:49: SW placed a call to pt's Talita and updated her that pt will not discharge to [facility] today, hopefully tomorrow. Talita states understanding. Original Note: Social Work Note Pt is not medically ready for discharge today, likely ready tomorrow. SENA placed a call to Blas at [facility] and updated her. Plan: [facility] skilled when medically cleared Yin Villa SKEIN MERCERIZING MACHINE OPERATOR, DRUG COORDINATOR
[2021-06-03 20:28] VITALS: BP 102/73; PULSE 96; RESP 18; TEMP 36.9; O2SAT 98
[2021-06-04] VITALS (10 sets, daily range): BP systolic 107–126; BP diastolic 70–80; PULSE 70–110; RESP 18–20; TEMP 36.3–36.9; O2SAT 83–98
[2021-06-04 06:42] LABS: Absolute Lymphocyte Count 1.48 X10^3/uL (0.83-4.51); Absolute Neutrophil Count 4.6 X10^3/uL (2.0-7.7); Basophil# 0.04 X10^3/uL; Basophil% 0.5 % (0-1); Eosinophil# 0.22 X10^3/uL; Hematocrit 32.6 % (40-54); Hemoglobin 10.5 g/dL (13.0-16.5); Lymphocyte # 1.48 X10^3/ul (0.83-4.51); Lymphocyte % 20.3 % (19-41); Mean Corp Hgb Conc 32.2 g/dL (32-36); Mean Corpuscular Hgb 29.8 pg (27.0-32.0); Mean Corpuscular Volume 92.6 fL (80-94); Mean Platelet Vol. 10.3 fl (6.2-12.0); Monocyte# 0.78 X10^3/uL; Monocyte% 10.7 % (0-10); NRBC Flagged by Analyzer 0 % (0-5); Neutrophil # 4.64 X10^3/uL (2.7-7.7); Neutrophil % 63.9 % (47-70); Platelet Count 267 K/mm3 (150-450); RBC Distribution Width CV 13.9 % (11.6-14.6); RBC Distribution Width SD 46.1 fl (35.1-43.9); Red Blood Count 3.52 M/mm3 (4.6-6.2); White Blood Count 7.3 K/mm3 (4.4-11.0)
[2021-06-04 07:11] LABS: BUN 25 mg/dL (7-18); BUN/Creat Ratio 32.7 RATIO (10-20); Creatinine, Serum 0.76 mg/dL (0.70-1.30); EST Glomerular Filtration Rate 108 mL/min (>60); Est Glom Filt Rate - Afr Amer 131 mL/min (>60); Estimated Creatinine Clearance 68.44 ml/min; Globulin 3.7 g/dL (2.2-4.2); Glucose 78 mg/dL (74-106); Protein, Total 5.7 g/dL (6.4-8.2)
[2021-06-04 07:12] LABS: ALB/GLOB Ratio 0.5 RATIO (0.9-2.4); AST(SGOT) 24 U/L (15-37); Alanine Aminotransfer ALT/SGPT 87 U/L (16-61); Alkaline Phosphatase 73 U/L (45-117); Anion Gap 4 (5-15); Calcium,Total 8.3 mg/dL (8.5-10.1); Chloride 109 mmol/L (98-107); Sodium Level 141 mmol/L (136-145)
--- NOTE | 2021-06-04 09:20 | CASEMGMT ---
Social Work Note SENA faxed completed discharge paperwork to [facility] including transfer to extended care, signed medication list, any scripts, COVID test/tool, and Convalescent 7000. Original in SNF folder and copy on pt's chart. SENA completed convalescent 7000 in HENS. Original in SNF folder and copy on pt's chart. SW updated that pt was complaining of chest pain, will get EKG and check troponin. If all checks out, pt will still discharge to SNF today. SW to continue to follow. Plan: [facility] skilled Yin Villa OUTPATIENT CLERK, GEOSCIENCES FACULTY MEMBER
--- NOTE | 2021-06-04 09:25 | TREXTCAR_ITS ---
Diet 05/18/21 19:01 Diet: Regular - General Food consistency:: Regular Liquid Consistency:: Regular/Thin Type of Dietary Supplement:: Ensure Compact Diet Comments: Ensure compact TID w/ meals Routine Orders/Code Status O2 Liters per Minute: 5 O2 Frequency: Continuous Keep PO Greater than or Equal to (%): 94 Routine Lab Work: CBC (within 3 days) and BMP (within 3 days) Code Status: Full Code Therapies Weight Bearing: Weight bearing as tolerated Physical Therapy: Eval and Treat Occupational Therapy: Eval and Treat Problem/Diagnosis (1) Acute respiratory failure with hypoxia: Status: Acute (2) Pneumonia due to COVID-19 virus: Status: Acute (3) Severe malnutrition: Status: Acute Allergies/Procedures Done in Hospital Allergies No Known Allergies Allergy (Verified 05/18/21 08:51) Type of Care/Length of Stay Estimated LOS: Convalescent Care Less Than 30 days Type of Care Needed: Skilled Rehab Potential: Good Prognosis: Good Additional Orders/Day of Discharge Day of Discharge: 06/04/21 Dietary and Speech Recommendations Dietitian Recommendations/Changes: Continue regular diet and 120mL ensure compact w/ meals for additional calories/protein if consumed. Discharge Plan Admission Admit Date/Time: 05/18/21 14:59 Primary Reason for Your Visit: Acute hypoxic respiratory failure/Acute COVID-19 pneumonia Attending Provider: Dania Cuellar Primary Care Provider: [facility] Sabrina Perez Discharge Orders/Prescriptions Prescriptions: New acetaminophen [Tylenol] 325 mg Tablet 650 mg PO Q6H PRN PRN (Reason: Pain Score 1-10/Temp > 100.7 F) Qty: 0 RF: 0 albuterol sulfate [Ventolin HFA] 90 mcg/actuation Hfa Aerosol Inhaler 2 puff inhalation Q4H PRN PRN (Reason: WHEEZING) Qty: 0 RF: 0 Mucus Relief ER 1,200 mg Tablet Extended Release 12hr 1,200 mg PO BID Qty: 0 RF: 0 Referrals / Follow Up: [facility] Sabrina Perez [Primary Care Provider] - Within 2 Weeks Disposition Disposition (needs filled in before D/C Order can be placed): Senior Living Facility
--- NOTE | 2021-06-04 09:27 | CASEMGMT ---
Social Work Note Pt has discharge in for today. SW placed a call to Blas at [facility] and updated her on discharge today. Plan: [facility] skilled Yin Villa BOOSTER PUMP OPERATOR, LINUX PROGRAMMER
--- NOTE | 2021-06-04 09:29 | DS.PCM_ITS ---
Providers Date of Admission: 05/18/21 Date of Discharge: 06/04/21 Primary Care Physician: Sabrina [facility] Reason For Visit: COVID Diagnosis Discharge Diagnosis (1) Acute respiratory failure with hypoxia: Status: Acute Code(s): J96.01 - Acute respiratory failure with hypoxia (2) Pneumonia due to COVID-19 virus: Status: Acute Code(s): U07.1 - COVID-19; J12.82 - Pneumonia due to coronavirus disease 2019 (3) Severe malnutrition: Status: Acute Code(s): E43 - Unspecified severe protein-calorie malnutrition Medications at Discharge Home Medications acetaminophen [Tylenol] 650 mg PO Q6H PRN PRN #0 tab 06/04/21 albuterol sulfate [Ventolin HFA] 2 puff INHALATION Q4H PRN PRN #0 g 06/04/21 guaifenesin [Mucus Relief ER] 1,200 mg PO BID #0 tab 06/04/21 Hospital Course Operations None Procedures None Summary of Care Provided Minutes Spent on Discharge: 40 Hospital Course: 65 y/o male who presented with progressive shortness of breath and chest discomfort. Patient is unvaccinated against acute COVID-19. His symptoms have been going on for 3 days prior to admission. He was admitted to the [facility] floor and managed as acute hypoxic respiratory failure secondary to COVID-19. He also had acute kidney injury with creatinine of 2.21. Patient's was started on dexamethasone, and IV fluids. His kidney function improved. Patient completed his dexamethasone was in the hospital. He had also completed a course of remdesivir after his kidney function had improved. He had evidence of severe malnutrition, dietitian was consulted, managed on supplements. He did require high flow oxygen at some point in his hospital stay. Patient was seen by PT and OT and skilled for discharge to [facility] facility. Physical Exam Narrative Physical exam: General: Alert, Oriented x3, Cooperative, in mild respiratory distress, on 5 L of oxygen HEENT: Atraumatic Oral: Moist Mucosa Neck: Supple Lungs: Diminished to auscultation Cardiovascular: HS I+II, regular, no murmurs Abdomen: Bowel Sounds Present, Soft, Non Tender Extremities: No edema Medical Records Data Medical Nutrition Assessment Dietitian: Malnutrition Criteria Met Start: 05/25/21 10:17 Freq: Status: Active Protocol: Document 06/03/21 15:30 RMA (Rec: 06/03/21 15:30 RMA [id number]) Nutrition Malnutrition Evidence of Malnutrition Exists Yes Malnutrition (severe): Acute Illness/Injury Evidenced By Suboptimal Energy Intake ( Severe),Weight Loss (Severe) Intake Problem Inadequate Oral Intake Etiology related to fluctuating appetite w/ acute illness Signs/Symptoms as evidenced by estimated PO intake meeting <50% of estimated energy needs Status Active Problem Clinical Problem Acute Disease or Injury Related Malnutrition Etiology severe, acute malnutrition r/t inadequate energy intake w/ acute illness Signs/Symptoms as evidenced by unintentional wt loss of 3.9kg/5.5% x6 days, estimated PO intake meeting < 50% of estimated energy needs x 1 week Status Active Problem Recommendation Dietitian Recommendations/Changes Continue regular diet and 120mL ensure compact w/ meals for additional calories/ protein if consumed. Weight / BMI Weight Weight: 67.5 kg Body Mass Index (BMI) 21.9 ABG / Lab / Microbiology Data Result Diagrams: 06/04/21 05:52 06/04/21 05:52 Laboratory: Laboratory Results - last 24 hr 06/04/21 05:52: WBC 7.3, RBC 3.52 L, Hgb 10.5 L, Hct 32.6 L, MCV 92.6, MCH 29.8, MCHC 32.2, RDW Std Deviation 46.1 H, RDW Coeff of Jan 13.9, Plt Count 267, MPV 10.3, Immature Gran % (Auto) 1.600 H, Neut % (Auto) 63.9, Lymph % (Auto) 20.3, Wetzel % (Auto) 10.7 H, Eos % (Auto) 3.0, Baso % (Auto) 0.5, Absolute Neuts (auto) 4.6, Absolute Lymphs (auto) 1.48, Nucleated RBC % 0 06/04/21 05:52: Sodium 141, Potassium 4.0, Chloride 109 H, Carbon Dioxide 28.0, Anion Gap 4 L, BUN 25 H, Creatinine 0.76, Estim Creat Clear Calc 68.44, Est GFR (MDRD) Af Amer 131, Est GFR (MDRD) Non-Af 108, BUN/Creatinine Ratio 32.7 H, Glucose 78, Calcium 8.3 L, Total Bilirubin 0.60, AST 24, ALT 87 H, Alkaline Phosphatase 73, Total Protein 5.7 L, Albumin 2.0 L, Globulin 3.7, Albumin/Globulin Ratio 0.5 L Microbiology: Microbiology 05/18/21 09:42 Blood Culture (Wb) - Anticubital Left Blood Culture - Final No growth in 5 days. 05/18/21 08:53 Blood Culture (Wb) - Anticubital Right Blood Culture - Final No growth in 5 days. 05/20/21 07:08 Sputum, Expectorated/Coughed Gram Stain - Final 05/20/21 07:08 Sputum, Expectorated/Coughed Respiratory Culture - Final 05/18/21 08:53 Interface Orders SARS-CoV-2 Antigen (Rapid) - Final SARS-CoV-2 (COVID 19) D/C Instructions Discharge Diet: No restrictions Meaningful Use Info Meaningful Use Diagnoses (Choose all that apply): None applicable Discharge Plan Admission Admit Date/Time: 05/18/21 14:59 Primary Reason for Your Visit: Acute hypoxic respiratory failure/Acute COVID-19 pneumonia Attending Provider: Dania Cuellar Primary Care Provider: [facility] Sabrina Perez Discharge Orders/Prescriptions Prescriptions: New acetaminophen [Tylenol] 325 mg Tablet 650 mg PO Q6H PRN PRN (Reason: Pain Score 1-10/Temp > 100.7 F) Qty: 0 RF: 0 albuterol sulfate [Ventolin HFA] 90 mcg/actuation Hfa Aerosol Inhaler 2 puff inhalation Q4H PRN PRN (Reason: WHEEZING) Qty: 0 RF: 0 Mucus Relief ER 1,200 mg Tablet Extended Release 12hr 1,200 mg PO BID Qty: 0 RF: 0 Referrals / Follow Up: [facility] Sabrina Perez [Primary Care Provider] - Within 2 Weeks Disposition Disposition (needs filled in before D/C Order can be placed): Alf Facility Charges/Coding Visit Charges Inpatient E&M: 31307 Disch Hosp
[2021-06-04] MEDS: Enoxaparin 30 MG/0.3 ML Syringe SC (09:35)
[2021-06-04] MEDS: guaiFENesin 1,200 MG Tablet 1200 MG PO (09:36)
[2021-06-04] MEDS: Furosemide 40 MG/4 ML Vial IV (09:43)
--- NOTE | 2021-06-04 10:55 | EKG12_ITS ---
Test Reason : CHEST PAIN Blood Pressure : / mmHG Vent. Rate : 107 BPM Atrial Rate : 107 BPM P-R Int : 134 ms QRS Dur : 092 ms QT Int : 336 ms P-R-T Axes : 027 001 024 degrees QTc Int : 448 ms Sinus tachycardia Inferior infarct , age undetermined Abnormal ECG When compared with ECG of 18-MAY-2021 08:54, Inferior infarct is now Present Confirmed by MIKE MCDOWELL, TAO ([id number]), editor department CHANTELL CHAVEZ ([id number]) on 06/09/2021 10:12:08 AM Referred By: FORTINO Confirmed By:TAO MCKEON MD
[2021-06-04 11:58] LABS: Troponin-I HS 6 pg/mL (3.0-78.0)
[2021-06-04 15:05] LABS: Troponin-I HS 5 pg/mL (3.0-78.0)
--- NOTE | 2021-06-04 16:25 | CASEMGMT ---
Social Work Note SW checked with RN and physician, pt is stable to discharge to [facility]. SENA spoke with RN, pt to transport via wheelchair van. SW accessed trip assist and arranged transportation wheelchair van at 7:30pm. Transportation form completed and placed on SNF folder and copy on pt's chart. SW updated RN on transportation time. SENA placed a call to Blas at [facility] and left message updating her on transportation time. SW in to speak with pt and pt's Talita present in room. SW updated pt and Talita on discharge and transportation time to [facility]. Pt and Talita states understanding. Pt is still in Isolation, SENA Checked with construction site manager. Pt doens't need to be in COVID isolation anymore. Plan: [facility] skilled under convalescent stay with physician's transporting pt via wheelchair van at 7:30pm Yin RIDER, STRINGED INSTRUMENT ASSEMBLER
[2021-06-04 17:50] LABS: Troponin-I HS 6 pg/mL (3.0-78.0)
== END 2021-06-04 19:25 | DRG 177 ==
LOC: ED 14:25 → MS3 16:34
PROVIDERS: Internal Medicine; Student in an Organized Health Care Education/Training Program; Admitting Provider Family Medicine; Emergency Provider Emergency Medicine; Visit Provider Internal Medicine
DX: U07.1 COVID-19 (principal); J12.82 Pneumonia due to coronavirus disease 2019; J96.01 Acute respiratory failure with hypoxia; J15.9 Unspecified bacterial pneumonia; E43 Unspecified severe protein-calorie malnutrition; G93.41 Metabolic encephalopathy; N17.9 Acute kidney failure, unspecified; E87.2 Acidosis; E87.8 Other disorders of electrolyte and fluid balance, not elsewhere classified; F17.210 Nicotine dependence, cigarettes, uncomplicated; Z68.21 Body mass index [BMI] 21.0-21.9, adult; Z28.3 Underimmunization status
CPT/HCPCS: 36415; 71045; 71275; 80048; 80053; 80202; 83605; 84484; 85025; 85027; 85379; 87040; 87070; 87205; 87426; 93005; 94640; 94667; 94668; 94762; 97110; 97163; 97166; 97530; 97535; 99251; 99285; J7030; J7050; Q9967; A4216; G0463; J0295; J1940

== ENCOUNTER 2021-06-06 15:22 | Emergency (ER) | payer MEDICARE, MEDICAID, SELFPAY ==
[2021-06-06] VITALS (13 sets, daily range): BP systolic 90–130; BP diastolic 56–68; PULSE 66–83; RESP 15–30; TEMP 36.3–37.3; O2SAT 78–100; BMI 21.0
--- NOTE | 2021-06-06 15:37 | CT_ITS ---
INDICATION: altered mental status EXAMINATION: CT BRAIN - CT Head or Brain W/O Contrast Injection TECHNIQUE: Multiple axial images were obtained of the head without intravenous contrast. A radiation dose optimization technique was used for this scan. IV Contrast dosage and agent: None. COMPARISON: No previous for comparison FINDINGS: FINDINGS: HEMISPHERES: 1. The cerebral parenchyma, ventricular system, subarachnoid spaces have normal configuration, there are mild involutional changes and minimal chronic microvascular deep white matter disease. 2. Incidental note of a subtle cavum pellucidum 3. The hemispheric white matter has normal appearance. 4. No intraparenchymal mass, hemorrhage, or acute territorial infarct. CEREBELLUM - BRAINSTEM: The cerebellum, brainstem, basilar and suprasellar cisterns have normal appearance. No Chiari malformation. PITUITARY: Infundibulum and pituitary have normal configuration. Midline structures appear normal. CSF SPACES: Appropriate for age. No hydrocephalus. Basal cisterns are patent. VESSELS: 1. Moderate vascular calcifications throughout the cavernous carotid vessels bilaterally. 2. No hyperdense vascular signs noted.. ORBITS AND PARANASAL SINUSES: 1. Normal appearance of the bony orbits. Normal appearance of the globes and retrobulbar soft tissues.. 2. Paranasal sinuses are clear. BONY ELEMENTS: Bony elements of the cranial vault, facial skeleton and skull base have normal appearance. SCALP AND SOFT TISSUES: Normal appearance of the soft tissues of the scalp and the visualized face OTHER: None ASPECTS Score for Acute Strokes: 10 CT/Brain/Head without Contrast IMPRESSION: 1. Mild involutional changes and minimal chronic microvascular deep white matter disease. 2. No intracranial mass, hemorrhage or acute territorial infarct. 3. No radiographically significant disease. Electronically Signed: Xavier Loyd MD at 17:16 EST Tel , Service support ,
--- NOTE | 2021-06-06 15:37 | CT_ITS ---
INDICATION: abd tenderness, altered mental status EXAMINATION: CT ABDOMEN AND PELVIS with CONTRAST - CT Abdomen And Pelvis W/ Contrast Injection TECHNIQUE: Multiple axial images were obtained of the abdomen following administration of IV contrast. Planar reconstructions obtained. A radiation dose optimization technique was used for this scan. IV Contrast dosage and agent: 75 mL is Isovue-370 Oral contrast: None. Radiation Dose (provided by facility) CTDIvol (15.56 ) mGy, DLP ( 1687.23) mGy-cm COMPARISON: None. FINDINGS: LOWER THORAX: Diffuse bibasilar interstitial and groundglass infiltrate with areas of consolidation noted. No effusion. HEPATOBILIARY: Liver: Liver has normal size and configuration. There is a subcapsular cyst along the lateral aspect of the RIGHT hepatic lobe measuring approximately 9 x 10 mm in size. No other intrahepatic lesions noted.. Gallbladder: The gallbladder is unremarkable. Pancreas: Pancreas is normal size configuration and density. No mass is noted. Spleen: The spleen is homogeneous and normal in size. . BOWEL: Stomach: The stomach is normal in size configuration, no evidence of focal masses, abnormal calcifications. No hiatal hernia noted. Bowel: Small and large have normal configuration, no masses or bowel obstruction noted. Appendix: The visualized appendix has normal appearance.: GENITOURINARY: Adrenals: Both adrenal glands are normal in size. Kidneys: Kidneys appear symmetric in size. No calcifications are seen in the collecting system. There is no hydronephrosis or surrounding fluid. Moderate size LEFT renal cysts are present, largest measuring approximately 1.9 x 2.4 cm size, no solid masses. No calcifications or hydronephrosis. Bladder: Bladder is moderately distended. Pelvic organs: Prostate is mildly prominent measuring approximately 5.4 x 4.2 cm in size. RETROPERITONEUM: Scattered vascular calcification is are present, no evidence of aneurysmal dilatation or dissection. LYMPH NODES: No evidence of retroperitoneal or para-aortic masses fluid collections or adenopathy. PERITONEAL CAVITY: No ascites noted ANTERIOR ABDOMINAL WALL: Normal, no hernia identified. BONES AND SOFT TISSUES: The skeleton shows no evidence for fractures or destructive lesions. OTHER: None CT/Abdomen/Pelvis W IV Cont ONLY IMPRESSION: 1. No evidence masses bowel obstruction abscess free fluid or free air. No evidence diverticulitis. Normal appendix is noted. 2. LEFT renal cysts are noted, no renal masses, calcifications or evidence of obstructive uropathy. 3. Incidental note of a subcapsular cyst in the RIGHT hepatic lobe. 4. Diffuse bibasilar multi lobar infiltrate/pneumonia. Electronically Signed: Xavier Loyd MD at 17:40 EST Tel , Service support ,
--- NOTE | 2021-06-06 15:37 | CT_ITS ---
STUDY: CTA CHEST REASON FOR EXAM: Male, 65 years old. sob, hypoxia, altered mental status, recent covid -- r/o PE RADIATION DOSAGE (If Supplied By Facility): CTDIvol = ( 15.56 ) mGy, DLP = ( 1687.23 ) mGycm TECHNIQUE: The examination was performed with the intravenous administration of IV 75mL Isovue-370. Post-processing of the angiographic images was performed, with multiplanar reformation and 3D reconstruction. Individualized dose optimization techniques were used for this CT. COMPARISON: None. FINDINGS: Lines and tubes: 1. No life-support noted. CTA: PULMONARY ARTERIES: There is normal configuration and contrast opacification of pulmonary outflow tract, main pulmonary arteries, segmental and intersegmental pulmonary arteries bilaterally without evidence of intraluminal filling defects. AORTIC ARCH: The aortic arch and descending aorta have normal configuration. No evidence of dissection or aneurysmal dilatation. HEART: Cardiac contour is upper limit of normal. Scattered coronary vascular calcifications present. No pericardial effusion. CT CHEST: LUNGS: [Extensive diffuse interstitial and groundglass infiltrate bilaterally with areas of developing consolidation particularly at the lung bases. Scattered areas of subpleural emphysematous changes particularly at the lung apices.. No mass. No consolidation. PLEURAL SPACES: Unremarkable, no effusion or pneumothorax.. MEDIASTINUM AND LYMPH NODES: Unremarkable. No significant adenopathy. BONES: Unremarkable ABDOMEN: Within normal limits. Other: None IMPRESSIONS: 1. No CTA evidence of pulmonary embolism. 2. No CTA evidence of aortic aneurysm or dissection 3. Cardiac contours are upper limit of normal, coronary vascular calcifications are present. No pericardial effusion. 4. Extensive diffuse multi lobar interstitial and groundglass infiltrate/pneumonia, consistent with atypical viral pneumonia. Electronically Signed: Xavier Loyd MD at 17:35 EST Tel , Service support , CT/CTA Chest W/WO Contrast
--- NOTE | 2021-06-06 15:38 | EKG12_ITS ---
Test Reason : SOB Blood Pressure : / mmHG Vent. Rate : 060 BPM Atrial Rate : 060 BPM P-R Int : 148 ms QRS Dur : 100 ms QT Int : 444 ms P-R-T Axes : -09 021 026 degrees QTc Int : 444 ms Normal sinus rhythm Normal ECG Confirmed by MIKE MCDOWELL, TAO ([id number]), index editor CHANTELL CHAVEZ ([id number]) on 06/09/2021 9:45:41 AM Referred By: BB Confirmed By:TAO MCKEON MD
--- NOTE | 2021-06-06 15:40 | EX.ED.DYSGE1 ---
HPI History of Present Illness Chief Complaint: Shortness of Breath Informant: EMS and SNF Limited: other (confused) Narrative Narrative: Patient was admitted on 05 21 here at this hospital for Covid pneumonitis, he was discharged to a local care home 2 days ago on 5 L of oxygen, timing of the change is unknown but apparently the patient has been altered, agitated, appearing to be short of breath at times, and having episodes of staring off and being unresponsive. He was noted to be 75% on his 5 L of oxygen via nasal cannula at the care home. Here upon arrival, EMS had about a nonrebreather, the patient aggressively ripped it off of his face, and according to nursing immediately desatted to the low 70s before they were able to get back on him. At this time he has on a 6L nasal cannula and he is in the 90s. [facility] Medical History (Updated 06/07/21 @ 02:[address] Anival Neves MD) Acute respiratory failure with hypoxia LIBIA (acute kidney injury) Aspiration pneumonia Pneumonia due to COVID-19 virus Severe malnutrition Home Medications acetaminophen [Tylenol] 650 mg PO Q6H PRN PRN #0 tab 06/04/21 [Rx Last Taken Unknown] albuterol sulfate [Ventolin HFA] 2 puff INHALATION Q4H PRN PRN #0 g 06/04/21 [Rx Last Taken Unknown] guaifenesin [Mucus Relief ER] 1,200 mg PO BID #0 tab 06/04/21 [Rx Last Taken Unknown] bisacodyl [Biscolax] 10 mg UT DAILY PRN 06/06/21 [History Last Taken Unknown] Allergy/AdvReac Type Severity Reaction Status Date / Time No Known Allergies Allergy Verified 05/18/21 08:51 Family History (Updated 05/18/21 @ 15:[address] Tommy Sousa MD) Other Cancer Social History Smoking Status: Current every day smoker tobacco type: cigarettes EXAM Physical Exam Const Vital Signs: 06/06/21 15:26 06/06/21 15:30 06/06/21 15:32 Temperature 97.7 F L Temperature Source Oral Pulse Rate 71 Respiratory Rate 24 H Respiratory Depth Respiratory Pattern Blood Pressure 130/64 H Blood Pressure Mean 86 Pulse Ox 95 78 98 Oxygen Delivery Method Non-Rebreather Room Air Non-Rebreather Oxygen Flow Rate (L/min) 15 15 06/06/21 15:38 06/06/21 15:40 06/06/21 15:55 Temperature 97.9 F Temperature Source Temporal Pulse Rate 74 Respiratory Rate 30 H Respiratory Depth Respiratory Pattern Blood Pressure 109/68 Blood Pressure Mean 81 Pulse Ox 90 94 96 Oxygen Delivery Method Nasal Cannula Nasal Cannula Nasal Cannula Oxygen Flow Rate (L/min) 6 6 6 06/06/21 16:08 06/06/21 16:10 06/06/21 17:33 Temperature 97.9 F 99.2 F H Temperature Source Oral Temporal Pulse Rate 83 Respiratory Rate 17 Respiratory Depth Shallow Respiratory Pattern Tachypnea Blood Pressure 90/56 L Blood Pressure Mean 67 Pulse Ox 100 Oxygen Delivery Method Nasal Cannula Nasal Cannula Nasal Cannula Oxygen Flow Rate (L/min) 6 6 6 06/06/21 17:34 06/06/21 18:00 06/06/21 20:15 Temperature 99.2 F H 98.6 F 97.3 F L Temperature Source Temporal Temporal Temporal Pulse Rate 66 68 Respiratory Rate 15 18 Respiratory Depth Respiratory Pattern Blood Pressure 111/67 98/61 Blood Pressure Mean 81 73 Pulse Ox 100 96 Oxygen Delivery Method Nasal Cannula Nasal Cannula Oxygen Flow Rate (L/min) 6 3 06/06/21 22:42 06/06/21 23:28 06/07/21 00:05 Temperature 97.8 F 98.6 F Temperature Source Temporal Temporal Pulse Rate 70 66 70 Respiratory Rate 16 16 27 H Respiratory Depth Respiratory Pattern Blood Pressure 91/59 L 106/64 103/60 Blood Pressure Mean 69 78 74 Pulse Ox 96 94 97 Oxygen Delivery Method Nasal Cannula Nasal Cannula CPAP Oxygen Flow Rate (L/min) 3 3 06/07/21 01:03 Temperature Temperature Source Pulse Rate 80 Respiratory Rate 21 H Respiratory Depth Respiratory Pattern Blood Pressure 106/73 Blood Pressure Mean 84 Pulse Ox 94 Oxygen Delivery Method Nasal Cannula Oxygen Flow Rate (L/min) 6 Positive well nourished and well developed General Appearance ED: well developed and NAD HEENT Reports dry mucous membranes normocephalic and atraumatic Mouth ED: Yes dry mucous membranes Mouth: dry mucous membranes Eyes PERRL and EOMs intact bilaterally Neck full ROM and supple Resp normal respiratory effort and clear to auscultation bilaterally Cardio regular rate, regular rhythm and no murmurs GI non-distended GI Narrative: With palpation, patient guards, does another episode of moaning and spitting up, followed by another attempt to palpate when he starts screaming out loud. Exam nonfocal here. Auscultation: normoactive bowel sounds Back/Spine no CVA tenderness General Back: other FROM Extremity no pedal edema Extremity Narrative: Normal to inspection except for chronic onychomycosis all nails of both feet General Extremety ED: Negative for edema, pulses abnormal or tenderness General Extremity: Negative for edema or pulses abnormal Neuro CN's II-XII intact bilaterally and no sensory deficits noted Neuro Narrative: Periods where patient stares off, breathes normally, blinks to confrontation, but does not respond, these are very relatively short-lived, until the patient starts aggressively moaning, gagging, followed by spitting out a small amount of clear mucus. This happened about 3 times during my initial evaluation, not always preceded by unresponsiveness. Fransico Coma Scale: document GCS findings Spontaneous Obeys Commands Inappropriate 13 Sensorium / Orientation: awake and alert Meningeal Signs: no meningeal signs Motor Exam: strength 5/5 throughout Skin no rashes or lesions noted and no wounds MDM MDM MDM Narrative Medical decision making narrative: Patient became more alert/aware and remained that way, and very agitated. He began yelling expletives at the staff and myself. Very confused. However he was not becoming physical with anyone, so restraints were not felt to be needed at that time. However, there were significant delays in getting blood work and performing testing to further evaluate him including CT scanning, due to the patient being confused, agitated, yelling, and uncooperative. Therefore I felt it was in the patient's best interest to provide a dose of Haldol which helped to settle him down and allow ancillary testing to be performed. Results are noted as below, CT of the head and abdomen pelvis are basically unremarkable for anything acute, CT of the chest shows post Covid diffuse pulmonary interstitial infiltrates but no pulmonary embolus or other acute abnormality. Radiologist did not compare the CT to the last one that he had on 05/18. I compared the images, they appear similar, grossly speaking with regards to the distribution of the infiltrates. His labs are basically unremarkable, and his vital signs basically remained fairly normal with pulse ox 97% on average on a 6 L nasal cannula while resting under the influence of the Haldol. He did have a slightly elevated lactate which is nonspecific without signs of acute infection, after IV fluids the repeat is normal. He was observed for a while, until the Haldol wore off and he was more awake and alert and able to converse. He was much better. He said that he did not feel short of breath, he felt pretty well, he drank several cups of water without any difficulty, and his vital signs are normal. At 1 point he was on 3 L nasal cannula and he was satting at 97% for a while. When he woke up and sat up, he was not dyspneic, but he was 85% on 3 L for a while, we moved him up to 5 which kept him in the 90s and at no point was he really feeling dyspneic. It is unknown etiology for all of this, but he certainly is not delirious/encephalopathic at this time. He was still having a couple of verbal outbursts to the nurses but nothing threatening and he has been cooperative, following commands, and he has not been physical with anyone. I tried to discuss all of this with the on-call practitioner, however even after leaving a message I did not get a response. I see no reason to admit him back to the hospital medically right now. He was discharged to the care home on 5 L nasal cannula, and at this time he has been doing very well on that same amount of oxygen and sometimes less even when sleeping. I think sending him back to the care center is appropriate at this time. Lab Data Attestation: I reviewed the patient's lab results. Labs: Laboratory Results - last 24 hr 06/06/21 06/06/21 06/06/21 15:15 15:15 15:15 WBC 10.2 RBC 3.90 L Hgb 11.6 L Hct 36.2 L MCV 92.8 MCH 29.7 MCHC 32.0 D RDW Std Deviation 47.0 H RDW Coeff of Jan 14.0 Plt Count 266 MPV 9.9 Immature Gran % (Auto) 1.200 H Neut % (Auto) 71.4 H Lymph % (Auto) 13.5 L [place] % (Auto) 10.9 H Eos % (Auto) 2.7 Baso % (Auto) 0.3 Absolute Neuts (auto) 7.3 Absolute Lymphs (auto) 1.38 Nucleated RBC % 0 PT 13.0 INR 1.0 APTT 32.2 Sodium 141 Potassium 4.2 Chloride 109 H Carbon Dioxide 24.0 Anion Gap 8 BUN 26 H Creatinine 1.07 Estim Creat Clear Calc 61.31 Est GFR (MDRD) Af Amer 89 Est GFR (MDRD) Non-Af 73 BUN/Creatinine Ratio 24.3 H Glucose 163 H Lactic Acid Calcium 8.8 Total Bilirubin 0.40 AST 20 ALT 79 H Alkaline Phosphatase 87 Ammonia Troponin I High Sens 4 Total Protein 6.6 Albumin 2.3 L Globulin 4.3 H Albumin/Globulin Ratio 0.5 L Urine Color Urine Clarity Urine pH Ur Specific [place] Urine Protein Urine Glucose (UA) Urine Ketones Urine Occult Blood Urine Nitrite Urine Bilirubin Urine Urobilinogen Ur Leukocyte Esterase Urine RBC Urine WBC Ur Squamous Epith Cells Urine Bacteria Urine Mucus 06/06/21 06/06/21 06/06/21 15:15 16:00 17:45 WBC RBC Hgb Hct MCV MCH MCHC RDW Std Deviation RDW Coeff of Jan Plt Count MPV Immature Gran % (Auto) Neut % (Auto) Lymph % (Auto) [place] % (Auto) Eos % (Auto) Baso % (Auto) Absolute Neuts (auto) Absolute Lymphs (auto) Nucleated RBC % PT INR APTT Sodium Potassium Chloride Carbon Dioxide Anion Gap BUN Creatinine Estim Creat Clear Calc Est GFR (MDRD) Af Amer Est GFR (MDRD) Non-Af BUN/Creatinine Ratio Glucose Lactic Acid 2.4 H* Calcium Total Bilirubin AST ALT Alkaline Phosphatase Ammonia 12.0 Troponin I High Sens Total Protein Albumin Globulin Albumin/Globulin Ratio Urine Color Yellow Urine Clarity Clear Urine pH 6.0 Ur Specific [place] 1.020 Urine Protein 15 H Urine Glucose (UA) Normal Urine Ketones Negative Urine Occult Blood Negative Urine Nitrite Negative Urine Bilirubin Negative Urine Urobilinogen Normal Ur Leukocyte Esterase 25 H Urine RBC 0 SEEN Urine WBC 0-5 SEEN Ur Squamous Epith Cells 0 SEEN Urine Bacteria 0 SEEN Urine Mucus 0 SEEN 06/06/21 20:10 WBC RBC Hgb Hct MCV MCH MCHC RDW Std Deviation RDW Coeff of Jan Plt Count MPV Immature Gran % (Auto) Neut % (Auto) Lymph % (Auto) [place] % (Auto) Eos % (Auto) Baso % (Auto) Absolute Neuts (auto) Absolute Lymphs (auto) Nucleated RBC % PT INR APTT Sodium Potassium Chloride Carbon Dioxide Anion Gap BUN Creatinine Estim Creat Clear Calc Est GFR (MDRD) Af Amer Est GFR (MDRD) Non-Af BUN/Creatinine Ratio Glucose Lactic Acid 0.7 Calcium Total Bilirubin AST ALT Alkaline Phosphatase Ammonia Troponin I High Sens Total Protein Albumin Globulin Albumin/Globulin Ratio Urine Color Urine Clarity Urine pH Ur Specific [place] Urine Protein Urine Glucose (UA) Urine Ketones Urine Occult Blood Urine Nitrite Urine Bilirubin Urine Urobilinogen Ur Leukocyte Esterase Urine RBC Urine WBC Ur Squamous Epith Cells Urine Bacteria Urine Mucus Radiography Diagnostic Testing: Clinical Impression(s) from Imaging Studies Abdomen/Pelvis CT 06/06/21 15:37 IMPRESSION: 1. No evidence masses bowel obstruction abscess free fluid or free air. No evidence diverticulitis. Normal appendix is noted. 2. LEFT renal cysts are noted, no renal masses, calcifications or evidence of obstructive uropathy. 3. Incidental note of a subcapsular cyst in the RIGHT hepatic lobe. 4. Diffuse bibasilar multi lobar infiltrate/pneumonia. Electronically Signed: Xavier Loyd MD at 17:40 EST Tel , Service support , Brain CT 06/06/21 15:37 IMPRESSION: 1. Mild involutional changes and minimal chronic microvascular deep white matter disease. 2. No intracranial mass, hemorrhage or acute territorial infarct. 3. No radiographically significant disease. Electronically Signed: Xavier Loyd MD at 17:16 EST Tel , Service support , Chest CTA 06/06/21 15:37 IMPRESSIONS: 1. No CTA evidence of pulmonary embolism. 2. No CTA evidence of aortic aneurysm or dissection 3. Cardiac contours are upper limit of normal, coronary vascular calcifications are present. No pericardial effusion. 4. Extensive diffuse multi lobar interstitial and groundglass infiltrate/pneumonia, consistent with atypical viral pneumonia. Electronically Signed: Xavier Loyd MD at 17:35 EST EKG Initial EKG: Attestation: I personally reviewed and interpreted this EKG as follows: Interpretation: Sinus Rhythm (60) and No Acute Injury Pattern Discharge Plan Triage Chief Complaint: Shortness of Breath ED Provider: Anival Neves Dx/Rx/DC Orders Clinical Impression: Agitation, Hypoxemia, Interstitial pneumonitis Instructions: If Oxygen Is Prescribed Prescriptions: No Action acetaminophen [Tylenol] 325 mg Tablet 650 mg PO Q6H PRN PRN (Reason: Pain Score 1-10/Temp > 100.7 F) Qty: 0 RF: 0 albuterol sulfate [Ventolin HFA] 90 mcg/actuation Hfa Aerosol Inhaler 2 puff inhalation Q4H PRN PRN (Reason: WHEEZING) Qty: 0 RF: 0 Mucus Relief ER 1,200 mg Tablet Extended Release 12hr 1,200 mg PO BID Qty: 0 RF: 0 bisacodyl [Biscolax] 10 mg Suppository 10 mg UT DAILY PRN (Reason: Constipation) RF: 0 Primary Care Provider: Aissatou Hernandez Referrals: Aissatou Hernandez MD [Primary Care Provider] - As soon as possible Activity Restrictions/Additional Instructions: Patient has a negative medical work-up, and his chest CT is similar to what it was 2 weeks ago, he has been satting well on 5 L nasal cannula, and oftentimes has been in the mid-high 90% on 3 L nasal cannula. At times agitated, responded well to a single dose of Haldol. Disposition Disposition: Home, Self Care
--- NOTE | 2021-06-06 15:53 | ED.RN ---
PT STARTS COUGHING AND SPITS INTO EMESIS BAG. NOTHING NOTED IN THE BAG. PT KEEPS REPEATING AND YELLING I'VE BEEN WAITING FOR MEDS FOR MY HEART SINCE 7 O'CLOCK THIS MORNING. I'VE BEEN UP SINCE 7 O'CLOCK THIS MORNING PT YELLING AND SCREAMING THEN BACK TO STARING AND NOT ANSWERING QUESTIONS
[2021-06-06] MEDS: 0.9% Normal Saline 1,000 ML 250 ML IV (16:00)
[2021-06-06] MEDS: Ondansetron 4 MG/2 ML Vial IV (16:01)
[2021-06-06 16:04] LABS: Absolute Lymphocyte Count 1.38 X10^3/uL (0.83-4.51); Absolute Neutrophil Count 7.3 X10^3/uL (2.0-7.7); Basophil# 0.03 X10^3/uL; Basophil% 0.3 % (0-1); Eosinophil# 0.28 X10^3/uL; Eosinophils% 2.7 % (0-5); Hematocrit 36.2 % (40-54); Hemoglobin 11.6 g/dL (13.0-16.5); Lymphocyte # 1.38 X10^3/ul (0.83-4.51); Lymphocyte % 13.5 % (19-41); Mean Corpuscular Hgb 29.7 pg (27.0-32.0); Mean Corpuscular Volume 92.8 fL (80-94); Mean Platelet Vol. 9.9 fl (6.2-12.0); Monocyte# 1.11 X10^3/uL; Monocyte% 10.9 % (0-10); NRBC Flagged by Analyzer 0 % (0-5); Neutrophil # 7.29 X10^3/uL (2.7-7.7); Neutrophil % 71.4 % (47-70); Platelet Count 266 K/mm3 (150-450); White Blood Count 10.2 K/mm3 (4.4-11.0)
[2021-06-06] MEDS: Haloperidol Lactate 5 MG/ML Vial IV (16:13)
[2021-06-06 16:20] LABS: Partial Thromboplast Time 32.2 Seconds (24.1-36.2)
[2021-06-06 16:28] LABS: ALB/GLOB Ratio 0.5 RATIO (0.9-2.4); AST(SGOT) 20 U/L (15-37); Alanine Aminotransfer ALT/SGPT 79 U/L (16-61); Albumin, Serum 2.3 g/dL (3.2-5.0); Alkaline Phosphatase 87 U/L (45-117); Anion Gap 8 (5-15); BUN 26 mg/dL (7-18); BUN/Creat Ratio 24.3 RATIO (10-20); Calcium,Total 8.8 mg/dL (8.5-10.1); Chloride 109 mmol/L (98-107); Creatinine, Serum 1.07 mg/dL (0.70-1.30); EST Glomerular Filtration Rate 73 mL/min (>60); Est Glom Filt Rate - Afr Amer 89 mL/min (>60); Estimated Creatinine Clearance 61.31 ml/min; Globulin 4.3 g/dL (2.2-4.2); Glucose 163 mg/dL (74-106); Lactic Acid 2.4 mmol/L (0.4-1.9); Potassium 4.2 mmol/L (3.5-5.1); Protein, Total 6.6 g/dL (6.4-8.2); Sodium Level 141 mmol/L (136-145); Troponin-I HS 4 pg/mL (3.0-78.0)
[2021-06-06 17:58] LABS: Bacteria 0 SEEN /hpf (None Seen); Mucous, Urine 0 SEEN /hpf (<or=2+); Red Blood Cells-Urine 0 SEEN /hpf (0-5); Squamous Epithelial Cells - UA 0 SEEN /hpf (0-5)
[2021-06-06 18:06] LABS: Color, Urine Yellow (Yellow); Glucose, Dipstick Normal (Normal); Ketone-Dipstick Negative (Negative); Leukocyte Esterase-Dipstick 25 /ul (Negative); Nitrite-Dipstick Negative (Negative); Occult Blood-Urine Negative /ul (Negative); Protein-Dipstick 15 mg/dl (Negative); Urine Bilirubin Dipstick Negative (Negative); Urine Clarity Clear (Clear); Urine Urobilinogen Normal (Normal); White Blood Cells 0-5 SEEN /hpf (0-5)
[2021-06-06 20:01] LABS: Reflex Lactate? Y
[2021-06-06 20:51] LABS: Lactic Acid 0.7 mmol/L (0.4-1.9)
[2021-06-07 00:05] VITALS: BP 103/60; PULSE 70; RESP 27; TEMP 37; O2SAT 97
[2021-06-07 01:03] VITALS: BP 106/73; PULSE 80; RESP 21; O2SAT 94
[2021-06-07 02:26] VITALS: BP 114/73; PULSE 74; PULSE 75; RESP 22; O2SAT 94
== END 2021-06-07 02:54 | disposition home or self-care (01) ==
PROVIDERS: Emergency Provider Emergency Medicine; PCP Internal Medicine
DX: J84.89 Other specified interstitial pulmonary diseases (principal); R09.02 Hypoxemia; R45.1 Restlessness and agitation; N28.1 Cyst of kidney, acquired; F17.210 Nicotine dependence, cigarettes, uncomplicated; Z86.16 Personal history of COVID-19
CPT/HCPCS: 70450; 71275; 74177; 80053; 81001; 82140; 83605; 84484; 85025; 85610; 85730; 87040; 87086; 93005; 99285; J7030; Q9967; A4216; J2405

== ENCOUNTER 2021-06-08 14:50 | Emergency (ER) | payer MEDICARE, MEDICAID, SELFPAY ==
[2021-06-08 14:53] VITALS: BP 122/76; PULSE 89; RESP 13; RESP 89; TEMP 35.5; TEMP 37; O2SAT 92; O2SAT 96; BMI 20.7
[2021-06-08 15:03] VITALS: BP 122/76; PULSE 88; RESP 16; TEMP 37; O2SAT 96
--- NOTE | 2021-06-08 15:27 | RAD_ITS ---
INDICATION: mx change EXAMINATION/TECHNIQUE: X-RAY - XR Chest 1 View COMPARISON: 06/01/2021. FINDINGS: LINES/DEVICES: EKG leads are seen superimposing the chest. LUNGS: Prominence of the bronchovascular and interstitial lung markings visualized bilaterally, scattered areas of patchy airspace opacification visualized in bilateral lung nova demonstrating slightly increased opacification in comparison to the prior study. Emphysematous changes visualized. No evidence of pneumothorax or pleural effusion. MEDIASTINUM AND CARDIOVASCULAR STRUCTURES: Cardiac silhouette not enlarged. BONES AND SOFT TISSUES: Degenerative bone changes. RAD/Chest 1 View (Portable) IMPRESSION: Bilateral airspace opacification demonstrates slight prominence in comparison to the prior study. Electronically Signed: Moo Ojeda MD at 15:55 EST Tel , Service support ,
--- NOTE | 2021-06-08 15:29 | EDS_ITS ---
HPI History of Present Illness Chief Complaint: Confusion Informant: patient, EMS and SNF Onset/Context/Timing Onset: Today Context: Gradual Onset Timing: Continuous Current Severity: Mild Maximum Severity: Mild Narrative Narrative: 75-year-old male who I believe is initially living at home then had a admission for lengthy periods at the [facility] for COVID-19 and its complications. Since that time he was discharged to [facility]. Spoke to the staff today. They said he had ciliated respiratory rate and they sent him in. He has had that in the past. Patient is unable to give me any history. Prior similar symptoms: Yes Recent Illness/Hospitalization: Yes [facility] Medical History Acute respiratory failure with hypoxia LIBIA (acute kidney injury) Aspiration pneumonia Pneumonia due to COVID-19 virus Severe malnutrition Home Medications acetaminophen [Tylenol] 650 mg PO Q6H PRN PRN #0 tab 06/04/21 [Rx Last Taken Unknown] albuterol sulfate [Ventolin HFA] 2 puff INHALATION Q4H PRN PRN #0 g 06/04/21 [Rx Last Taken Unknown] guaifenesin [Mucus Relief ER] 1,200 mg PO BID #0 tab 06/04/21 [Rx Last Taken Unknown] bisacodyl [Biscolax] 10 mg AL DAILY PRN 06/06/21 [History Last Taken Unknown] Allergy/AdvReac Type Severity Reaction Status Date / Time No Known Allergies Allergy Verified 05/18/21 08:51 Family History Other Cancer Social History Smoking Status: Former smoker ROS ROS ED ROS Narrative Unable to the patient's mental status. Review of Systems ROS Unobtainable: Denies due to mental status EXAM Physical Exam Narrative Exam Narrative: Six 5-year-old male vital signs are stable. On 5 L he is 96%. HEENT exam dry mucous memories. No signs of trauma. Eyes are open. Neck nontender no lymphadenopathy. Lungs clear to auscultation. Heart regular rhythm rate about 90 no murmur. Chest wall nontender. Abdomen soft nontender. Moving all 4 extremities. Nontender no edema. No deformity. Back nontender. Skin pale but no rashes. Neurologically he is awake. His eyes are open. He is moving all 4 extremities. He is speaking nonsense and he does not give any hist ory or follow commands or answer any questions. Const Vital Signs: 06/08/21 14:53 06/08/21 15:03 06/08/21 15:04 Temperature 98.6 F 98.6 F Temperature Source Temporal Temporal Pulse Rate 89 88 Respiratory Rate 89 H 16 Respiratory Effort Normal Respiratory Pattern Normal Blood Pressure 122/76 H 122/76 H Blood Pressure Mean 91 91 Pulse Ox 96 96 Oxygen Delivery Method Nasal Cannula Nasal Cannula Oxygen Flow Rate (L/min) 5 5 06/08/21 17:09 Temperature 98.9 F Temperature Source Temporal Pulse Rate 111 H Respiratory Rate 28 H Respiratory Effort Respiratory Pattern Blood Pressure 151/74 H Blood Pressure Mean 99 Pulse Ox 93 Oxygen Delivery Method Nasal Cannula Oxygen Flow Rate (L/min) 5 Positive well nourished and well developed; Negative for obese, cachectic, contractures or unkempt General Appearance ED: well developed, NAD and pallor; Negative for unkempt, cachectic, contractures, cyanotic or diaphoretic Nutritional Appearance: Negative for cachectic or obese HEENT Reports dry mucous membranes Negative for trauma or tenderness Mouth ED: Yes dry mucous membranes Mouth: dry mucous membranes Eyes PERRL and EOMs intact bilaterally Neck no lymphadenopathy, supple and no JVD General: Negative for tenderness Chest Wall inspection of chest normal and palpation of chest normal Resp normal respiratory effort and clear to auscultation bilaterally Effort and Inspection: Negative for pain with movement Auscultation: Negative for rales, rhonchi or wheezes Cardio regular rate, regular rhythm, S1 normal heart sound, S2 normal heart sound and no murmurs GI normal to inspection, nondistended, normoactive bowel sounds, non-tender, non- distended and no masses Auscultation: normoactive bowel sounds Palpation: soft; Negative for tender, guarding or rebound tenderness present Back/Spine no CVA tenderness General Back: Negative for CVA tenderness Cervical Spine: Negative for cervical spine tenderness Thoracic Spine / Upper Back: Negative for thoracic spinal tenderness Extremity normal to inspection General Extremety ED: Negative for edema or tenderness General Extremity: Negative for edema Neuro No oriented x3 Sensorium / Orientation: alert and orientation impaired; Negative for lethargic or stuporous Motor Exam: strength 5/5 throughout Psych Appearance: Negative for unkempt Attitude: agitated Skin no rashes or lesions noted and no wounds General Skin Exam: pallor; Negative for jaundice MDM MDM MDM Narrative Medical decision making narrative: Six 5-year-old male from a long term with possible mental status change. Clinically looks dehydrated. He has had extensive work-up done here recently for a lengthy hospital stay due to Covid and Covid complications. Received IV fluids screening labs. Repeat exam at 6:15 PM patient is doing well resting comfortably in bed. I do not see any new changes. These are all chronic conditions with this patient and he will be returned back to the long term who I spoke to shortly after his arrival. Lab Data Attestation: I reviewed the patient's lab results. Lab results narrative: CBC shows a white count 9. Hemoglobin 11.4 which is his baseline. Platelets of 252. Electrolytes gap of 8 BUN 27 creatinine of 1. Liver enzymes unremarkable. UA negative. Chest x-ray chronic with interstitial disease and unchanged from prior. Labs: Laboratory Results - last 24 hr 06/08/21 06/08/21 06/08/21 15:00 15:00 16:00 WBC 9.0 RBC 3.76 L Hgb 11.4 L Hct 35.2 L MCV 93.6 MCH 30.3 MCHC 32.4 RDW Std Deviation 47.5 H RDW Coeff of Jan 13.9 Plt Count 252 MPV 10.3 Immature Gran % (Auto) 1.900 H Neut % (Auto) 77.4 H Lymph % (Auto) 8.7 L [place] % (Auto) 10.5 H Eos % (Auto) 0.9 Baso % (Auto) 0.6 Absolute Neuts (auto) 7.0 Absolute Lymphs (auto) 0.78 L Nucleated RBC % 0 Sodium 143 Potassium 4.4 Chloride 111 H Carbon Dioxide 24.0 Anion Gap 8 BUN 27 H Creatinine 1.06 Estim Creat Clear Calc 64.66 Est GFR (MDRD) Af Amer 89 Est GFR (MDRD) Non-Af 74 BUN/Creatinine Ratio 25.5 H Glucose 126 H Calcium 9.1 Total Bilirubin 0.40 AST 27 ALT 70 H Alkaline Phosphatase 85 Total Protein 7.0 Albumin 2.4 L Globulin 4.6 H Albumin/Globulin Ratio 0.5 L Urine Color Yellow Urine Clarity Clear Urine pH 6.5 Ur Specific [place] 1.015 Urine Protein 30 H Urine Glucose (UA) Normal Urine Ketones 15 H Urine Occult Blood 10 H Urine Nitrite Negative Urine Bilirubin Negative Urine Urobilinogen 1 H Ur Leukocyte Esterase 25 H Urine RBC 0 SEEN Urine WBC 0 SEEN Ur Squamous Epith Cells 0 SEEN Urine Bacteria 0 SEEN Urine Mucus 0 SEEN Radiography Chest X-Ray - ED: 1 View, Read by ED Physician, Read by Radiologist, Heart, Reinaldo gs, Mediastinum, Bony Structures and Chronic Changes Diagnostic Testing: Clinical Impression(s) from Imaging Studies Chest X-Ray 06/08/21 15:27 IMPRESSION: Bilateral airspace opacification demonstrates slight prominence in comparison to the prior study. Electronically Signed: Moo Ojeda MD at 15:55 EST Tel , Service support , Chest x-ray, single view, portable interpreted myself the radiologist shows chronic interstitial airspace disease but no acute process. Unchanged from prior. Rhythm Strip Rhythm Strip: Sinus Tach Rate: 102 Ectopy: None EKG Initial EKG: Attestation: I personally reviewed and interpreted this EKG as follows: Interpretation: No Acute Injury Pattern and Sinus Tachycardia Comments: Sinus tachycardia rate of 102 no acute signs of VT nor ischemia. Prior EKG tracings: not available for review Discharge Plan Triage Chief Complaint: Confusion ED Provider: Pino Daniels Dx/Rx/DC Orders Clinical Impression: Agitation Instructions: ED Confusion Prescriptions: No Action acetaminophen [Tylenol] 325 mg Tablet 650 mg PO Q6H PRN PRN (Reason: Pain Score 1-10/Temp > 100.7 F) Qty: 0 RF: 0 albuterol sulfate [Ventolin HFA] 90 mcg/actuation Hfa Aerosol Inhaler 2 puff inhalation Q4H PRN PRN (Reason: WHEEZING) Qty: 0 RF: 0 Mucus Relief ER 1,200 mg Tablet Extended Release 12hr 1,200 mg PO BID Qty: 0 RF: 0 bisacodyl [Biscolax] 10 mg Suppository 10 mg AL DAILY PRN (Reason: Constipation) RF: 0 Primary Care Provider: Aissatou Hernandez Referrals: Aissatou Hernandez MD [Primary Care Provider] - As soon as possible Activity Restrictions/Additional Instructions: No new findings today in the emergency department. This appears to be his baseline. Have him follow-up with your electromedical equipment repairer soon as possible. Disposition Disposition: Home, Self Care
[2021-06-08 15:49] LABS: Absolute Lymphocyte Count 0.78 X10^3/uL (0.83-4.51); Basophil# 0.05 X10^3/uL; Basophil% 0.6 % (0-1); Eosinophil# 0.08 X10^3/uL; Eosinophils% 0.9 % (0-5); Hematocrit 35.2 % (40-54); Hemoglobin 11.4 g/dL (13.0-16.5); Lymphocyte # 0.78 X10^3/ul (0.83-4.51); Lymphocyte % 8.7 % (19-41); Mean Corp Hgb Conc 32.4 g/dL (32-36); Mean Corpuscular Hgb 30.3 pg (27.0-32.0); Mean Corpuscular Volume 93.6 fL (80-94); Mean Platelet Vol. 10.3 fl (6.2-12.0); Monocyte# 0.95 X10^3/uL; Monocyte% 10.5 % (0-10); NRBC Flagged by Analyzer 0 % (0-5); Neutrophil # 6.98 X10^3/uL (2.7-7.7); Neutrophil % 77.4 % (47-70); Platelet Count 252 K/mm3 (150-450); RBC Distribution Width CV 13.9 % (11.6-14.6); RBC Distribution Width SD 47.5 fl (35.1-43.9); Red Blood Count 3.76 M/mm3 (4.6-6.2)
[2021-06-08] MEDS: 0.9% Normal Saline 1,000 ML 1000 ML IV (15:58)
--- NOTE | 2021-06-08 15:58 | EKG12_ITS ---
Test Reason : CONFUSION Blood Pressure : / mmHG Vent. Rate : 102 BPM Atrial Rate : 102 BPM P-R Int : 132 ms QRS Dur : 096 ms QT Int : 354 ms P-R-T Axes : 044 031 039 degrees QTc Int : 461 ms Sinus tachycardia Low voltage QRS Borderline ECG Confirmed by TAO MCKEON MD ([id number]), marketing editor CHANTELL CHAVEZ ([id number]) on 06/24/2021 10:36:56 AM Referred By: MICAELA Confirmed By:TAO MCKEON MD
[2021-06-08 16:03] LABS: ALB/GLOB Ratio 0.5 RATIO (0.9-2.4); AST(SGOT) 27 U/L (15-37); Alanine Aminotransfer ALT/SGPT 70 U/L (16-61); Albumin, Serum 2.4 g/dL (3.2-5.0); Alkaline Phosphatase 85 U/L (45-117); Anion Gap 8 (5-15); BUN 27 mg/dL (7-18); BUN/Creat Ratio 25.5 RATIO (10-20); Calcium,Total 9.1 mg/dL (8.5-10.1); Chloride 111 mmol/L (98-107); Creatinine, Serum 1.06 mg/dL (0.70-1.30); EST Glomerular Filtration Rate 74 mL/min (>60); Est Glom Filt Rate - Afr Amer 89 mL/min (>60); Estimated Creatinine Clearance 64.66 ml/min; Globulin 4.6 g/dL (2.2-4.2); Glucose 126 mg/dL (74-106); Potassium 4.4 mmol/L (3.5-5.1); Sodium Level 143 mmol/L (136-145)
[2021-06-08 16:11] LABS: Bacteria 0 SEEN /hpf (None Seen); Mucous, Urine 0 SEEN /hpf (<or=2+); Red Blood Cells-Urine 0 SEEN /hpf (0-5); Squamous Epithelial Cells - UA 0 SEEN /hpf (0-5); White Blood Cells 0 SEEN /hpf (0-5)
[2021-06-08 16:13] LABS: Color, Urine Yellow (Yellow); Glucose, Dipstick Normal (Normal); Ketone-Dipstick 15 mg/dl (Negative); Leukocyte Esterase-Dipstick 25 /ul (Negative); Nitrite-Dipstick Negative (Negative); Occult Blood-Urine 10 /ul (Negative); Protein-Dipstick 30 mg/dl (Negative); Specific Gravity, Urine 1.015 (1.002-1.030); Urine Bilirubin Dipstick Negative (Negative); Urine Clarity Clear (Clear); Urine Urobilinogen 1 mg/dl (Normal); Urine pH 6.5 (5.0 - 8.0)
[2021-06-08 17:09] VITALS: BP 151/74; PULSE 111; RESP 28; TEMP 37.2; O2SAT 93
--- NOTE | 2021-06-08 18:29 | ED.RN ---
PT AGITATED, HR INCREASED TO 120'S. PT DIAPHORETIC AND MOVING AROUND IN THE BED. DR. CANCINO AWARE. REPORTS PT CAN GO HOME, PER DR. CANCINO HR ELEVATED DUE TO AGITATION. PT AWAITING RIDE HOME. VERBAL ORDERS TO D/C FROM MONITOR.
[2021-06-08 18:31] VITALS: BP 132/91; PULSE 120; RESP 25; O2SAT 93
--- NOTE | 2021-06-08 18:35 | ED.RN ---
THIS RN CONTACTED [facility] NURSE ON PT UNIT. THIS RN GAVE REPORT TO F NURSE THAT PT WILL BE DISCHARGED AND TO FOLLOW UP WITH PCP. PT RESTING COMFORTABLY IN BED AFTER WARM BLANKETS GIVEN AND LIGHTING ADJUSTED PER PT REQUEST. [facility] ETA 30 MIN.
== END 2021-06-08 18:45 | disposition home or self-care (01) ==
PROVIDERS: Emergency Provider Emergency Medicine; PCP Internal Medicine
DX: R45.1 Restlessness and agitation (principal); Z87.891 Personal history of nicotine dependence; Z86.16 Personal history of COVID-19
CPT/HCPCS: 71045; 80053; 81001; 85025; 93005; 99285; P9612